=== PATIENT | male | born 1950 | race Caucasian/White ===

== ENCOUNTER → 2019-03-30 11:06 | Outpatient (BNVA) | payer MEDICARE, OTHER, SELFPAY | PROVIDERS: Family Provider Registered Nurse; PCP Registered Nurse; Visit Provider Registered Nurse | DX: E11.9 Type 2 diabetes mellitus without complications (principal); Z79.4 Long term (current) use of insulin; I10 Essential (primary) hypertension | CPT/HCPCS: 83036 ==

== ENCOUNTER → 2019-09-28 09:12 | Outpatient (BNVA) | payer MEDICARE, OTHER, SELFPAY | PROVIDERS: Family Provider Registered Nurse; PCP Registered Nurse; Visit Provider Registered Nurse | DX: E11.9 Type 2 diabetes mellitus without complications (principal); Z79.4 Long term (current) use of insulin; E78.5 Hyperlipidemia, unspecified; Z12.5 Encounter for screening for malignant neoplasm of prostate; I10 Essential (primary) hypertension; E11.69 Type 2 diabetes mellitus with other specified complication | CPT/HCPCS: 80053; 80061; 83036; 85025; G0103 ==

== ENCOUNTER 2019-11-15 13:42 | Outpatient (CLI) | payer MEDICARE, OTHER, SELFPAY ==
--- NOTE | 2019-11-15 13:30 | USCV_ITS ---
Nolan Palmer Age: 69 Gender: M : 1950 Exam Date: 11/15/2019 14:04 Ordering Phys: Jakob Dodd M.D ([email or web address]) Technologist: Arian Mckeon Exam Location: [facility] [place] Indication: DYSPNEA BP: 156 / 83 HR: 68 Rhythm: Sinus Technical Quality: Fair MEASUREMENTS (Male / Female) Normal Values 2D ECHO LV Diastolic Diameter PLAX 3.4 cm 4.2 - 5.9 / 3.9 - 5.3 cm LV Systolic Diameter PLAX 2.3 cm IVS Diastolic Thickness 0.9 cm 0.6 - 1.0 / 0.6 - 0.9 cm IVS Systolic Thickness 1.3 cm LVPW Diastolic Thickness 1.4 cm 0.6 - 1.0 / 0.6 - 0.9 cm LVPW Systolic Thickness 1.5 cm LVOT Diameter 2.1 cm LV Ejection Fraction 2D Teich 59.0 % LV Ejection Fraction MOD 2C 51.7 % LV Ejection Fraction 2C AL 50.4 % LA Diameter 4.4 cm LA Width 4.5 cm LA Height 5.9 cm RA Width 4.2 cm RA Height 5.0 cm M-MODE LV Diastolic Diameter MM 4.0 cm 4.2 - 5.9 / 3.9 - 5.3 cm LV Systolic Diameter MM 2.1 cm LV Ejection Fraction MM Teich 79.0 % IVS Diastolic Thickness MM 1.1 cm 0.6 - 1.0 / 0.6 - 0.9 cm IVS Systolic Thickness MM 1.7 cm LVPW Diastolic Thickness MM 1.5 cm 0.6 - 1.0 / 0.6 - 0.9 cm LVPW Systolic Thickness MM 1.9 cm RV Diastolic Diameter MM 2.4 cm Aortic Annulus Diameter 3.9 cm LA Ao Ratio MM 1.1 MV E Point Septal Separation 0.9 cm DOPPLER AV Peak Velocity 135.0 cm/s LVOT Peak Velocity 109.0 cm/s AV Area Cont Eq vti 3.0 cm squared AV Area Cont Eq pk 2.8 cm squared MV Area PHT 5.0 cm squared Mitral E to A Ratio 1.2 MV E' Velocity 45.0 cm/s Mitral E to MV E' Ratio 6.4 Mitral E to LV E' Lateral Ratio 7.7 Mitral E to LV E' Septal Ratio 5.5 TR Peak Velocity 163.7 cm/s TR Peak Gradient 10.7 mmHg TV Peak E Velocity 123.0 cm/s Right Atrial Pressure 3.0 mmHg Pulmonary Artery Systolic Pressu 13.7 mmHg PV Peak Velocity 94.0 cm/s FINDINGS Left Ventricle Normal left ventricular cavity size. Normal left ventricular systolic function. No regional wall motion abnormalities. Left ventricular ejection fraction is estimated at 65 %. Grade II/IV diastolic dysfunction, moderately elevated filling pressures. Right Ventricle The right ventricle is normal in size and function. Right Atrium The right atrium is normal in size. Left Atrium The left atrium is normal in size. Mitral Valve Structurally normal mitral valve without significant stenosis or prolapse. There is no mitral regurgitation. Aortic Valve Aortic valve sclerosis without stenosis. No aortic valve regurgitation. Tricuspid Valve Structurally normal tricuspid valve without significant stenosis or regurgitation. Pulmonary artery systolic pressure is normal. Pulmonic Valve Structurally normal pulmonic valve without significant stenosis. There is no pulmonic regurgitation. Pericardium Normal pericardium without effusion. Aorta Normal ascending aorta dimension. CONCLUSIONS 1-Normal left ventricular cavity size. Normal left ventricular systolic function. No regional wall motion abnormalities. Left ventricular ejection fraction is estimated at 65 %. Grade II/IV diastolic dysfunction, moderately elevated filling pressures. 2-There is no pericardial effusion. 3-No significant valve abnormalities. 4-Pulmonary artery systolic pressure is within normal limits. 5-Right atrial pressure is around 5 mm of mercury. 6-No significant change since the prior echocardiogram study of 04/26/2018. Erich Paz MD (Electronically Signed) Final Date: 15 November 2019 18:26 S
--- NOTE | 2019-11-15 14:15 | USCV_ITS ---
Nolan Palmer Age: 69 Gender: M : 1950 Exam Date: 11/15/2019 13:59 Ordering Phys: Jakob Dodd M.D ([email or web address]) Technologist: Exam Location: [facility] [place] Indication: CLAUDICATION RIGHT LEFT Brachial 153.00 mmHg Brachial 149.00 mmHg Pressure (mmHg) Waveform Pressure (mmHg) Waveform 189.00 STEEL RIGGER 186.00 188.00 DPA 190.00 1.24 Ankle/Brachial Index 1.24 113.00 Pre-Exercise Toe Pressure 129.00 0.74 Pre-Exercise Toe/Brachial Index 0.84 FINDINGS Normal resting ABIs bilaterally Normal resting TBIs bilaterally CONCLUSIONS No evidence of any significant arterial obstruction, based on the above findings. Dr Beth Zuluaga MD [facility] (Electronically Signed) Final Date: 15 November 2019 19:00 S
== END 2019-11-15 13:43 | disposition home or self-care (01) ==
LOC: RAD 13:47
PROVIDERS: PCP Registered Nurse; Visit Provider Internal Medicine
DX: I73.9 Peripheral vascular disease, unspecified (principal); R06.00 Dyspnea, unspecified; I51.81 Takotsubo syndrome
CPT/HCPCS: 93306; 93922

== ENCOUNTER 2019-12-04 09:11 | Outpatient (CLI) | payer MEDICARE, OTHER, SELFPAY ==
--- NOTE | 2019-12-04 12:59 | ONC FU_ITS ---
Dr. Reilly Patient Follow-Up Note Patient: Nolan Palmer Unit #: [id number]: 1950 Dicatated By: Van Reilly M.D.Date of Visit:Dec 04, 2019 Onc Med Follow-up/Prog Note Chief Complaint: Monoclonal gammopathy. 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 He was initially found to have an IgG kappa monoclonal gammopathy during evaluation for peripheral neuropathy in 2006. There was no evidence clinically of myeloma. He had previously been followed by Dr. Patel Hanna in [place]. I had seen him initially in March 2014. He has been followed on observation/expectant management. He has multiple medical illnesses. His main problems have been degenerative disease of the spine with chronic low back pain and neuropathy pain in the lower extremities. Both of these have limited his activity pretty significantly. He underwent extensive evaluation in [place] which included MRI, myelogram, CT scans, and ultrasound of both legs. In April 2017 he underwent placement of an implantable spinal cord stimulator. He tolerated the procedure well. His other illnesses include hypertension, hyperlipidemia, and type 2 diabetes. He has peripheral neuropathy, and he apparently has a diagnosis of multiple sclerosis. He also has degenerative arthritis and obstructive sleep apnea. He is a nonsmoker. INTERIM HISTORY: As of his follow-up visit in May 2016 his protein electrophoresis showed no significant change in the monoclonal proteinemia. There were 2 monoclonal bands present, one measuring 0.58 g/dL and the other measuring 0.17 g/dL. His 24-hour urine protein electrophoresis at that time showed a total protein excretion of 630 mg, but only 2.2% was monoclonal protein. In November 2016 there was a slight increase in the larger of the M proteins, to 0.73 g/dL. His other parameters, though, remained stable, and he continued on observation/expectant management. As of his follow-up visit in November 2018 there has been no further increase in the serum proteins and his overall clinical status appeared stable. He is seen for a followup visit. He has been feeling pretty good generally, though his energy is not great. He is able to do light housework. ECOG score is 1. His appetite is moderate. By our scale he has lost weight, but that may not be accurate. He does not have fever or night sweats. His breathing has been good. There is for having some dry cough. He does not complain of chest pain. He has no GI complaints other than constipation, which he manages adequately with stool softeners. He has frequent urination. He has chronic pain in his legs and feet, and he also has back pain. He does not complain of headache. He occasionally has lightheadedness. He also has some numbness/tingling in his legs and feet. Medications: amLODIPine Besylate 1 (10 mg) Tablet Oral daily, Aspirin 1 (81 mg) Tablet Oral daily, Crestor 1 (20 mg) Tablet Oral daily, Ferrous Sulfate 1 (325 (65 fe) mg) Tablet Oral daily, Fish Oil 1 Capsule Oral daily, Gabapentin 1 (600 mg) Tablet Oral t.i.d., Gemfibrozil 1 (600 mg) Tablet Oral t.i.d., Klor-Con M10 2 (10 meq) Tablet, controlled release Oral b.i.d., Levemir 100 Units (of 100 Units/mL) Subcutaneous daily, Magnesium 1 Tablet Oral daily, MetFORMIN HCl 1 (1000 mg) Tablet Oral b.i.d., NovoLOG 25 Units (of 100 Units/mL) Subcutaneous, Zinc 1 Capsule Oral daily Allergies: BARLEY and PEAS. Review of Systems: Constitutional - His energy is not great. Appetite is moderate. Weight is down a little by our scale. He has no fever or night sweats. ECOG score is 1, ENMT - No sinus congestion/drainage. No mouth sores. No sore throat or difficulty swallowing, Hematologic/Lymphatic - No abnormal bruising or bleeding, Respiratory - His breathing has been good. He has some nonproductive cough. No pleuritic pain or hemoptysis, Cardiovascular - No angina pain. No palpitations, Gastrointestinal - No nausea or vomiting. No heartburn or acid reflux. He has some constipation, but bowel function is adequate with stool softeners and/or prunes. No blood in the stool or black stools, Genitourinary (M) - No dysuria or hematuria. He has urinary frequency. No urgency or incontinence, Musculoskeletal - He has pain in his feet, legs, and back, Integumentary - No skin changes, Neurologic - No headache or dizziness. He has some neuropathy in his legs and feet. No other focal neurologic symptoms, Psychiatric - No anxiety. He has some depression. He has difficulty falling asleep. Vital Signs: Performed on Dec 04, 2019 08:35 Height - 66.00 in Weight - 246 lbs (HIGH) BSA - 2.18 sq.m BMI - 39.71 (HIGH) Temperature - 98.3 F (LOW) Pulse - 63 /min Respiration - 17 /min BP - 168/88 mm(hg) (HIGH) O2 Sat - 98 % Physical Examination: Constitutional - He looks pretty good generally, Eyes - Sclerae nonicteric. Conjunctivae clear, ENMT - There are no lesions noted in the oral cavity, Hematologic/Lymphatic - No cervical, clavicular, or axillary adenopathy, Respiratory - Lungs sound clear with good air movement bilaterally, Cardiovascular - Heart rhythm is regular. There is no murmur, gallop, or rub noted, Abdomen - Distended. Liver and spleen are not enlarged. There is no abdominal mass or ascites noted and there is no inguinal adenopathy, Extremities - Mild lower extremity edema, Neurologic - There are no focal neurologic deficits noted. Lab/Imaging: Test performed on Nov 27, 2019 09:07 Glucose 108 mg/dL Protein, Total 7.6 g/dL Albumin, SPE 4.2 g/dL BUN 28 mg/dL Creatinine 1.09 mg/dL Cr Clearance (Est) 99.12 mL/min Sodium 139 mmol/L Potassium 3.3 mmol/L Chloride 98 mmol/L CO2 31 mmol/L Calcium 10 mg/dL Albumin 4.5 g/dL Bilirubin, Total 0.2 mg/dL Alkaline Phosphatase 76 IU/L AST (SGOT) 28 IU/L ALT (SGPT) 12 IU/L WBC 7 10^9/L RBC 4.9 10^12/L HGB 14.5 g/dL HCT 43.6 % MCV 89 fl MCH 29.6 pg MCHC 33.3 g/dL RDW 13.1 % Platelet Count 227 10^9/L Neutrophils (Gran) 4.5 10^9/L Lymphocytes 1.6 10^9/L Monocytes 0.67 10^9/L Eosinophils 0.17 10^9/L Basophils 0.05 10^9/L Dbgig-9-tzncbptu 0.34 g/dL Ffrhm-2-eeqnqxme 0.97 g/dL Beta Globulin 0.90 g/dL Gamma Globulin 1.17 g/dL Protein electrophoresis shows no significant change in the monoclonal proteinemia with monoclonal protein 1 quantitating at 0.64 g/dL and monoclonal protein to quantitating at 0.10 g/dL. There was no monoclonal protein detected in the 24-hour urine specimen. Impression: 1. 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 His other medical illnesses include: 2. Degenerative disease of the spine with chronic low back pain. 3. Type 2 diabetes with peripheral neuropathy. 4. Multiple sclerosis. 5. Hypertension. 6. Hyperlipidemia. 7. Obstructive sleep apnea. 8. GERD. During follow-up he had ongoing problems with neuropathy pain, but he did have significant improvement with a spinal cord stimulator. His overall clinical status has otherwise been stable. Thus far there has been no significant change in his protein electrophoresis studies, and no evidence of myeloma by clinical evaluation. Plan: He remains on observation/expectant management. He will be scheduled for follow-up visit in one year. Signed By: Van Reilly M.D. <<Signature on File>>
== END 2019-12-04 09:12 | disposition home or self-care (01) ==
LOC: ONCMED 09:11
PROVIDERS: PCP Registered Nurse; Visit Provider Internal Medicine Medical Oncology
DX: D47.2 Monoclonal gammopathy (principal); M47.9 Spondylosis, unspecified; G89.29 Other chronic pain; M54.5 Low back pain; E11.42 Type 2 diabetes mellitus with diabetic polyneuropathy; G35 Multiple sclerosis; I10 Essential (primary) hypertension; E78.5 Hyperlipidemia, unspecified; G47.33 Obstructive sleep apnea (adult) (pediatric); K21.9 Gastro-esophageal reflux disease without esophagitis
CPT/HCPCS: G0463

== ENCOUNTER → 2020-03-25 12:05 | Outpatient (BNVA) | payer MEDICARE, OTHER, SELFPAY | PROVIDERS: PCP Registered Nurse; Visit Provider Registered Nurse | DX: E11.9 Type 2 diabetes mellitus without complications (principal); E78.5 Hyperlipidemia, unspecified; Z79.4 Long term (current) use of insulin | CPT/HCPCS: 80053; 80061; 83036; 85025 ==

== ENCOUNTER → 2020-09-29 09:38 | Outpatient (BNVA) | payer MEDICARE, OTHER, SELFPAY | PROVIDERS: PCP Registered Nurse; Visit Provider Registered Nurse | DX: E11.9 Type 2 diabetes mellitus without complications; Z79.4 Long term (current) use of insulin; E78.5 Hyperlipidemia, unspecified; I10 Essential (primary) hypertension; E66.01 Morbid (severe) obesity due to excess calories; Z68.41 Body mass index [BMI] 40.0-44.9, adult | CPT/HCPCS: 80053; 80061; 83036; 85025 ==

== ENCOUNTER → 2020-11-18 15:26 | Outpatient (BNVA) | payer MEDICARE, SELFPAY | PROVIDERS: PCP Registered Nurse; Visit Provider Registered Nurse | DX: E11.9 Type 2 diabetes mellitus without complications (principal); R53.83 Other fatigue; Z79.4 Long term (current) use of insulin; Z23 Encounter for immunization | CPT/HCPCS: 81000; 87077; 87086; 87184 ==

== ENCOUNTER → 2020-12-05 15:37 | Outpatient (BNVA) | payer MEDICARE, SELFPAY | PROVIDERS: PCP Registered Nurse; Visit Provider Registered Nurse | DX: R39.9 Unspecified symptoms and signs involving the genitourinary system (principal) | CPT/HCPCS: 81000 ==

== ENCOUNTER 2021-01-19 14:51 | Outpatient (CLI) | payer MEDICARE, SELFPAY ==
[2021-01-19 15:56] LABS: Basophils # 0.1 10^3/uL (0.0-0.1); Eosinophils # 0.1 10^3/uL (0.0-0.8); Eosinophils % 1.9 %; Hematocrit 41.5 % (42.0-52.0); Hemoglobin 13.6 g/dL (11.7-16.6); Lymphocytes # 1.3 10^3/uL (0.8-4.8); Lymphocytes % 25.4 %; Mean Corpuscular HGB Conc 32.8 g/dL (30.0-36.0); Mean Corpuscular Volume 91.4 fl (80-94); Monocytes # 0.4 10^3/uL (0.2-0.9); Monocytes % 8.1 %; Neutrophils # 3.26 10^3/uL (1.8-7.7); Neutrophils % 63.2 %; Nucleated Red Blood Cells % 0 %; Platelet Count 176 10^3/cmm (130-400); Red Blood Count 4.54 10^6/uL (4.1-5.3); Red Cell Distribution Width 14.1 % (12.1-15.1); White Blood Count 5.2 10^3/uL (4.0-10.0)
[2021-01-19 16:15] LABS: Alanine Aminotransferase < 5 U/L (0-41); Albumin Level 3.8 g/dL (3.5-5.2); Alkaline Phosphatase 65 IU/L (40-130); Anion Gap 18.8 (5-19); Aspartate Amino Transferase 19 U/L (0-40); Blood Urea Nitrogen 24 mg/dL (8-23); Calcium 8.2 mg/dL (8.5-10.5); Carbon Dioxide 25 mmol/L (22-29); Chloride 100 mmol/L (98-107); Globulin 2.9 g/dL (1.3-4.6); Glucose 110 mg/dL (65-115); Osmolality Calculated 295 mOsm/kg (285-295); Potassium 3.8 mmol/L (3.5-5.1); Sodium 140 mmol/L (136-145); Total Bilirubin 0.2 mg/dL (0.15-1.2); Total Protein 6.7 g/dL (6.6-8.7)
--- NOTE | 2021-01-20 07:31 | ONC FU_ITS ---
Dr. Reilly Patient Follow-Up Note Patient: Nolan Palmer Unit #: [id number]: 1950 Dicatated By: Van Reilly M.D.Date of Visit:Jan 19, 2021 Onc Med Follow-up/Prog Note Chief Complaint: Monoclonal gammopathy. 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 He was initially found to have an IgG kappa monoclonal gammopathy during evaluation for peripheral neuropathy in 2006. There was no evidence clinically of myeloma. He had previously been followed by Dr. Patel Hanna in [place]. I had seen him initially in March 2014. He continued on expectant management. As of May 2016 his protein electrophoresis showed no significant change in the monoclonal proteinemia. There were 2 monoclonal bands present, one measuring 0.58 g/dL and the other measuring 0.17 g/dL. His 24-hour urine protein electrophoresis at that time showed a total protein excretion of 630 mg, but only 2.2% was monoclonal protein. In November 2016 there was a slight increase in the larger of the M proteins, to 0.73 g/dL. His other parameters, though, remained stable, and he continued on expectant management. As of 11/27/2019 his M proteins were stable, quantitating at 0.64 and 0.10 g/dL. He has multiple medical illnesses. His main problems have been degenerative disease of the spine with chronic low back pain and neuropathy pain in the lower extremities. Both of these have limited his activity pretty significantly. He underwent extensive evaluation in [place] which included MRI, myelogram, CT scans, and ultrasound of both legs. In April 2017 he underwent placement of an implantable spinal cord stimulator. He tolerated the procedure well. His other illnesses include hypertension, hyperlipidemia, and type 2 diabetes. He has peripheral neuropathy, and he apparently has a diagnosis of multiple sclerosis. He also has degenerative arthritis and obstructive sleep apnea. He is a nonsmoker. INTERIM HISTORY: He is seen for a followup visit. He continues to have limited activity, mainly due to weakness in his legs. His says he also has been sleeping a lot more. He typically naps twice a day for 1 to 2 hours. He is still doing some light work. ECOG score is 1. He says his appetite is average. He does not have fever or night sweats. He has not had sore mouth or throat. He has occasional episodes of gurgling and coughing. He has some shortness of breath. He is on CPAP. He does not complain of chest pain. He has no GI complaints other than some chronic constipation. He has frequent urination. He currently is not having any significant joint or bone pain, but he does have neuropathy pain. Medications: amLODIPine Besylate 1 (10 mg) Tablet Oral daily, Aspirin 1 (81 mg) Tablet Oral daily, Crestor 1 (20 mg) Tablet Oral daily, Ferrous Sulfate 1 (325 (65 fe) mg) Tablet Oral daily, Fish Oil 1 Capsule Oral daily, Gabapentin 1 (600 mg) Tablet Oral t.i.d., Gemfibrozil 1 (600 mg) Tablet Oral t.i.d., Klor-Con M10 2 (10 meq) Tablet, controlled release Oral b.i.d., Levemir 100 Units (of 100 Units/mL) Subcutaneous daily, Magnesium 1 Tablet Oral daily, MetFORMIN HCl 1 (1000 mg) Tablet Oral b.i.d., NovoLOG 25 Units (of 100 Units/mL) Subcutaneous, Zinc 1 Capsule Oral daily Allergies: BARLEY and PEAS. Vital Signs: Performed on Jan 19, 2021 16:04 Height - 66.00 in Weight - 259.8 lbs (HIGH) BSA - 2.24 sq.m BMI - 41.93 (HIGH) Temperature - 96.6 F (LOW) Pulse - 58 /min (LOW) Respiration - 16 /min BP - 140/80 mm(hg) O2 Sat - 97 % Pain - 0 Fatigue - 5 Physical Examination: Constitutional - He has limited mobility. He otherwise looks pretty good generally, Eyes - Sclerae nonicteric. Conjunctivae clear, ENMT - There are no lesions noted in the oral cavity, Hematologic/Lymphatic - No cervical, clavicular, or axillary adenopathy, Respiratory - Lungs sound clear with good air movement bilaterally, Cardiovascular - Heart rhythm is regular. There is no murmur, gallop, or rub noted, Abdomen - Mildly distended and tympanic. Liver and spleen are not enlarged. There is no abdominal mass or ascites noted and there is no inguinal adenopathy, Extremities - Mild lower extremity edema, worse on the right. Dorsalis pedis pulses are palpable bilaterally, Neurologic - There are no focal neurologic deficits noted. Lab/Imaging: Test performed on Jan 19, 2021 15:38 Sodium 140 mmol/L Potassium 3.8 mmol/L Chloride 100 mmol/L CO2 25 mmol/L Anion Gap 18.8 BUN 24 mg/dL Creatinine 1.0 mg/dL Cr Clearance (Est) 112.9400 mL/min Glucose 110 mg/dL Osmolality - Calculated 295 mOsm/kg Calcium 8.2 mg/dL Protein, Total 6.7 g/dL Albumin 3.8 g/dL Globulin 2.9 g/dL Bilirubin, Total 0.2 mg/dL ALT (SGPT) < 5 U/L AST (SGOT) 19 U/L Alkaline Phosphatase 65 IU/L WBC 5.2 10 3/uL RBC 4.54 10 6/uL HGB 13.6 g/dL HCT 41.5 % MCV 91.4 fl MCH 30.0 pg MCHC 32.8 g/dL RDW 14.1 % Platelet Count 176 10 3/cmm MPV 10.0 fL Neutrophils 3.26 10 3/uL Lymphocytes 1.3 10 3/uL Monocytes 0.4 10 3/uL Eosinophils 0.1 10 3/uL Basophils 0.1 10 3/uL Neutrophil % 63.2 % Lymphocyte % 25.4 % Monocyte % 8.1 % Eosinophil % 1.9 % Basophils % 1.0 % NRBC % 0 % Problem List: 1. 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 2. Degenerative disease of the spine with chronic low back pain. 3. Type 2 diabetes with peripheral neuropathy. 4. Multiple sclerosis. 5. Hypertension. 6. Hyperlipidemia. 7. Obstructive sleep apnea. 8. GERD. 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 During follow-up he has had ongoing problems with neuropathy pain, but there has been no evidence of any clinical significance to the monoclonal gammopathy and thus far there has been no progression of the M proteins. The results of his current protein electrophoresis studies are pending. In the absence of any significant increase in his M protein, he will continue on expectant management. I will tentatively plan a follow-up visit in 1 year. Signed By: Van Reilly M.D. <<Signature on File>>
[2021-01-21 10:03] LABS: PROTEIN, TOTAL 6.6 g/dL (6.1-8.1)
[2021-01-21 15:13] LABS: KAPPA LIGHT CHAIN, FREE, SERUM 91.9 mg/L (3.3-19.4); KAPPA/LAMBDA LIGHT CHAINS FREE 6.29 (0.26-1.65); LAMBDA LIGHT CHAIN, FREE, SERU 14.6 mg/L (5.7-26.3)
[2021-01-21 15:31] LABS: ABNORMAL PROTEIN BAND 1 0.1 g/dL (NONE DETECTED); ABNORMAL PROTEIN BAND 2 0.8 g/dL (NONE DETECTED); ALBUMIN 3.5 g/dL (3.8-4.8); ALPHA 1 GLOBULIN 0.4 g/dL (0.2-0.3); ALPHA 2 GLOBULIN 0.9 g/dL (0.5-0.9); BETA 1 GLOBULIN 0.5 g/dL (0.4-0.6); BETA 2 GLOBULIN 0.3 g/dL (0.2-0.5); GAMMA GLOBULIN 1.1 g/dL (0.8-1.7)
== END 2021-01-19 14:52 | disposition home or self-care (01) ==
PROVIDERS: PCP Registered Nurse; Visit Provider Internal Medicine Medical Oncology
DX: D47.2 Monoclonal gammopathy (principal); M47.9 Spondylosis, unspecified; I10 Essential (primary) hypertension; E78.5 Hyperlipidemia, unspecified; E11.9 Type 2 diabetes mellitus without complications; G35 Multiple sclerosis; G47.33 Obstructive sleep apnea (adult) (pediatric); G62.9 Polyneuropathy, unspecified; R53.1 Weakness; M54.50 Low back pain, unspecified; G89.29 Other chronic pain; Z79.82 Long term (current) use of aspirin; Z79.899 Other long term (current) drug therapy
CPT/HCPCS: 36415; 80053; 83883; 84155; 84165; 85025; 99214

== ENCOUNTER → 2021-01-21 09:45 | Outpatient (BNVA) | payer MEDICARE, SELFPAY | PROVIDERS: PCP Registered Nurse; Visit Provider Internal Medicine Medical Oncology | DX: E11.69 Type 2 diabetes mellitus with other specified complication (principal); E78.5 Hyperlipidemia, unspecified; I10 Essential (primary) hypertension; Z79.4 Long term (current) use of insulin | CPT/HCPCS: 84156 ==

== ENCOUNTER → 2021-05-04 09:34 | Outpatient (BNVA) | payer MEDICARE, OTHER, SELFPAY | PROVIDERS: PCP Registered Nurse; Visit Provider Registered Nurse | DX: E11.9 Type 2 diabetes mellitus without complications (principal); Z79.4 Long term (current) use of insulin; E78.5 Hyperlipidemia, unspecified; I10 Essential (primary) hypertension; G62.9 Polyneuropathy, unspecified | CPT/HCPCS: 80053; 80061; 81000; 83036 ==

== ENCOUNTER → 2021-08-07 08:34 | Outpatient (BNVA) | payer MEDICARE, SELFPAY | PROVIDERS: PCP Registered Nurse; Visit Provider Internal Medicine | DX: I73.9 Peripheral vascular disease, unspecified (principal); I10 Essential (primary) hypertension; G47.33 Obstructive sleep apnea (adult) (pediatric); E78.5 Hyperlipidemia, unspecified; E11.69 Type 2 diabetes mellitus with other specified complication; Z79.4 Long term (current) use of insulin | CPT/HCPCS: 99214 ==

== ENCOUNTER → 2021-09-30 11:31 | Outpatient (BNVA) | payer MEDICARE, SELFPAY | PROVIDERS: PCP Registered Nurse; Visit Provider Registered Nurse | DX: E11.69 Type 2 diabetes mellitus with other specified complication; Z79.4 Long term (current) use of insulin; E78.5 Hyperlipidemia, unspecified | CPT/HCPCS: 80053; 80061; 83036; 85025 ==

== ENCOUNTER 2022-01-13 06:00 | Outpatient (RCR) | payer MEDICARE, SELFPAY | END 2022-01-13 23:59 | disposition home or self-care (01) | LOC: SPT 06:00 | PROVIDERS: PCP Registered Nurse; Visit Provider Registered Nurse | DX: R26.89 Other abnormalities of gait and mobility (principal) | CPT/HCPCS: 97161 ==

== ENCOUNTER 2022-01-14 06:00 | Outpatient (RCR) | payer MEDICARE, SELFPAY | END 2022-02-13 23:59 | disposition home or self-care (01) | LOC: SPT 06:00 | PROVIDERS: PCP Registered Nurse; Visit Provider Registered Nurse | DX: R26.89 Other abnormalities of gait and mobility (principal) | CPT/HCPCS: 97110; 97112 ==

== ENCOUNTER 2022-01-26 10:04 | Oncology outpatient (recurring) (ONCR) | payer MEDICARE, SELFPAY ==
[2022-01-22 10:16] LABS: Basophils # 0.1 10^3/uL (0.0-0.1); Basophils % 1.1 %; Eosinophils # 0.2 10^3/uL (0.0-0.8); Eosinophils % 3.8 %; Hematocrit 43.7 % (42.0-52.0); Hemoglobin 14.2 g/dL (11.7-16.6); Lymphocytes # 1.5 10^3/uL (0.8-4.8); Mean Corpuscular HGB Conc 32.5 g/dL (30.0-36.0); Mean Corpuscular Hemoglobin 30.4 pg (28.0-34.0); Mean Corpuscular Volume 93.6 fl (80-94); Mean Platelet Volume 10.2 fL (7.4-10.4); Monocytes # 0.5 10^3/uL (0.2-0.9); Monocytes % 8.2 %; Neutrophils # 3.26 10^3/uL (1.8-7.7); Neutrophils % 59.5 %; Nucleated Red Blood Cells % 0 %; Platelet Count 186 10^3/cmm (130-400); Red Blood Count 4.67 10^6/uL (4.1-5.3); Red Cell Distribution Width 13.7 % (12.1-15.1); White Blood Count 5.5 10^3/uL (4.0-10.0)
[2022-01-22 10:33] LABS: Alanine Aminotransferase 9 U/L (0-41); Albumin Level 3.7 g/dL (3.5-5.2); Alkaline Phosphatase 75 U/L (40-130); Anion Gap 15.6 (5-19); Aspartate Amino Transferase 26 U/L (0-40); Blood Urea Nitrogen 22 mg/dL (8-23); Calcium 9.1 mg/dL (8.5-10.5); Carbon Dioxide 27 mmol/L (22-29); Chloride 101 mmol/L (98-107); Globulin 3.2 g/dL (1.3-4.6); Glucose 118 mg/dL (65-115); Immunoglobulin IGA 106 mg/dL (70-400); Immunoglobulin IGG 1209 mg/dL (700-1600); Osmolality Calculated 294 mOsm/kg (285-295); Potassium 3.6 mmol/L (3.5-5.1); Sodium 140 mmol/L (136-145); Total Bilirubin 0.2 mg/dL (0.15-1.2); Total Protein 6.9 g/dL (6.6-8.7)
[2022-01-22 10:44] LABS: Immunoglobulin IGM 26 mg/dL (40-230)
[2022-01-23 06:29] LABS: PROTEIN, TOTAL 6.6 g/dL (6.1-8.1)
[2022-01-25 11:30] LABS: KAPPA LIGHT CHAIN, FREE, SERUM 117.4 mg/L (3.3-19.4); KAPPA/LAMBDA LIGHT CHAINS FREE 8.57 (0.26-1.65); LAMBDA LIGHT CHAIN, FREE, SERU 13.7 mg/L (5.7-26.3)
[2022-01-25 16:24] LABS: ABNORMAL PROTEIN BAND 1 0.2 g/dL (NONE DETECTED); ABNORMAL PROTEIN BAND 2 0.8 g/dL (NONE DETECTED); ALBUMIN 3.5 g/dL (3.8-4.8); ALPHA 1 GLOBULIN 0.3 g/dL (0.2-0.3); ALPHA 2 GLOBULIN 0.9 g/dL (0.5-0.9); BETA 1 GLOBULIN 0.5 g/dL (0.4-0.6); BETA 2 GLOBULIN 0.3 g/dL (0.2-0.5); GAMMA GLOBULIN 1.2 g/dL (0.8-1.7)
[2022-01-27 13:10] LABS: PROTEIN, TOTAL, 24 HR UR 1125 mg/24 h (<150); Protein/Creatinine Ratio 0.536 (<0.100); Protein/Creatinine Ratio 536 mg/g creat (<100)
[2022-01-28 08:44] LABS: ALBUMIN 69 %; ALPHA-1-GLOBULINS 6 %; ALPHA-2-GLOBULINS 7 %; BETA GLOBULINS 13 %; GAMMA GLOBULINS 5 %
== END 2022-02-13 23:59 | disposition home or self-care (01) ==
PROVIDERS: PCP Registered Nurse; Visit Provider Internal Medicine Medical Oncology
DX: D47.2 Monoclonal gammopathy (principal)
CPT/HCPCS: 36415; 80053; 82784; 83883; 84155; 84156; 84165; 84166; 85025; 86334; 97110; 97112

== ENCOUNTER 2022-01-29 12:22 | Inpatient (IN) | payer MEDICARE, SELFPAY ==
[2022-01-29] VITALS (26 sets, daily range): BP systolic 134–200; BP diastolic 45–78; PULSE 35–62; RESP 13–24; TEMP 36.4–36.9; O2SAT 94–98; BMI 40.1
--- NOTE | 2022-01-29 12:33 | ECG_ITS ---
[facility] Test Date: 2022-01-29 Pat Name: Nolan Palmer Department: Room: Gender: Male [employer]: : 1950 Requested By: Deborah Isaac Order Number: [id number] Can MD: Jakob Dodd M.D. Measurements Intervals Bessie Rate: 32 P: 0 VA: 0 QRS: 3 QRSD: 110 T: 48 QT: 466 QTc: 344 Interpretive Statements SINUS BRADYCARDIA WITH 2ND DEGREE AV BLOCK, 2:1 OR MOBITZ TYPE II CRITICAL TEST RESULT Compared to ECG 05/31/2018 15:08:29 Sinus rhythm no longer present First degree AV block no longer present Left ventricular hypertrophy no longer present Myocardial infarct finding no longer present Electronically Signed On 01-29-2022 13:46:25 [employer] by Jakob Dodd M.D. [id number]
--- NOTE | 2022-01-29 13:01 | XR_ITS ---
WS: [id number] Portable AP upright chest, 01/29/2022 Clinical Data: bradycardia Comparison: Portable chest, 05/31/2018. Findings: No nodules, masses or effusions are seen. The heart is enlarged. The pulmonary vascularity is not increased. No pneumonia or pneumothorax is seen. The aortic arch and descending thoracic aorta show tortuosity. There are epidural stimulator leads in the midthoracic spine. There are monitor bernie ds on the chest wall. XR/XR chest 1V portable [id number] Impression: Atherosclerosis and cardiomegaly.
--- NOTE | 2022-01-29 13:14 | ED_ITS ---
HPI - Arrhythmia/Palpitations General: Chief Complaint: Arrhythmia/Palpitations Stated Complaint: Kathy sent for low hr Time Seen by Provider: 01/29/22 12:58 Source: patient and family Mode of arrival: wheelchair Limitations: no limitations History of Present Illness: See nursing assessment. Patient sent over from junior network engineer office after patient had bradycardia while in physical therapy today. Patient completed his physical therapy vital signs were checked and his heart rate was in the 30s. Patient was sent to cardiology clinic and saw Dr. Dodd. Architect Marine sent patient to the ER for further evaluation. Architect Marine states he is leaving this afternoon and on-call junior network engineer has be en contacted and informed of his findings. Patient reportedly had blocked PACs and possible Mobitz 1 in the clinic. Architect Marine states he may require permanent pacemaker. He asked that I contact on-call junior network engineer and admit to hospitalist. Patient denies any chest pain. He does have dyspnea on exertion. He claims the dyspnea on exertion has been chronic though. He denies any peripheral edema. Associated symptoms: Deny anxiety, nausea or vomiting Review of Systems Const: Denies: fever(s) or chills Eyes: Denies: change in vision ENMT: Denies: throat pain Card: Denies: chest pain or palpitations Resp: Reports: other (Dyspnea on exertion); Denies: wheezing GI: Denies: abdominal pain, nausea or vomiting : Denies: flank pain Musc: Denies: neck pain or back pain Skin/Breast: Denies: rash or pruritus Neuro: Reports: other (Patient claims he has peripheral neuropathy from his diabetes. ); Denies: headache(s) Psych: Denies: anxiety Dylon/Lymph: Denies: enlarged lymph nodes PFSH ED PFSH: Medical History (Updated 01/29/22 @ 16:22 by Jackson Browne MD) Enrolled in chronic care management Essential hypertension Hyperlipidemia associated with type 2 diabetes mellitus Multiple sclerosis Myeloma Neuropathy Obesity CARMEN (obstructive sleep apnea) Surgical History (Updated 01/29/22 @ 16:22 by Jackson Browne MD) S/P hemorrhoidectomy Family History Father CAD (coronary artery disease) Mother CAD (coronary artery disease) Hypertension Social History Smoking and tobacco status: never smoked Alcohol intake: never Adopted: No Caregiver/support person: No Lives independently: No Household members: spouse Marital status: Current occupational status: disabled Sexually active: Yes Current gender identity: Male Supplemental [facility] Information: Peripheral neuropathy, diabetic retinopathy. Multiple sclerosis Physical Exam Const: COMMON NORMALS: no acute distress, patient oriented x3, no limitations and well nourished GENERAL APPEARANCE: cooperative HENMT: COMMON NORMALS: normocephalic and atraumatic HEAD & SCALP: normocephalic and atraumatic FACE & SINUS: normal facial exam Eye: COMMON NORMALS: EOMs intact bilaterally Neck/C-Spine: COMMON NORMALS: full ROM, no lymphadenopathy, supple and no meningeal signs GENERAL: Yes normal visual inspection Lymph: LYMPHATIC: no lymphadenopathy noted Chest: COMMONS NORMALS: normal inspection of the chest and normal palpation of entire chest wall CHEST: No Ecchymosis present and No rash Resp: COMMON NORMALS: normal respiratory effort, No retractions and clear to auscultation bilaterally EFFORT & INSPECTION: No respiratory distress AUSCULTATION: clear to auscultation bilaterally Cardio: COMMON NORMALS: Peripheral pulses 2+ throughout JUGULAR VENOUS DISTENTION: no JVD RATE: bradycardic RHYTHM: abnormal rhythm PERIPHERAL PULSES: Peripheral pulses 2+ throughout GI: COMMON NORMALS: Normal to inspection, nondistended, normoactive bowel sounds present and non-tender : COMMON NORMALS: Yes no CVA tenderness BLADDER/KIDNEY EXAM: Yes no CVA tenderness Back/Pelvis: COMMON NORMALS: no CVA tenderness Extremity: COMMON NORMALS: normal to inspection, full ROM and capillary refill normal Neuro: COMMON NORMALS: patient oriented x3, CN's II-XII intact bilaterally and no focal motor deficits MENINGEAL SIGNS: Yes no meningeal signs OTHER: Chronic peripheral neuropathy Psych: COMMON NORMALS: mental status grossly normal and Normal thought process present THOUGHT PROCESS: Normal thought process present Skin: COMMON NORMALS: no rashes or lesions noted and no wounds GENERAL SKIN EXAM: no rashes or lesions noted Course Vital Signs: Vital signs: Vital Signs Temperature 98.4 F 01/29/22 21:19 Pulse Rate 40 L 01/29/22 22:00 Respiratory Rate 18 01/29/22 18:05 Blood Pressure 188/76 01/29/22 18:05 Pulse Oximetry 97 01/29/22 18:05 Oxygen Delivery Me thod 01/29/22 21:19 MDM - Arrhythmia/Palpitations Medical Decision Making Patient appears to have Mobitz 2 on his EKG now. Telemetry shows bradycardia in the 30s and 40s. Blood pressure 150s over 40s. I did discuss case with Dr. Dodd. He asked that consult Dr. Ahmadi operations supervisor for cardiology. 1512: Discussed case with Dr. Roberts a hospitalist on-call. He will admit patient to ICU. Consult cardiology. Lab Data 01/29/22 13:22 01/29/22 13:22 Radiology Impressions Chest X-Ray 01/29/22 13:01 Impression: Atherosclerosis and cardiomegaly. Laboratory Results WBC 6.0 10^3/uL (4.0-10.0) 01/29/22 13:22 RBC 4.99 10^6/uL (4.1-5.3) 01/29/22 13:22 Hgb 15.1 g/dL (11.7-16.6) 01/29/22 13:22 Hct 47.2 % (42.0-52.0) 01/29/22 13:22 MCV 94.6 fl (80-94) H 01/29/22 13:22 MCH 30.3 pg (28.0-34.0) 01/29/22 13:22 MCHC 32.0 g/dL (30.0-36.0) 01/29/22 13:22 RDW 14.1 % (12.1-15.1) 01/29/22 13:22 Plt Count 183 10^3/cmm (130-400) 01/29/22 13:22 MPV 10.2 fL (7.4-10.4) 01/29/22 13:22 Neut % (Auto) 66.1 % 01/29/22 13:22 Lymph % (Auto) 21.4 % 01/29/22 13:22 Karnes % (Auto) 8.8 % 01/29/22 13:22 Eos % (Auto) 2.7 % 01/29/22 13:22 Baso % (Auto) 0.8 % 01/29/22 13:22 Neut # (Auto) 3.96 10^3/uL (1.8-7.7) 01/29/22 13:22 Lymph # (Auto) 1.3 10^3/uL (0.8-4.8) 01/29/22 13:22 Karnes # (Auto) 0.5 10^3/uL (0.2-0.9) 01/29/22 13:22 Eos # (Auto) 0.2 10^3/uL (0.0-0.8) 01/29/22 13:22 Baso # (Auto) 0.1 10^3/uL (0.0-0.1) 01/29/22 13:22 Nucleated RBC % (auto) 0 % 01/29/22 13:22 Nucleated RBCs # 0.0 /100WBC 01/29/22 13:22 PT 12.50 SECONDS (12.1-14.9) 01/29/22 13:22 INR 0.91 (0.8-1.2) 01/29/22 13:22 APTT 28.4 SECONDS (23.9-36.7) 01/29/22 13:22 Sodium 139 mmol/L (136-145) 01/29/22 13:22 Potassium 3.7 mmol/L (3.5-5.1) 01/29/22 13:22 Chloride 97 mmol/L (98-107) L 01/29/22 13:22 Carbon Dioxide 30 mmol/L (22-29) H 01/29/22 13:22 Anion Gap 15.7 (5-19) 01/29/22 13:22 BUN 26 mg/dL (8-23) H 01/29/22 13:22 Creatinine 1.2 mg/dL (0.7-1.2) 01/29/22 13:22 GFR Calculation Not Reportable 01/29/22 13:22 Glucose 136 mg/dL (65-115) H 01/29/22 13:22 POC Glucose 133 mg/dL (70-110) H 01/29/22 14:12 Calculated Osmolality 295 mOsm/kg (285-295) 01/29/22 13:22 Calcium 9.9 mg/dL (8.5-10.5) 01/29/22 13:22 Magnesium 1.4 mg/dL (1.7-2.3) L 01/29/22 13:22 Troponin T Baseline 26 ng/L (0-15) H 01/29/22 13:22 Troponin T 120 Minute 21.19 ng/L (0-15) H 01/29/22 16:00 Delta Troponin T -4.81 ABS# (0-10) L 01/29/22 16:00 NT-Pro-B Natriuret Pep 223 pg/mL (0-125) H 01/29/22 13:22 NT-Pro-B Natriuret Pep 224 pg/mL (0-125) H 01/29/22 13:22 Vitamin B12 388 pg/mL (232-1245) 01/29/22 13:22 Folate > 20.0 ng/mL (4.5-32.2) 01/29/22 13:22 Procalcitonin 0.06 ng/mL (0-0.5) 01/29/22 13:22 TSH 3.07 uIU/mL (0.27-4.20) 01/29/22 13:22 TSH 3.13 uIU/mL (0.27-4.20) 01/29/22 13:22 Imaging Data CXR: Radiologist's impression: Ordering Provider/Ordering MD: Addy Naylor MD Date of Service: 01/29/22 Procedure(s): XR chest 1V portable [id number] Accession Number(s): [id number] Report Number: [id number] WS: [id number] Portable AP upright chest, 01/29/2022 Clinical Data: bradycardia Comparison: Portable chest, 05/31/2018. Findings: No nodules, masses or effusions are seen. The heart is enlarged. The pulmonary vascularity is not increased. No pneumonia or pneumothorax is seen. The aortic arch and descending thoracic aorta show tortuosity. There are epidural stimulator leads in the midthoracic spine. There are monitor leads on the chest wall. XR/XR chest 1V portable [id number] Impression: Atherosclerosis and cardiomegaly. ? Dictated By: Rajwinder Mcguire MD Signed By: Rajwinder Mcguire MD Signed Date/Time: 01/29/22 1313 EKG Data EKG 1: I personally reviewed and interpreted this EKG as follows: EKG interpretation date: 01/29/22 EKG interpretation time: 13:04 Prior EKG tracings: not available for review Interpretation: Sinus bradycardia with Mobitz 2 AV block. Left axis. Normal ST segment. Prolonged IA interval. Normal QT interval. Normal QRS. Heart rate 32 Other EKG comments: Chest X-Ray 01/29/22 13:01 Impression: Atherosclerosis and cardiomegaly. EKG 2: I personally reviewed and interpreted this EKG as follows: EKG interpretation date: 01/29/22 EKG interpretation time: 15:36 Prior EKG tracings: available for review Interpretation: Impression sinus bradycardia with Mobitz type I second-degree AV block. Appears changed from previous EKG which patient appeared to have a Mobitz type II block. Normal axis. Extended IA interval. Normal ST segment. Normal QRS. Normal T waves. Other EKG comments: Chest X-Ray 01/29/22 13:01 Impression: Atherosclerosis and cardiomegaly. Critical Care Time Critical Care Time: Critical Care Time: Yes Total Critical Care Time: 65 Attestation: Patient with profound bradycardia and Mobitz block. Patient was placed on pacer pads. External pacemaker was not activated but was operations supervisor. Consulted cardiology and hospitalist. See orders. 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
[2022-01-29 13:41] LABS: Basophils # 0.1 10^3/uL (0.0-0.1); Basophils % 0.8 %; Eosinophils # 0.2 10^3/uL (0.0-0.8); Eosinophils % 2.7 %; Hematocrit 47.2 % (42.0-52.0); Hemoglobin 15.1 g/dL (11.7-16.6); Lymphocytes # 1.3 10^3/uL (0.8-4.8); Lymphocytes % 21.4 %; Mean Corpuscular Hemoglobin 30.3 pg (28.0-34.0); Mean Corpuscular Volume 94.6 fl (80-94); Mean Platelet Volume 10.2 fL (7.4-10.4); Monocytes # 0.5 10^3/uL (0.2-0.9); Monocytes % 8.8 %; Neutrophils # 3.96 10^3/uL (1.8-7.7); Neutrophils % 66.1 %; Nucleated Red Blood Cells % 0 %; Platelet Count 183 10^3/cmm (130-400); Red Blood Count 4.99 10^6/uL (4.1-5.3); Red Cell Distribution Width 14.1 % (12.1-15.1)
[2022-01-29 14:14] LABS: Troponin(5th) Baseline 26 ng/L (0-15)
[2022-01-29 14:17] LABS: Glucose Point of Care 133 mg/dL (70-110)
[2022-01-29 14:33] LABS: Partial Thromboplastin Time 28.4 SECONDS (23.9-36.7)
--- NOTE | 2022-01-29 15:02 | ECG_ITS ---
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 Measurements Intervals [place] Rate: 45 P: 0 DE: 0 QRS: 6 QRSD: 104 T: 56 QT: 448 QTc: 389 Interpretive Statements SINUS BRADYCARDIA WITH 2ND DEGREE AV BLOCK, MOBITZ TYPE I (WENCKEBACH) CRITICAL TEST RESULT Compared to ECG 01/29/2022 13:03:44 No significant changes Electronically Signed On 01-29-2022 23:53:05 PORTABLE POWER TOOL REPAIRER by Jakob Dodd M.D. [id number]
[2022-01-29 15:08] LABS: Anion Gap 15.7 (5-19); Blood Urea Nitrogen 26 mg/dL (8-23); Calcium 9.9 mg/dL (8.5-10.5); Carbon Dioxide 30 mmol/L (22-29); Chloride 97 mmol/L (98-107); Glucose 136 mg/dL (65-115); Magnesium 1.4 mg/dL (1.7-2.3); NT Pro B Type Natriuretic Pept 224 pg/mL (0-125); Osmolality Calculated 295 mOsm/kg (285-295); Potassium 3.7 mmol/L (3.5-5.1); Sodium 139 mmol/L (136-145); Thyroid Stimulating Hormone 3.13 uIU/mL (0.27-4.20)
--- NOTE | 2022-01-29 16:00 | P.CONIM_ITS ---
Providers/Reason For Consult Consulting Physician/Specialty*: Ravipudi/Cardiology Reason for Consult*: BRADYCARDIA WITH SECOND DEGREE AV BLOCK TYPE 2 Primary Care Provider: SOLITARIO Byrd History of Present Illness History of Present Illness Nolan Palmer is a 71 year old male who was in his usual state of health. This afternoon he was noted to be bradycardic heart rates in the 30s. EKG showed PACs as well second-degree AV block. He was referred to the emergency room. He denies any symptoms of syncope or presyncope or angina or heart failure. EKG in the emergency room confirmed second-degree AV block type II. Telemetry shows intermittent heart rates in the 30s. He is resting comfortably in bed and is asymptomatic. Review of Systems Const: Denies: fever(s) or chills Eyes: Denies: change in vision ENMT: Denies: throat pain Card: Denies: chest pain or palpitations Resp: Reports: other (Dyspnea on exertion); Denies: wheezing GI: Denies: abdominal pain, nausea or vomiting : Denies: flank pain Musc: Denies: neck pain or back pain Skin/Breast: Denies: rash or pruritus Neuro: Reports: other (Patient claims he has peripheral neuropathy from his diabetes. ); Denies: headache(s) Psych: Denies: anxiety Dylon/Lymph: Denies: enlarged lymph nodes Medications/Allergies Home Medications Medication Instructions Recorded Confirmed Last Taken Type aspirin 325 mg tablet 325 mg PO DAILY 03/27/19 01/29/22 01/29/22 History zinc gluconate 30 mg tablet 30 mg PO DAILY 08/07/21 01/29/22 01/29/22 History gabapentin 800 mg tablet 800 mg PO BID 90 days #180 tabs 09/30/21 01/29/22 01/29/22 Rx insulin aspart U-100 100 unit/mL See Rx Instructions .Route 09/30/21 01/29/22 01/29/22 Rx subcutaneous solution .COMPLEX #60 mL insulin detemir U-100 100 unit/mL See Rx Instructions .Route 09/30/21 01/29/22 01/29/22 Rx subcutaneous solution (Levemir .COMPLEX #100 mL U-100 Insulin) metformin 1,000 mg tablet 1,000 mg PO BID 90 days #180 tabs 09/30/21 01/29/22 01/29/22 Rx blood sugar diagnostic (ImmunoCellular TherapeuticsTouch #400 strips 11/10/21 01/29/22 Unknown Rx Ultra Test strips) amlodipine 10 mg tablet 10 mg PO DAILY 01/29/22 01/29/22 01/29/22 History chlorthalidone 50 mg tablet 50 mg PO DAILY 01/29/22 01/29/22 01/29/22 History gemfibrozil 600 mg tablet 600 mg PO BID 01/29/22 01/29/22 01/29/22 History lisinopril 40 mg tablet 40 mg PO BID 01/29/22 01/29/22 01/29/22 History potassium chloride 10 mEq 10 meq PO DAILY 01/29/22 01/29/22 01/29/22 History tablet,extended release rosuvastatin 20 mg tablet 20 mg PO DAILY 01/29/22 01/29/22 01/29/22 History tizanidine 4 mg tablet 8 mg PO BID PRN Pain 01/29/22 01/29/22 Unknown History Allergies Allergy/AdvReac Type Severity Reaction Status Date / Time No Known Allergies Allergy Verified 01/29/22 13:23 PFSH Acute PFSH: Medical History Essential hypertension Hyperlipidemia associated with type 2 diabetes mellitus Multiple sclerosis Myeloma Neuropathy Obesity CARMEN (obstructive sleep apnea) Family History Father CAD (coronary artery disease) Mother CAD (coronary artery disease) Hypertension Social History Smoking and tobacco status: never smoked Alcohol intake: never Adopted: No Caregiver/support person: No Lives independently: No Household members: spouse Marital status: Current occupational status: disabled Sexually active: Yes Current gender identity: Male Vitals/I&O/Wt Last Vital Signs Temp 97.6 F 01/29/22 12:43 Pulse 45 L 01/29/22 14:45 Resp 16 01/29/22 14:45 BP 188/64 01/29/22 14:45 Pulse Ox 97 01/29/22 14:45 O2 Del Method 01/29/22 13:09 Weight last 48 hrs Weight 249 lb Physical Exam Narrative: In general fully alert oriented no acute distress appears stated age well-nourished HENMT: COMMON NORMALS: normocephalic HEAD & SCALP: normocephalic Eye: COMMON NORMALS: Equal, round and reactive pupils present PUPIL: Yes Equal, round and reactive pupils present Chest: COMMONS NORMALS: normal inspection of the chest Resp: COMMON NORMALS: normal respiratory effort Cardio: RHYTHM: abnormal rhythm OTHER: Bradycardic GI: COMMON NORMALS: Normal to inspection, nondistended, normoactive bowel sounds present Back/Pelvis: OTHER: History of spinal stimulator Extremity: COMMON NORMALS: normal to inspection Data 01/29/22 13:22 01/29/22 13:22 A&P Assessment and plan (1) AV block, Mobitz 2: (2) Bradycardia, unspecified: Plan Had a discussion with the patient. His heart block does not appear to be asymptomatic at this point in time and he is resting comfortably in bed. Do not think a temporary pacer is indicated at this time. If his condition changes will address. His heart block does not appear to be due to any reversible causes. He is agreeable with recommendations to proceed with implantation of a dual-chamber pacemaker left pectoral region. We will confirm that there should not be any interference created by his spinal stimulator. We will keep him n.p.o. after midnight and based on staffing and availability of the vendors will determine whether pacemaker implant will happen on Tuesday or Tuesday. Patient accepts the periprocedural 1 to 2% risk of bleeding and infection and the 1 to 6% long-term risk of infection device malfunction with potential need for revision. Patient is aware that backup cardiothoracic surgery nephrology and vascular surgery are in [place] or [place] or [place]. Coding Level of Care Code Acute Blindmaker for [facility] Fwd Exam Detailed Diagnoses AV block, Mobitz 2 I44.1 Bradycardia, unspecified R00.1
--- NOTE | 2022-01-29 16:14 | PM.HP ---
Providers/Chief Complaint Primary Care Provider: SOLITARIO Byrd Chief Complaint: Ibraham sent for low hr History of Present Illness Nolan Palmer is a 71 year old male with past medical history of multiple sclerosis, type 2 diabetes mellitus, obesity, hypertension, sleep apnea, dyslipidemia was sent into the ER from cardiology office because of bradycardia. Apparently patient was working with physical therapy today and on completion while checking his vitals he was found to have a heart rate running in mid 30s. Patient was complaining of dizziness, lightheadedness with mild exertional shortness of breath. Denies any chest pain, dizziness, loss of consciousness. Patient states he has been having dizziness and lightheadedness along with instability in gait for over a month. In the ER he was found to have his heart rate running in mid 30s to low 40s. Blood pressure was stable. Systolic mostly over 150 mmHg. On examination patient was lying comfortably in bed without chest pain or dizziness or shortness of breath Review of Systems General: Reports: 10 or more systems reviewed and unremarkable except in HPI and below Const: Denies: fever(s), chills, body aches, change in appetite, change in weight, malaise, night sweats, diaphoresis, change in sleep pattern, daytime sleepiness or snoring Eyes: Denies: change in vision, blurry vision, photophobia, eye discomfort or eye discharge ENMT: Denies: throat pain, enlarged tonsils, hoarseness, mouth pain, oral sores, dry mouth, tinnitus, nasal congestion or post nasal drip Card: Denies: chest pain, palpitations, irregular heart rhythm, edema, swelling of feet/ankles, lightheadedness, syncope, pre-syncope, dyspnea on exertion, orthopnea, leg pain with exertion or acrocyanosis Resp: Denies: dyspnea, productive cough, non-productive cough, wheezing, stridor, pain on inspiration, change in phlegm color, hemoptysis or chest congestion GI: Denies: abdominal pain, nausea, vomiting, hematemesis, coffee ground emesis, dysphagia, heartburn, diarrhea, constipation, bloating, GI cramping, change in bowel habits, pain on defecation, hematochezia or melena : Denies: flank pain, difficulty urinating, dysuria, urinary frequency, urinary urgency, urinary hesitancy, urinary dribbling, difficulty starting urination, change in urine stream, nocturia or hematuria Musc: Denies: neck pain, back pain, extremity pain, joint pain, joint swelling, joint redness, joint stiffness or limited range of motion Neuro: Denies: headache(s), numbness in extremities, weakness in extremities, sensory changes, lack of coordination, difficulty walking, frequent falls, dizziness, vertigo, confusion, Slurred speech present, difficulty communicating thoughts or seizure-like activity Psych: Denies: anxiety, depression, mood swings, panic attacks, hopelessness or irritability Endo: Denies: polyuria, polydipsia, tired all the time, cold intolerance, excessive sweating, flushing or heat intolerance Dylon/Lymph: Denies: easy bruising or easy bleeding All/Imm: Denies: tongue swelling, facial swelling or acute wheezing Medications/Allergies Home Medications Medication Instructions Recorded Confirmed Last Taken Type aspirin 325 mg tablet 325 mg PO DAILY 03/27/19 01/29/22 01/29/22 History zinc gluconate 30 mg tablet 30 mg PO DAILY 08/07/21 01/29/22 01/29/22 History gabapentin 800 mg tablet 800 mg PO BID 90 days #180 tabs 09/30/21 01/29/22 01/29/22 Rx insulin aspart U-100 100 unit/mL See Rx Instructions .Route 09/30/21 01/29/22 01/29/22 Rx subcutaneous solution .COMPLEX #60 mL insulin detemir U-100 100 unit/mL See Rx Instructions .Route 09/30/21 01/29/22 01/29/22 Rx subcutaneous solution (Levemir .COMPLEX #100 mL U-100 Insulin) metformin 1,000 mg tablet 1,000 mg PO BID 90 days #180 tabs 09/30/21 01/29/22 01/29/22 Rx blood sugar diagnostic (OneTouch #400 strips 11/10/21 01/29/22 Unknown Rx Ultra Test strips) amlodipine 10 mg tablet 10 mg PO DAILY 01/29/22 01/29/22 01/29/22 History chlorthalidone 50 mg tablet 50 mg PO DAILY 01/29/22 01/29/22 01/29/22 History gemfibrozil 600 mg tablet 600 mg PO BID 01/29/22 01/29/22 01/29/22 History lisinopril 40 mg tablet 40 mg PO BID 01/29/22 01/29/22 01/29/22 History potassium chloride 10 mEq 10 meq PO DAILY 01/29/22 01/29/22 01/29/22 History tablet,extended release rosuvastatin 20 mg tablet 20 mg PO DAILY 01/29/22 01/29/22 01/29/22 History tizanidine 4 mg tablet 8 mg PO BID PRN Pain 01/29/22 01/29/22 Unknown History Allergies Allergy/AdvReac Type Severity Reaction Status Date / Time No Known Allergies Allergy Verified 01/29/22 13:23 PFSH Acute PFSH: Medical History (Updated 01/29/22 @ 16:22 by Jackson Browne MD) Enrolled in chronic care management Essential hypertension Hyperlipidemia associated with type 2 diabetes mellitus Multiple sclerosis Myeloma Neuropathy Obesity CARMEN (obstructive sleep apnea) Surgical History (Updated 01/29/22 @ 16:22 by Jackson Browne MD) S/P hemorrhoidectomy Family History Father CAD (coronary artery disease) Mother CAD (coronary artery disease) Hypertension Social History Smoking and tobacco status: never smoked Alcohol intake: never Adopted: No Caregiver/support person: No Lives independently: No Household members: spouse Marital status: Current occupational status: disabled Sexually active: Yes Current gender identity: Male Vitals/I&O/Wt Last Vital Signs Temp 97.6 F 01/29/22 12:43 Pulse 45 L 01/29/22 14:45 Resp 16 01/29/22 14:45 BP 188/64 01/29/22 14:45 Pulse Ox 97 01/29/22 14:45 O2 Del Method 01/29/22 13:09 Weight last 48 hrs Weight 112.945 kg Physical Exam Narrative: General: No acute distress, AO x3, on room air HEENT: PERRLA, pupils bilaterally equal and reactive Chest: Bilateral clear normal vesicular breath sounds, equal good air entry bilaterally CVS: S1-S2 regular, no murmurs, bradycardia, no gallops, no rubs Abdomen: Soft, nontender, no organomegaly, bowel sounds present, morbidly obese Neuro: No focal deficits, no facial deformity, AO x3, power 5/5 in all limbs Data 01/29/22 13:22 01/29/22 13:22 A&P Assessment and plan (1) AV block, Mobitz 2: Symptomatic. Cardiology consulted from the ER. Will appreciate recommendations. Most likely patient will need pacemaker implantation. No current need of dopamine drip or temporary pacemaker. Atropine at bedside. Continue to monitor vitals. Every shift neurochecks. Patient hemodynamically stable for now. Monitor blood pressures. Check urinalysis, urine drug screen, TSH, MRSA swab, ECHO (2) Bradycardia: (3) Type 2 diabetes mellitus without complication: Continue with home dose of 3 months lispro 30 units with meals, start on sliding scale low-dose protocol. Hold off on Lantus for now. 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: with regional intermodal truck driver use Qualified Code(s): E11.9 - Type 2 diabetes mellitus without complications; Z79.4 - snf (current) use of insulin (4) Hyperlipidemia associated with type 2 diabetes mellitus: (5) Multiple sclerosis: (6) Obesity: Qualifiers: Obesity type: due to excess calories Obesity classification: adult class 3 (BMI >= 40) Serious obesity comorbidity presence: with serious comorbidity Body mass index: BMI 40.0-44.9 Qualified Code(s): E66.01 - Morbid (severe) obesity due to excess calories; Z68.41 - Body mass index [BMI]40.0-44.9, adult (7) CARMEN (obstructive sleep apnea): Home use of CPAP. Plan Hypertension: Goal blood pressure less than 140/90 on Hg. Continue with home dose of amlodipine, chlorthalidone, lisinopril. Monitor BMP. Monitor blood pressures with goal of less than 140/90. Continue other chronic medications including gabapentin, tizanidine. CODE STATUS: Discussed in detail with the patient. Full code. is his DPOA. Famotidine for PUD prophylaxis SCDs for DVT prophylaxis Cardiac carb consistent diet, n.p.o. after midnight Attestations Medical Necessity Statement*: Admission for more than 2 midnights for management of significant symptomatic bradycardia with Mobitz 2 Critical Care Time: The high probability of a clinically significant, sudden or life threatening deterioration of the patient's [cardiac] system(s) required my full and direct attention, intervention and personal management. The critical care time is as shown. 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
--- NOTE | 2022-01-29 16:16 | USCV_ITS ---
Nolan Palmer Age: 71 Gender: M : 1950 Exam Date: 01/29/2022 16:45 Ordering Phys: Jackson Browne MD Technologist: BELLA Exam Location: [facility] [place] Indication: symptomatic bradycardia BP: 182 / 78 HR: 40 Rhythm: Sinus Technical Quality: Adequate MEASUREMENTS (Male / Female) Normal Values 2D ECHO LV Diastolic Diameter PLAX 4.8 cm 4.2 - 5.9 / 3.9 - 5.3 cm LV Systolic Diameter PLAX 3.3 cm IVS Diastolic Thickness 0.8 cm 0.6 - 1.0 / 0.6 - 0.9 cm IVS Systolic Thickness 1.2 cm LVPW Diastolic Thickness 0.8 cm 0.6 - 1.0 / 0.6 - 0.9 cm LVPW Systolic Thickness 1.2 cm LVOT Diameter 2.0 cm LV Ejection Fraction 2D Teich 59.5 % LV Ejection Fraction MOD 2C 58.6 % LV Ejection Fraction 2C AL 58.1 % LA Diameter 3.5 cm IVC Diameter 2.4 cm M-MODE Aortic Annulus Diameter 2.9 cm LA Ao Ratio MM 1.2 MV E Point Septal Separation 0.3 cm DOPPLER AV Peak Velocity 149.0 cm/s LVOT Peak Velocity 111.0 cm/s AV Area Cont Eq vti 2.3 cm squared AV Area Cont Eq pk 2.4 cm squared MV Area PHT 3.9 cm squared Mitral E to A Ratio 1.3 MV E' Velocity 56.5 cm/s Mitral E to MV E' Ratio 12.4 Mitral E to LV E' Lateral Ratio 10.6 Mitral E to LV E' Septal Ratio 14.9 TR Peak Velocity 275.0 cm/s TR Peak Gradient 30.3 mmHg TV Peak E Velocity 95.0 cm/s Right Atrial Pressure 6.0 mmHg Pulmonary Artery Systolic Pressu 36.3 mmHg PV Peak Velocity 84.0 cm/s FINDINGS Left Ventricle Normal left ventricular size, systolic function and wall thickness, with no regional wall motion abnormalities. Normal left ventricular wall thickness. Grade I/IV diastolic dysfunction (abnormal relaxation filling pattern), normal to mildly elevated filling pressures. Right Ventricle The right ventricle is normal in size and function. Mild pulmonary hypertension. RVSP 43 mm Hg. Right Atrium The right atrium is normal in size. Left Atrium The left atrium is normal in size. Mitral Valve Structurally normal mitral valve without significant stenosis or prolapse. Trace mitral valve regurgitation. Aortic Valve Structurally normal aortic valve without significant sclerosis or stenosis. There is no aortic regurgitation. Tricuspid Valve Structurally normal tricuspid valve without significant stenosis or regurgitation. Pulmonary artery systolic pressure is normal. Pulmonic Valve Structurally normal pulmonic valve without significant stenosis. There is no pulmonic regurgitation. Pericardium Normal pericardium without effusion. Aorta Mildly dilated ascending aorta. IVC Moderately dilated IVC. CONCLUSIONS Normal left ventricular size, systolic function and wall thickness, with no regional wall motion abnormalities. Normal left ventricular wall thickness. Grade I/IV diastolic dysfunction (abnormal relaxation filling pattern), normal to mildly elevated filling pressures. The right ventricle is normal in size and function. Mild pulmonary hypertension. RVSP 43 mm Hg. Structurally normal mitral valve without significant stenosis or prolapse. Trace mitral valve regurgitation. Mildly dilated ascending aorta. Moderately dilated IVC. Simón Robles MD (Electronically Signed) Final Date: 31 January 2022 11:59 S
[2022-01-29 16:49] LABS: Troponin 5 2HR 21.19 ng/L (0-15); Troponin 5 2HR Delta -4.81 ABS# (0-10)
--- NOTE | 2022-01-29 17:05 | PC.NURSE ---
Pt report called to Kiko DANIEL for room 10
[2022-01-29 17:11] LABS: INR 0.91 (0.8-1.2)
--- NOTE | 2022-01-29 18:17 | PC.NURSE ---
ICU at 1805, AA0x4, HR 40, asymptomatic, 97% RA, 19RR, BP elevated and not taking automatically at this time. Will repeat.
[2022-01-29 18:46] LABS: Thyroid Stimulating Hormone 3.07 uIU/mL (0.27-4.20)
[2022-01-29 18:49] LABS: Folate Level > 20.0 ng/mL (4.5-32.2)
[2022-01-29 18:56] LABS: NT Pro B Type Natriuretic Pept 223 pg/mL (0-125); Procalcitonin 0.06 ng/mL (0-0.5); Vitamin B12 388 pg/mL (232-1245)
[2022-01-29 19:07] LABS: Glucose Point of Care 120 mg/dL (70-110)
[2022-01-29] MEDS: lisinopril 20 mg Tablet 40 MG PO (19:25)
[2022-01-29] MEDS: famotidine 20 mg/2 mL INJ IVP (19:25)
[2022-01-29] MEDS: docusate sodium 100 mg Capsule PO (19:25)
[2022-01-29] MEDS: gemfibrozil 600 mg Tablet PO (19:42)
[2022-01-29 20:19] LABS: Amphetamines Screen Urine Negative (Negative); Barbiturates Screen Urine Negative (Negative); Benzodiazepines Screen Urine Negative (Negative); Cocaine Screen Urine Negative (Negative); Opiate Screen Urine Negative (Negative); PCP Screen Urine Negative (Negative); THC Screen Urine Negative (Negative)
[2022-01-29 20:22] LABS: Iron 56 ug/dL (59-158); Percent Saturation 13.8 % (20-50); Total Iron Binding Capacity 404 mcg/dl; Unsaturated Iron Binding 348 ug/dL (112-347)
[2022-01-29 20:24] LABS: Troponin 5 6HR 21.88 ng/L (0-15)
[2022-01-29 20:25] LABS: Troponin 5 6HR Delta -4.12 ng/L (0-12)
[2022-01-29 21:27] LABS: Glucose Point of Care 155 mg/dL (70-110)
[2022-01-29] MEDS: insulin lispro 100 unit/1 mL SUBCUT (21:28)
[2022-01-29 21:37] LABS: Add Urine Microscopic? YES; Bilirubin Urine Neg (Negative); Blood Urine Neg (Negative); Glucose Urine UA Norm (Normal); Ketones Urine Negative (Negative); Leukocyte Esterase Urine Negative (Negative); Nitrate Urine Negative (Negative); Protein Urine 1+ (Negative); Urine Appearance Clear (CLEAR); Urine Color Yellow (Yellow); Urobilinogen Urine Neg (Negative); pH Urine 7 (5-7)
[2022-01-29 21:38] LABS: Add Urine Culture? No; RBC Urine 0-4 /hpf (0-2)
--- NOTE | 2022-01-29 23:12 | ECG_ITS ---
[facility] Test Date: 2022-01-29 Pat Name: Nolan Palmer Department: Room: ICU10 Gender: Male Acquisition Manager: : 1950 Requested By: Addy Castrejon Order Number: [id number] Juan José MD: Jakob Dodd M.D. Measurements Intervals [place] Rate: 33 P: 0 NE: 0 QRS: -22 QRSD: 95 T: 44 QT: 439 QTc: 328 Interpretive Statements SINUS BRADYCARDIA WITH 2ND DEGREE AV BLOCK, 2:1 OR MOBITZ TYPE II BORDERLINE LEFT AXIS DEVIATION [QRS AXIS < -20] MODERATE VOLTAGE CRITERIA FOR LVH, CONSIDER NORMAL VARIANT [MEETS CRITERIA IN ONE OF: R(aVL), S(V1), R(V5), R(V5/V6)+S(V1)] CRITICAL TEST RESULT Compared to ECG 01/29/2022 15:22:51 No significant changes Electronically Signed On 01-29-2022 23:52:06 COUNTRY MANAGER by Jakob Dodd M.D. [id number]
[2022-01-30] VITALS (15 sets, daily range): BP systolic 97–181; BP diastolic 57–96; PULSE 47–67; RESP 16–24; TEMP 36.6–36.9; O2SAT 91–95
[2022-01-30] MEDS: hyDRALAzine 20 mg/mL INJ 1 mL 10 MG IVP (00:56)
[2022-01-30 01:57] LABS: Glucose Point of Care 123 mg/dL (70-110)
[2022-01-30] MEDS: famotidine 20 mg/2 mL INJ IVP ×2 (04:20→16:35)
[2022-01-30 05:19] LABS: Basophils # 0.1 10^3/uL (0.0-0.1); Eosinophils # 0.2 10^3/uL (0.0-0.8); Hematocrit 50.1 % (42.0-52.0); Hemoglobin 16.4 g/dL (11.7-16.6); Lymphocytes # 1.9 10^3/uL (0.8-4.8); Mean Corpuscular HGB Conc 32.7 g/dL (30.0-36.0); Mean Corpuscular Volume 91.8 fl (80-94); Mean Platelet Volume 10.7 fL (7.4-10.4); Monocytes # 0.6 10^3/uL (0.2-0.9); Monocytes % 7.2 %; Neutrophils # 5.37 10^3/uL (1.8-7.7); Neutrophils % 66.6 %; Nucleated Red Blood Cells % 0 %; Platelet Count 201 10^3/cmm (130-400); Red Blood Count 5.46 10^6/uL (4.1-5.3); Red Cell Distribution Width 14.1 % (12.1-15.1); White Blood Count 8.1 10^3/uL (4.0-10.0)
[2022-01-30 05:48] LABS: Alanine Aminotransferase 10 U/L (0-41); Albumin Level 4.3 g/dL (3.5-5.2); Alkaline Phosphatase 84 U/L (40-130); Blood Urea Nitrogen 20 mg/dL (8-23); Calcium 10.5 mg/dL (8.5-10.5); Carbon Dioxide 28 mmol/L (22-29); Chloride 98 mmol/L (98-107); Chol HDL Ratio 4.72 mg/dL (1.0-5.00); Cholesterol 217 mg/dL (0-200); Globulin 3.7 g/dL (1.3-4.6); Glucose 141 mg/dL (65-115); HDL Cholesterol 46 mg/dL (60-100); LDL Cholesterol Calculated 143 mg/dL (50-129); Magnesium 1.3 mg/dL (1.7-2.3); Osmolality Calculated 295 mOsm/kg (285-295); Phosphorus 3.3 mg/dL (2.5-4.5); Sodium 140 mmol/L (136-145); Total Bilirubin 0.5 mg/dL (0.15-1.2); Triglycerides 142 mg/dL (0-150); VLDL Cholestrol Calculation 28 mg/dL (0-30)
[2022-01-30 05:51] LABS: Anion Gap 17.8 (5-19); Aspartate Amino Transferase 42 U/L (0-40); Potassium 3.8 mmol/L (3.5-5.1)
[2022-01-30 05:52] LABS: Estmated Average Glucose 126
--- NOTE | 2022-01-30 07:00 | PC.NURSE ---
bedside report received from Kaitlin DANIEL.
[2022-01-30 08:06] LABS: Glucose Point of Care 139 mg/dL (70-110)
[2022-01-30] MEDS: gabapentin 400 mg Capsule 800 MG PO ×2 (09:44→18:33)
[2022-01-30] MEDS: lisinopril 20 mg Tablet 40 MG PO ×2 (09:45→18:34)
[2022-01-30] MEDS: docusate sodium 100 mg Capsule PO ×2 (09:45→18:33)
[2022-01-30] MEDS: amlodipine 10 mg Tablet PO (09:45)
[2022-01-30] MEDS: gemfibrozil 600 mg Tablet PO ×2 (09:46→18:33)
[2022-01-30] MEDS: chlorthalidone 25 mg Tablet 50 MG PO (09:46)
--- NOTE | 2022-01-30 10:30 | PC.NURSE ---
Chlorhexidine bath given
[2022-01-30 11:10] LABS: Glucose Point of Care 126 mg/dL (70-110)
--- NOTE | 2022-01-30 12:54 | PC.NURSE ---
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
--- NOTE | 2022-01-30 14:00 | PM.OP ---
Operative Report Date of procedure: January 30, 2022 Post-op diagnosis: Secondary heart block type II heart rates in the 30s Post-op findings: Successful permanent pacemaker implant, dual-chamber MRI conditional Medtronic device Procedure done: Dual-chamber pacer implant Implants: INDICATIONS: 1. Second degree AVB type 2. (ICD 10: I44.1) PROCEDURES PERFORMED: 1. Physician directed delivery of moderate conscious sedation with administration of IV Versed and IV Fentanyl with physician directed dedicated/trained/credentialed one on one nursing monitoring of conscious, respiratory, hemodynamic state from 14:00 to 15:00 pm (60 min). (CPT 69462 x 1, 70166 x 3) 2. Insertion of dual-chamber pacemaker in left subpectoral region with the assistance of fluoroscopic guidance and left upper extremity venogram. (CPT 04978 + 94499) FINDINGS: ? MRI Conditional dual-chamber pacemaker pulse generator information. o Medtronic Shilpa XT DR MRI Model W1DR01 Serial [id number]. o Implant date, January 30, 2022 o Location, left pectoral region, sub fascial. o Pacing mode, DDDR. o Lower rate 60. o Upper rate 130. o Programmed sensitivity, right atrium 0.45 mV, right ventricle 0.9 mV. o Programmed output, right atrium and right ventricle 2.5 V at 0.4 milliseconds. ? MRI Conditional right atrial pace sense lead information. o Medtronic Model 5076-52 Serial [id number]. o Implant date, January 30, 2022. o Location, right atrial appendage. o Lead type, active fixation extendable retractable helix, bipolar. o P-waves, 4.25 mV. o Threshold, 0.625 V at 0.4 milliseconds. o Impedance, 779 ohms. o No diaphragmatic stimulation at 10 V output. ? MRI Conditional right ventricular pace sense lead information. o Medtronic Model 5076-58 Serial [id number]. o Implant date, January 30, 2022 o Location, RV apex. o Lead type, active fixation extendable retractable helix, bipolar. o R-waves, 10.25 mV. o Threshold, 0.625 V at 0.4 milliseconds. o Impedance, 665 ohms. o No diaphragmatic stimulation at 10 V output. IMPRESSION: 1. Successful insertion of MRI Conditional dual-chamber pacemaker, left pectoral region, subfascial with the assistance of fluoroscopic guidance and left upper extremity venogram. RECOMMENDATIONS: 1. Monitor postprocedurally. Plan is for possible discharge in AM. 2. EKG now. Chest x-ray in AM. 3. Wound care instructions and activity limitations will be provided to the patient and family. 4. Incision check next week. 5. Full clinic visit and device interrogation in 4 months. 6. Consider non invasive ischemia work up. 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 Surgeon: Travis Estimated blood loss: <50 cc Complications: None Procedure: See above
--- NOTE | 2022-01-30 14:34 | PM.PN ---
Subjective Subjective: No acute events overnight. Patient has remained hemodynamically stable and afebrile. Heart rates have been running in low 40s to 50s. Denies of any dizziness, nausea vomiting, headache. Plan for pacemaker implantation today. Vitals/I&O/Wt Last Vital Signs Temp 98.4 F 01/30/22 10:29 Pulse 52 L 01/30/22 12:00 Resp 17 01/30/22 12:00 BP 97/78 01/30/22 12:00 Pulse Ox 92 01/30/22 12:00 O2 Del Method 01/30/22 12:00 01/29/22 01/30/22 01/30/22 22:59 06:59 14:59 Intake Total 250 / 250 350 / 600 Output Total 300 / 300 1500 / 1800 540 / 540 Balance -50 / -50 -1150 / -1200 -540 / -540 Weight last 48 hrs Weight 112.309 kg Weight 112.945 kg Physical Exam Narrative: General: No acute distress, AO x3, on room air HEENT: PERRLA, pupils bilaterally equal and reactive Chest: Bilateral clear normal vesicular breath sounds, equal good air entry bilaterally CVS: S1-S2 regular, no murmurs, bradycardia, no gallops, no rubs Abdomen: Soft, nontender, no organomegaly, bowel sounds present, morbidly obese Neuro: No focal deficits, no facial deformity, AO x3, power 5/5 in all limbs Data 01/30/22 04:57 01/30/22 04:57 Micro: Microbiology 01/29/22 19:45 MRSA Culture - Final Nose A&P Assessment and plan (1) AV block, Mobitz 2: Symptomatic. Plan for pacemaker implantation today. Appreciate cardiology recommendations. TSH within normal limits. Echocardiogram done but not reported. (2) Bradycardia: (3) Type 2 diabetes mellitus without complication: Blood sugar is low now. Patient is NPO. Continue with insulin sliding scale. Hold off on home dose of lispro 30 units 3 times daily while patient is NPO. Hold off on Lantus for now. 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 insulin use: with halfway use Qualified Code(s): E11.9 - Type 2 diabetes mellitus without complications; Z79.4 - [facility] (current) use of insulin (4) Hyperlipidemia associated with type 2 diabetes mellitus: (5) Multiple sclerosis: (6) Obesity: Qualifiers: Obesity type: due to excess calories Obesity classification: adult class 3 (BMI >= 40) Serious obesity comorbidity presence: with serious comorbidity Body mass index: BMI 40.0-44.9 Qualified Code(s): E66.01 - Morbid (severe) obesity due to excess calories; Z68.41 - Body mass index [BMI]40.0-44.9, adult (7) CARMEN (obstructive sleep apnea): Home use of CPAP. Plan Hypertension: Goal blood pressure less than 140/90 mmHg. Continue with home dose of amlodipine, chlorthalidone, lisinopril. Monitor BMP. For now till the patient has bradycardia we will continue with permissible hypertension. Continue other chronic medications including gabapentin, tizanidine. CODE STATUS: Discussed in detail with the patient. Full code. is his DPOA. Famotidine for PUD prophylaxis SCDs for DVT prophylaxis N.p.o. for now. Carb consistent cardiac diet post pacemaker implantation. Attestations Medical Necessity Statement*: Requires further hospitalization for management of symptomatic bradycardia, Mobitz type II AV block requiring pacemaker implantation Critical Care Time: The high probability of a clinically significant, sudden or life threatening deterioration of the patient's [cardiac] system(s) required my full and direct attention, intervention and personal management. The critical care time is as shown. This time is in addition to time spent performing any reported procedures but includes the following: [x] Data and vital sign review and interpretation [x] Patient assessment, examination and intervention [x] Documentation [x] Medication orders and management Critical Care Time (min): 40 Coding Level of Care Code Acute Ammunition Specialist for [facility] Fwd Diagnoses AV block, Mobitz 2 I44.1 Bradycardia R00.1 Type 2 diabetes mellitus without complication E11.9; Z79.4 Diabetes mellitus termite helper insulin use: with halfway use Hyperlipidemia associated with type 2 diabetes mellitus E11.69; E78.5 Multiple sclerosis G35 Obesity E66.01; Z68.41 Obesity type: due to excess calories Obesity classification: adult class 3 (BMI >= 40) Serious obesity comorbidity presence: with serious comorbidity Body mass index: BMI 40.0-44.9 CARMEN (obstructive sleep apnea) G47.33
--- NOTE | 2022-01-30 15:47 | PC.NURSE ---
Report given to Mandi DANIEL.
[2022-01-30 16:43] LABS: Glucose Point of Care 122 mg/dL (70-110)
[2022-01-30 21:12] LABS: Glucose Point of Care 180 mg/dL (70-110)
[2022-01-30] MEDS: insulin lispro 100 unit/1 mL SUBCUT (21:19)
[2022-01-31] VITALS (17 sets, daily range): BP systolic 139–216; BP diastolic 64–107; PULSE 62–86; RESP 15–22; TEMP 37–37.2; O2SAT 93–95
[2022-01-31] MEDS: hyDRALAzine 20 mg/mL INJ 1 mL 10 MG IVP (03:04)
[2022-01-31] MEDS: famotidine 20 mg/2 mL INJ IVP (04:26)
[2022-01-31 05:32] LABS: Anion Gap 16.1 (5-19); Blood Urea Nitrogen 16 mg/dL (8-23); Calcium 9.7 mg/dL (8.5-10.5); Carbon Dioxide 29 mmol/L (22-29); Chloride 95 mmol/L (98-107); Glucose 142 mg/dL (65-115); Magnesium 1.2 mg/dL (1.7-2.3); Osmolality Calculated 288 mOsm/kg (285-295); Potassium 3.1 mmol/L (3.5-5.1); Sodium 137 mmol/L (136-145)
--- NOTE | 2022-01-31 06:00 | XRR_ITS ---
PROCEDURE INFORMATION: Exam: XR Chest Exam date and time: 01/31/2022 5:45 AM Age: 71 years old Clinical indication: Device placement; Cardiac pacemaker placement or adjustment; Additional info: Post permanent pacemaker placement; Visualize lead tip TECHNIQUE: Imaging protocol: Radiologic exam of the chest. Views: 1 view. Total images: 2 COMPARISON: CR XR chest 1V portable [id number] 01/29/2022 1:06 PM FINDINGS: Tubes, catheters and devices: A pacemaker device is present, its leads in appropriate position. Intraspinal nerve stimulator electrodes noted. This finding is stable when compared to the prior exam. Lungs: Unremarkable. No consolidation. Pleural spaces: No pneumothorax. Heart/Mediastinum: Unremarkable. No cardiomegaly. Bones/joints: Unremarkable. XR/XR chest 1V [id number] IMPRESSION: 1. A pacemaker device is present, its leads in appropriate position. 2. No pneumothorax. 3. No acute cardiopulmonary process.
--- NOTE | 2022-01-31 06:20 | ECG_ITS ---
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
[2022-01-31 06:43] LABS: Glucose Point of Care 138 mg/dL (70-110)
[2022-01-31] MEDS: gabapentin 400 mg Capsule 800 MG PO (09:45)
[2022-01-31] MEDS: chlorthalidone 25 mg Tablet 50 MG PO (09:45)
[2022-01-31] MEDS: docusate sodium 100 mg Capsule PO (09:45)
[2022-01-31] MEDS: lisinopril 20 mg Tablet 40 MG PO (09:45)
[2022-01-31] MEDS: gemfibrozil 600 mg Tablet PO (09:46)
[2022-01-31] MEDS: aspirin 81 mg EC Tablet PO (09:46)
[2022-01-31] MEDS: carvedilol 6.25 mg Tablet PO (09:46)
[2022-01-31] MEDS: amlodipine 10 mg Tablet PO (09:46)
[2022-01-31] MEDS: magnesium sulfate premix 2 GM/50 ML PIGGYBACK IV (09:49)
[2022-01-31] MEDS: potassium chloride ER 20 mEq Tablet 80 MEQ PO (09:49)
--- NOTE | 2022-01-31 10:35 | PM.DCS ---
Discharge Providers Date of Admission: 01/29/22 17:30 Date of Discharge: January 31, 2022 Attending Provider at Admission: Jackson Browne MD Attending Provider at Discharge: Jackson Browne MD Consults: Cardiology: Dr. 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 Qualified Code(s): E11.9 - Type 2 diabetes mellitus without complications; Z79.4 - assisted (current) use of insulin (4) Hyperlipidemia associated with type 2 diabetes mellitus: Status: Acute (5) Multiple sclerosis: Status: Acute (6) Obesity: Status: Acute Qualifiers: Body mass index: BMI 40.0-44.9 Obesity classification: adult class 3 (BMI >= 40) Obesity type: due to excess calories Serious obesity comorbidity presence: with serious comorbidity Qualified Code(s): E66.01 - Morbid (severe) obesity due to excess calories; Z68.41 - Body mass index [BMI]40.0-44.9, adult (7) CARMEN (obstructive sleep apnea): Status: Acute Reason for Visit Reason for Visit: Ibraham sent for low hr Physical Exam Narrative: General: No acute distress, AO x3, on room air HEENT: PERRLA, pupils bilaterally equal and reactive Chest: Bilateral clear normal vesicular breath sounds, equal good air entry bilaterally CVS: S1-S2 regular, no murmurs, bradycardia, no gallops, no rubs Abdomen: Soft, nontender, no organomegaly, bowel sounds present, morbidly obese Neuro: No focal deficits, no facial deformity, AO x3, power 5/5 in all limbs Discharge Data Studies Completed and Pending Completed Studies During Hospitalization Category Date Time Status PARACHUTE INSPECTOR request for service Routine Exams 01/30/22 12:29 Completed XR chest 1V [id number] Routine Exams 01/31/22 06:00 Completed XR chest 1V portable [id number] Stat Exams 01/29/22 13:01 Completed Pending at discharge Category Date Time Status CV. echo complete* [id number] Routine Ultrasound 01/29/22 16:16 Taken Radiology Impressions Chest X-Ray 01/31/22 06:00 IMPRESSION: 1. A pacemaker device is present, its leads in appropriate position. 2. No pneumothorax. 3. No acute cardiopulmonary process. Laboratory Results WBC 8.1 10^3/uL (4.0-10.0) 01/30/22 04:57 RBC 5.46 10^6/uL (4.1-5.3) H 01/30/22 04:57 Hgb 16.4 g/dL (11.7-16.6) 01/30/22 04:57 Hct 50.1 % (42.0-52.0) 01/30/22 04:57 MCV 91.8 fl (80-94) 01/30/22 04:57 MCH 30.0 pg (28.0-34.0) 01/30/22 04:57 MCHC 32.7 g/dL (30.0-36.0) 01/30/22 04:57 RDW 14.1 % (12.1-15.1) 01/30/22 04:57 Plt Count 201 10^3/cmm (130-400) 01/30/22 04:57 MPV 10.7 fL (7.4-10.4) H 01/30/22 04:57 Neut % (Auto) 66.6 % 01/30/22 04:57 Lymph % (Auto) 23.0 % 01/30/22 04:57 [place] % (Auto) 7.2 % 01/30/22 04:57 Eos % (Auto) 2.0 % 01/30/22 04:57 Baso % (Auto) 1.0 % 01/30/22 04:57 Neut # (Auto) 5.37 10^3/uL (1.8-7.7) 01/30/22 04:57 Lymph # (Auto) 1.9 10^3/uL (0.8-4.8) 01/30/22 04:57 [place] # (Auto) 0.6 10^3/uL (0.2-0.9) 01/30/22 04:57 Eos # (Auto) 0.2 10^3/uL (0.0-0.8) 01/30/22 04:57 Baso # (Auto) 0.1 10^3/uL (0.0-0.1) 01/30/22 04:57 Nucleated RBC % (auto) 0 % 01/30/22 04:57 Nucleated RBCs # 0.0 /100WBC 01/30/22 04:57 PT 12.50 SECONDS (12.1-14.9) 01/29/22 13:22 INR 0.91 (0.8-1.2) 01/29/22 13:22 APTT 28.4 SECONDS (23.9-36.7) 01/29/22 13:22 Sodium 137 mmol/L (136-145) 01/31/22 04:44 Potassium 3.1 mmol/L (3.5-5.1) L 01/31/22 04:44 Chloride 95 mmol/L (98-107) L 01/31/22 04:44 Carbon Dioxide 29 mmol/L (22-29) 01/31/22 04:44 Anion Gap 16.1 (5-19) 01/31/22 04:44 BUN 16 mg/dL (8-23) 01/31/22 04:44 Creatinine 1.1 mg/dL (0.7-1.2) 01/31/22 04:44 GFR Calculation Not Reportable 01/31/22 04:44 Glucose 142 mg/dL (65-115) H 01/31/22 04:44 POC Glucose 138 mg/dL (70-110) H 01/31/22 06:31 Estimat Average Glucose 126 01/30/22 04:57 Hemoglobin A1c 6.0 % (4.0-6.0) 01/30/22 04:57 Calculated Osmolality 288 mOsm/kg (285-295) 01/31/22 04:44 Calcium 9.7 mg/dL (8.5-10.5) 01/31/22 04:44 Phosphorus 3.3 mg/dL (2.5-4.5) 01/30/22 04:57 Magnesium 1.2 mg/dL (1.7-2.3) L 01/31/22 04:44 Iron 56 ug/dL (59-158) L 01/29/22 19:45 TIBC 404 mcg/dl 01/29/22 19:45 % Saturation 13.8 % (20-50) L 01/29/22 19:45 Unsat Iron Binding 348 ug/dL (112-347) H 01/29/22 19:45 Total Bilirubin 0.5 mg/dL (0.15-1.2) 01/30/22 04:57 AST 42 U/L (0-40) H 01/30/22 04:57 ALT 10 U/L (0-41) 01/30/22 04:57 Alkaline Phosphatase 84 U/L (40-130) 01/30/22 04:57 Troponin T Baseline 26 ng/L (0-15) H 01/29/22 13:22 Troponin T 120 Minute 21.19 ng/L (0-15) H 01/29/22 16:00 Delta Troponin T -4.81 ABS# (0-10) L 01/29/22 16:00 Troponin T Hi Sens 6Hr 21.88 ng/L (0-15) H 01/29/22 19:45 Troponin T Hi Sens 6Hr Delta -4.12 ng/L (0-12) L 01/29/22 19:45 NT-Pro-B Natriuret Pep 223 pg/mL (0-125) H 01/29/22 13:22 NT-Pro-B Natriuret Pep 224 pg/mL (0-125) H 01/29/22 13:22 Total Protein 8.0 g/dL (6.6-8.7) 01/30/22 04:57 Albumin 4.3 g/dL (3.5-5.2) 01/30/22 04:57 Globulin 3.7 g/dL (1.3-4.6) 01/30/22 04:57 Triglycerides 142 mg/dL (0-150) 01/30/22 04:57 Cholesterol 217 mg/dL (0-200) H 01/30/22 04:57 LDL Cholesterol, Calc 143 mg/dL (50-129) H 01/30/22 04:57 Total VLDL Cholesterol 28 mg/dL (0-30) 01/30/22 04:57 HDL Cholesterol 46 mg/dL (60-100) L 01/30/22 04:57 Cholesterol/HDL Ratio 4.72 mg/dL (1.0-5.00) 01/30/22 04:57 Vitamin B12 388 pg/mL (232-1245) 01/29/22 13:22 Folate > 20.0 ng/mL (4.5-32.2) 01/29/22 13:22 Procalcitonin 0.06 ng/mL (0-0.5) 01/29/22 13:22 TSH 3.07 uIU/mL (0.27-4.20) 01/29/22 13:22 TSH 3.13 uIU/mL (0.27-4.20) 01/29/22 13:22 Urine Color Yellow (Yellow) 01/29/22 19:45 Urine Appearance Clear (CLEAR) 01/29/22 19:45 Urine pH 7 (5-7) 01/29/22 19:45 Ur Specific [place] 1.010 (1.005-1.030) 01/29/22 19:45 Urine Protein 1+ (Negative) H 01/29/22 19:45 Urine Glucose (UA) Norm (Normal) 01/29/22 19:45 Urine Ketones Negative (Negative) 01/29/22 19:45 Urine Blood Neg (Negative) 01/29/22 19:45 Urine Nitrate Negative (Negative) 01/29/22 19:45 Urine Bilirubin Neg (Negative) 01/29/22 19:45 Urine Urobilinogen Neg mg/dL (Negative) 01/29/22 19:45 Ur Leukocyte Esterase Negative (Negative) 01/29/22 19:45 Urine RBC 0-4 /hpf (0-2) H 01/29/22 19:45 Urine WBC None /hpf (0-5) 01/29/22 19:45 Ur Squamous Epith Cells None /hpf (0-5) 01/29/22 19:45 Amorphous Sediment Not Reportable 01/29/22 19:45 Urine Bacteria None /hpf (NONE) 01/29/22 19:45 Urine Opiates Screen Negative ng/mL (Negative) 01/29/22 19:45 Ur Barbiturates Screen Negative ng/mL (Negative) 01/29/22 19:45 Ur Phencyclidine Scrn Negative ng/mL (Negative) 01/29/22 19:45 Ur Amphetamines Screen Negative ng/mL (Negative) 01/29/22 19:45 U Benzodiazepines Scrn Negative ng/mL (Negative) 01/29/22 19:45 Urine Cocaine Screen Negative ng/mL (Negative) 01/29/22 19:45 U Marijuana (THC) Screen Negative ng/mL (Negative) 01/29/22 19:45 Vitals Last Vital Signs Temp 98.8 F 12/18/22 07:04 Pulse 74 01/31/22 07:42 Resp 22 H 01/31/22 07:42 BP 162/80 01/31/22 07:42 Pulse Ox 93 01/31/22 07:42 O2 Del Method 01/30/22 20:00 Discharge Plan Discharge Patient Disposition: Home Condition: Stable Prescriptions: New carvedilol 6.25 mg Tablet 6.25 mg PO BID 30 Days Qty: 60 0RF cephalexin 500 mg capsule 500 mg PO Q6H 7 Days Qty: 28 0RF Continued zinc gluconate 30 mg tablet 30 mg PO DAILY aspirin 325 mg tablet 325 mg PO DAILY gabapentin 800 mg tablet 800 mg PO BID 90 Days Qty: 180 1RF metformin 1,000 mg tablet 1,000 mg PO BID 90 Days Qty: 180 3RF Levemir U-100 Insulin 100 unit/mL solution See Rx Instructions .ROUTE .COMPLEX Qty: 100 3RF Dose Instruction: INJECT 1 MILLILITER SUBCUTANEOUSLY DAILY Rx Instructions: INJECT 1 MILLILITER SUBCUTANEOUSLY QPM give pt 6 vials this last him 3 months. lisinopril 40 mg tablet 40 mg PO BID (DME) OneTouch Ultra Test Strip See Rx Instructions .ROUTE .COMPLEX Qty: 400 0RF Dose Instruction: USE TO TEST BLOOD SUGAR FIVE TIMES DAILY Rx Instructions: USE TO TEST BLOOD SUGAR FIVE TIMES DAILY tizanidine 4 mg tablet 8 mg PO BID PRN (Reason: Pain) potassium chloride 10 mEq tablet extended release 10 meq PO DAILY chlorthalidone 50 mg tablet 50 mg PO DAILY amlodipine 10 mg tablet 10 mg PO DAILY gemfibrozil 600 mg tablet 600 mg PO BID rosuvastatin 20 mg tablet 20 mg PO DAILY Changed insulin aspart U-100 100 unit/mL solution See Rx Instructions .ROUTE .COMPLEX Qty: 60 1RF Dose Instruction: INJECT 30 UNITS UNDER THE SKIN UP TO THREE TIMES DAILY WITH MEALS Rx Instructions: INJECT 3 UNITS UNDER THE SKIN UP TO THREE TIMES DAILY WITH MEALS Discharge Orders: Discharge Order (Routine); Ordered 01/31/22 Ordered By: Jackson Browne Referrals: Maged Bustamante FNP [Primary Care Provider] - 7-10 days La Albarran FNP [Nurse Practitioner] - 4-7 days Discharge Diet: Cardiac and Diabetic Discharge Activity: Resume usual activity and Increase activity as tolerated Patient Instructions: Opioid Safety, Pacemaker (DC), Pacemaker (GEN), Post Pacemaker - Zan Activity Restrictions/Additional Instructions: Please follow-up with La Albarran/cardiology nurse practitioner within next 1 week for post pacemaker check.. You will be on cephalexin 4 times a day for next 7 days. Coreg has been added to your medication list. Take Coreg 6.25 mg twice daily. Monitor your blood pressure daily and maintain a BP chart and follow-up with a primary care provider within next 1 week for further adjustment of antihypertensives. Continue taking your antidiabetic medications as before. Discharge Attestations Time Spent in Discharge Care*: greater than 30 min Specific Discharge Activities: educating patient, discussing with pcp/other providers, discussing with case repairer/social workers/dc planners, documenting/other paperwork and evaluating patient/reviewing data Status at Discharge: Cognitive status at discharge: cognitively intact, Behavioral status at discharge: cooperative, Functional status at discharge: independent ambulation, Overall status at discharge: patient is progressing back to baseline Quality Metrics Clinical Quality Measures [ No reported AMI, CVA or VTE this stay] Coding Level of Care Code Acute Chg FW DC note Diagnoses AV block, Mobitz 2 I44.1 Bradycardia R00.1 Type 2 diabetes mellitus without complication E11.9; Z79.4 Diabetes mellitus custodial insulin use: with truck 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
[2022-01-31 11:32] LABS: Glucose Point of Care 220 mg/dL (70-110)
[2022-01-31] MEDS: insulin lispro 100 unit/1 mL SUBCUT (12:47)
== END 2022-01-31 13:30 | disposition home or self-care (01) | DRG 243 ==
LOC: ER 16:10 → ICU 17:31 → CSU 01-30 14:27
PROVIDERS: Internal Medicine; Internal Medicine Cardiovascular Disease; Admitting Provider Student in an Organized Health Care Education/Training Program; Emergency Provider Family Medicine; PCP Registered Nurse; Visit Provider Student in an Organized Health Care Education/Training Program
PROC: 0JH606Z Insertion of Pacemaker, Dual Chamber into Chest Subcutaneous Tissue and Fascia, Open Approach (ICD-10-PCS; principal; 2022-01-30 13:00)
DX: I44.1 Atrioventricular block, second degree (principal); Z68.41 Body mass index [BMI] 40.0-44.9, adult; R00.1 Bradycardia, unspecified; E78.5 Hyperlipidemia, unspecified; G35 Multiple sclerosis; E66.01 Morbid (severe) obesity due to excess calories; G47.33 Obstructive sleep apnea (adult) (pediatric); E11.42 Type 2 diabetes mellitus with diabetic polyneuropathy; E11.319 Type 2 diabetes mellitus with unspecified diabetic retinopathy without macular edema; Z79.4 Long term (current) use of insulin; Z79.84 Long term (current) use of oral hypoglycemic drugs; Z79.82 Long term (current) use of aspirin; Z82.49 Family history of ischemic heart disease and other diseases of the circulatory system
CPT/HCPCS: 33208; 36415; 36416; 71045; 80048; 80053; 80061; 80306; 81001; 82607; 82746; 82962; 83036; 83540; 83550; 83735; 83880; 84100; 84145; 84156; 84166; 84443; 84484; 85025; 85610; 85730; 87641; 93005; 93306; 96367; 96372; 97110; 97165; 99152; 99153; 99215; 99285; C1769; C1779; C1786; C1898; J0360; J0690; J1815; J2250; J3010; J3370; J3475; J3490; J7030; J7050; Q9967

== ENCOUNTER 2022-02-14 06:00 | Outpatient (RCR) | payer MEDICARE, SELFPAY | END 2022-03-16 23:59 | disposition home or self-care (01) | LOC: SPT 06:00 | PROVIDERS: PCP Registered Nurse; Visit Provider Registered Nurse | DX: R26.89 Other abnormalities of gait and mobility (principal) | CPT/HCPCS: 97110 ==

== ENCOUNTER 2022-02-18 16:14 | Oncology outpatient (recurring) (ONCR) | payer MEDICARE, SELFPAY | END 2022-03-16 23:59 | disposition home or self-care (01) | PROVIDERS: PCP Registered Nurse; Visit Provider Internal Medicine Medical Oncology | DX: D47.2 Monoclonal gammopathy; G62.9 Polyneuropathy, unspecified; Z95.0 Presence of cardiac pacemaker | CPT/HCPCS: 99213 ==

== ENCOUNTER → 2022-02-19 09:20 | Outpatient (BNVA) | payer MEDICARE, SELFPAY | PROVIDERS: PCP Registered Nurse; Visit Provider Nurse Practitioner Family | DX: Z95.0 Presence of cardiac pacemaker (principal) | CPT/HCPCS: 93280; 99213 ==

== ENCOUNTER 2022-03-28 18:44 | Emergency (ER) | payer MEDICARE, SELFPAY ==
[2022-03-28 19:13] VITALS: BP 118/69; PULSE 67; RESP 18; TEMP 36.4; O2SAT 97
--- NOTE | 2022-03-28 19:23 | ECG_ITS ---
[facility] Test Date: 2022-03-28 Pat Name: Nolan Palmer Department: Room: Gender: Male House Registry Rn: : 1950 Requested By: Francisco Silverman Order Number: [id number] Juan José MD: Jakob Dodd M.D. Measurements Intervals [place] Rate: 66 P: 210 [place]: 171 QRS: -69 QRSD: 185 T: 84 QT: 453 QTc: 477 Interpretive Statements ELECTRONIC ATRIAL PACEMAKER ELECTRONIC VENTRICULAR PACEMAKER Compared to ECG 01/31/2022 06:20:59 No significant changes Electronically Signed On 03-29-2022 8:52:28 PLASTIC CARD GRADER CARDROOM by Jakob Dodd M.D. [email or web address].Melior Discoverybatson children's hospitalHobbyTalkmount st. mary hospitalHangzhou [employer]/store/NU/[id number] f
--- NOTE | 2022-03-28 19:26 | W.ED.WEAKNES ---
HPI - Weakness General: Chief complaint: Weakness Stated complaint: Blood Pressure Keeps Dropping\Has Pace Maker Time Seen by Provider: 03/28/22 19:22 Source: patient and family History of Present Illness: 71-year-old male who had a pacemaker placement back in January. He notes that he felt well yesterday, but today began to feel generally weak. He was short of breath. No chest discomfort. Blood pressure at home was low, 82 systolic. His heart rate evidently was in the 40s on his monitor. His pacer is set at 60. Feeling of weakness and palpitations are now resolved. No history of fever. He has had a cough. MD Complaint: generalized weakness Onset (ago): hour(s) Duration: improved Location: generalized Migration: none Severity: moderate Relieving factors: none Exacerbating factors: none Associated symptoms: Denies chest pain, fever(s), nausea or vomiting Review of Systems Const: Denies: fever(s) ENMT: Denies: throat pain Card: Denies: chest pain Resp: Reports: dyspnea and non-productive cough; Denies: productive cough GI: Denies: abdominal pain, nausea or vomiting PFSH ED PFSH: Medical History Degenerative joint disease of spine Enrolled in chronic care management Essential hypertension GERD (gastroesophageal reflux disease) Hyperlipidemia associated with type 2 diabetes mellitus Monoclonal gammopathy Multiple sclerosis Neuropathy Obesity CARMEN (obstructive sleep apnea) Pacemaker Surgical History Hx of unilateral orchiectomy Left orchiectomy for testicular torsion S/P hemorrhoidectomy S/P insertion of spinal cord stimulator S/P placement of cardiac pacemaker Family History Father CAD (coronary artery disease) Mother CAD (coronary artery disease) Hypertension Social History Smoking and tobacco status: never smoked Alcohol intake: never Adopted: No Caregiver/support person: No Lives independently: No Household members: spouse Marital status: Current occupational status: disabled Sexually active: Yes Current gender identity: Male Physical Exam Const: GENERAL APPEARANCE: cooperative and frail appearing HENMT: COMMON NORMALS: normocephalic and atraumatic HEAD & SCALP: normocephalic and atraumatic FACE & SINUS: normal facial exam NOSE: Normal nares present Eye: COMMON NORMALS: Equal, round and reactive pupils present and EOMs intact bilaterally PUPIL: Yes Equal, round and reactive pupils present Neck/C-Spine: GENERAL: Yes trachea midline Chest: CHEST: Yes Symmetrical chest wall rise Resp: COMMON NORMALS: normal respiratory effort, No use of accessory muscles and clear to auscultation bilaterally AUSCULTATION: clear to auscultation bilaterally Cardio: COMMON NORMALS: regular rate and regular rhythm RATE: regular rate RHYTHM: regular rhythm GI: COMMON NORMALS: Normal to inspection, nondistended, normoactive bowel sounds present, Soft to palpation and non-tender PALPATION: Yes Soft to palpation Extremity: GENERAL: Yes edema (1+) Neuro: [place] COMA SCALE: document GCS findings [place] coma scale eye opening: Spontaneous [place] coma scale verbal response: Orientated [place] coma scale motor response: Obey commands [place] coma scale total score: 15 Psych: COMMON NORMALS: mental status grossly normal and cooperative Course Vital Signs: Vital signs: Vital Signs Temperature 97.5 F L 03/28/22 19:13 Pulse Rate 60 03/28/22 22:43 Respiratory Rate 18 03/28/22 22:43 Blood Pressure 139/65 03/28/22 22:43 Pulse Oximetry 99 03/28/22 22:43 Oxygen Delivery Me thod 03/28/22 19:59 MDM - Weakness Medical Decision Making The patient has been normotensive to slightly hypertensive here. He is exhibited no more feelings of palpitations and weakness. CBC is normal. BMP is not remarkable. Liver enzymes are normal. Magnesium is mildly low. Delta troponin is -3. EKG shows a proper paced rhythm at 60. No arrhythmias on the monitor. Pacer appears to be functioning properly on the monitor. We called for pacer interrogation and interpretation, and have heard back. There were no arrhythmias the patient was paced out of. No malfunction of the pacer. Since he has had no recurrences, he will be allowed discharge Lab Data 03/28/22 20:10 03/28/22 20:10 Radiology Impressions Chest X-Ray 03/28/22 19:45 IMPRESSION: No acute findings. Laboratory Results WBC 6.6 10^3/uL (4.0-10.0) 03/28/22 20:10 RBC 5.12 10^6/uL (4.1-5.3) 03/28/22 20:10 Hgb 15.2 g/dL (11.7-16.6) 03/28/22 20:10 Hct 47.1 % (42.0-52.0) 03/28/22 20:10 MCV 92.0 fl (80-94) 03/28/22 20:10 MCH 29.7 pg (28.0-34.0) 03/28/22 20:10 MCHC 32.3 g/dL (30.0-36.0) 03/28/22 20:10 RDW 13.1 % (12.1-15.1) 03/28/22 20:10 Plt Count 178 10^3/cmm (130-400) 03/28/22 20:10 MPV 9.4 fL (7.4-10.4) 03/28/22 20:10 Neut % (Auto) 65.5 % 03/28/22 20:10 Lymph % (Auto) 22.6 % 03/28/22 20:10 [place] % (Auto) 8.1 % 03/28/22 20:10 Eos % (Auto) 2.9 % 03/28/22 20:10 Baso % (Auto) 0.6 % 03/28/22 20:10 Neut # (Auto) 4.34 10^3/uL (1.8-7.7) 03/28/22 20:10 Lymph # (Auto) 1.5 10^3/uL (0.8-4.8) 03/28/22 20:10 [place] # (Auto) 0.5 10^3/uL (0.2-0.9) 03/28/22 20:10 Eos # (Auto) 0.2 10^3/uL (0.0-0.8) 03/28/22 20:10 Baso # (Auto) 0.0 10^3/uL (0.0-0.1) 03/28/22 20:10 Nucleated RBC % (auto) 0 % 03/28/22 20:10 Nucleated RBCs # 0.0 /100WBC 03/28/22 20:10 Sodium 137 mmol/L (136-145) 03/28/22 20:10 Potassium 3.7 mmol/L (3.5-5.1) 03/28/22 20:10 Chloride 96 mmol/L (98-107) L 03/28/22 20:10 Carbon Dioxide 28 mmol/L (22-29) 03/28/22 20:10 Anion Gap 16.7 (5-19) 03/28/22 20:10 BUN 20 mg/dL (8-23) 03/28/22 20:10 Creatinine 1.2 mg/dL (0.7-1.2) 03/28/22 20:10 GFR Calculation Not Reportable 03/28/22 20:10 Glucose 89 mg/dL (65-115) 03/28/22 20:10 Calculated Osmolality 286 mOsm/kg (285-295) 03/28/22 20:10 Lactate 1.2 mmol/L (0.5-2.2) 03/28/22 20:50 Calcium 9.4 mg/dL (8.5-10.5) 03/28/22 20:10 Magnesium 1.4 mg/dL (1.7-2.3) L 03/28/22 20:10 Total Bilirubin 0.3 mg/dL (0.15-1.2) 03/28/22 20:10 AST 29 U/L (0-40) 03/28/22 20:10 ALT 10 U/L (0-41) 03/28/22 20:10 Alkaline Phosphatase 76 U/L (40-130) 03/28/22 20:10 Troponin T Baseline 22 ng/L (0-15) H 03/28/22 20:10 Troponin T 120 Minute 18.27 ng/L (0-15) H 03/28/22 22:30 Delta Troponin T -3.73 ABS# (0-10) L 03/28/22 22:30 NT-Pro-B Natriuret Pep 57 pg/mL (0-125) 03/28/22 20:10 Total Protein 7.4 g/dL (6.6-8.7) 03/28/22 20:10 Albumin 4.1 g/dL (3.5-5.2) 03/28/22 20:10 Globulin 3.3 g/dL (1.3-4.6) 03/28/22 20:10 Urine Color Yellow (Yellow) 03/28/22 20:15 Urine Appearance Clear (CLEAR) 03/28/22 20:15 Urine pH 6 (5-7) 03/28/22 20:15 Ur Specific [place] 1.015 (1.005-1.030) 03/28/22 20:15 Urine Protein Neg (Negative) 03/28/22 20:15 Urine Glucose (UA) Norm (Normal) 03/28/22 20:15 Urine Ketones Negative (Negative) 03/28/22 20:15 Urine Blood Neg (Negative) 03/28/22 20:15 Urine Nitrate Negative (Negative) 03/28/22 20:15 Urine Bilirubin Neg (Negative) 03/28/22 20:15 Urine Urobilinogen Neg mg/dL (Negative) 03/28/22 20:15 Ur Leukocyte Esterase Negative (Negative) 03/28/22 20:15 Influenza Type A Ag negative (Negative) 03/28/22 20:00 Influenza Type B Ag negative (Negative) 03/28/22 20:00 SARS-CoV-2 Ag (Rapid) negative (Negative) 03/28/22 20:00 Discharge Plan Discharge Patient Disposition: Home Clinical Impression: Episode of generalized weakness Condition: Stable Prescriptions: No Action zinc gluconate 30 mg tablet 30 mg PO DAILY aspirin 325 mg tablet 325 mg PO DAILY carvedilol 6.25 mg tablet 6.25 mg PO BID Qty: 180 2RF gabapentin 800 mg tablet 800 mg PO BID 90 Days Qty: 180 1RF metformin 1,000 mg tablet 1,000 mg PO BID 90 Days Qty: 180 3RF Levemir U-100 Insulin 100 unit/mL solution See Rx Instructions .ROUTE .COMPLEX Qty: 100 3RF Dose Instruction: INJECT 1 MILLILITER SUBCUTANEOUSLY DAILY Rx Instructions: INJECT 1 MILLILITER SUBCUTANEOUSLY QPM give pt 6 vials this last him 3 months. (DME) OneTouch Ultra Test Strip See Rx Instructions .ROUTE .COMPLEX Qty: 400 0RF Dose Instruction: USE TO TEST BLOOD SUGAR FIVE TIMES DAILY Rx Instructions: USE TO TEST BLOOD SUGAR FIVE TIMES DAILY potassium chloride 10 mEq tablet extended release 10 meq PO DAILY Qty: 90 0RF lisinopril 40 mg tablet See Rx Instructions .ROUTE .COMPLEX Qty: 90 0RF Dose Instruction: TAKE 1 TABLET BY MOUTH DAILY Rx Instructions: TAKE 1 TABLET BY MOUTH DAILY chlorthalidone 50 mg tablet See Rx Instructions .ROUTE .COMPLEX Qty: 90 0RF Dose Instruction: TAKE 1 TABLET BY MOUTH DAILY Rx Instructions: TAKE 1 TABLET BY MOUTH DAILY amlodipine 10 mg tablet 10 mg PO DAILY gemfibrozil 600 mg tablet 600 mg PO BID rosuvastatin 20 mg tablet 20 mg PO DAILY insulin aspart U-100 100 unit/mL solution See Rx Instructions .ROUTE .COMPLEX Qty: 60 1RF Dose Instruction: INJECT 30 UNITS UNDER THE SKIN UP TO THREE TIMES DAILY WITH MEALS Rx Instructions: INJECT 3 UNITS UNDER THE SKIN UP TO THREE TIMES DAILY WITH MEALS tizanidine 4 mg tablet 8 mg PO BID Discharge Orders: Discharge ED (Routine); Ordered 03/29/22 Ordered By: Francisco Siddiqui Referrals: Maged Bustamante, PUBLIC SERVICE DIRECTOR [Primary Care Provider] - 4-7 days Patient Instructions: Weakness (Generalized) Activity Restrictions/Additional Instructions: Return for worsening weakness, chest discomfort, shortness of breath, mental status changes, syncope or passing out, any other concerning symptoms. Coding Level of Care Code ED Radiotelephone Operator for Jagruti Potter
--- NOTE | 2022-03-28 19:45 | XRR_ITS ---
PROCEDURE INFORMATION: Exam: XR Chest Exam date and time: 03/28/2022 7:52 PM Age: 71 years old Clinical indication: Other: Weakness; Prior surgery; Surgery date: 6+ months; Surgery type: Pacemaker TECHNIQUE: Imaging protocol: Radiologic exam of the chest. Views: 1 view. COMPARISON: CR XR chest 1V [id number] 01/31/2022 5:45 AM FINDINGS: Tubes, catheters and devices: Stable left pacemaker. Stable pain management/neurostimulator device. Lungs: Unremarkable. No consolidation. Pleural spaces: Unremarkable. No pleural effusion. No pneumothorax. Heart/Mediastinum: Unremarkable. No cardiomegaly. Bones/joints: Unremarkable. XR/XR chest 1V portable [id number] IMPRESSION: No acute findings.
[2022-03-28 19:59] VITALS: BP 128/69; PULSE 60; RESP 22; O2SAT 98
[2022-03-28 20:22] LABS: Basophils % 0.6 %; Eosinophils # 0.2 10^3/uL (0.0-0.8); Eosinophils % 2.9 %; Hematocrit 47.1 % (42.0-52.0); Hemoglobin 15.2 g/dL (11.7-16.6); Lymphocytes # 1.5 10^3/uL (0.8-4.8); Lymphocytes % 22.6 %; Mean Corpuscular HGB Conc 32.3 g/dL (30.0-36.0); Mean Corpuscular Hemoglobin 29.7 pg (28.0-34.0); Mean Platelet Volume 9.4 fL (7.4-10.4); Monocytes # 0.5 10^3/uL (0.2-0.9); Monocytes % 8.1 %; Neutrophils # 4.34 10^3/uL (1.8-7.7); Neutrophils % 65.5 %; Nucleated Red Blood Cells % 0 %; Platelet Count 178 10^3/cmm (130-400); Red Blood Count 5.12 10^6/uL (4.1-5.3); Red Cell Distribution Width 13.1 % (12.1-15.1); White Blood Count 6.6 10^3/uL (4.0-10.0)
[2022-03-28 20:25] LABS: Influenza A by IFA negative (Negative); Influenza B by IFA negative (Negative); SARS Covid-2 Antigen negative (Negative)
[2022-03-28 20:26] LABS: Add Urine Microscopic? NO; Charge for UA Resulting for Rev
[2022-03-28 20:40] VITALS: BP 131/67; PULSE 62; RESP 21; O2SAT 100
[2022-03-28 20:45] LABS: Bilirubin Urine Neg (Negative); Blood Urine Neg (Negative); Glucose Urine UA Norm (Normal); Ketones Urine Negative (Negative); Leukocyte Esterase Urine Negative (Negative); Nitrate Urine Negative (Negative); Protein Urine Neg (Negative); Specific Gravity, Urine 1.015 (1.005-1.030); Urine Appearance Clear (CLEAR); Urine Color Yellow (Yellow); Urobilinogen Urine Neg (Negative); pH Urine 6 (5-7)
[2022-03-28 20:46] LABS: Troponin(5th) Baseline 22 ng/L (0-15)
[2022-03-28 20:55] LABS: NT Pro B Type Natriuretic Pept 57 pg/mL (0-125)
[2022-03-28 21:13] LABS: Lactate (Lactic Acid level) 1.2 mmol/L (0.5-2.2)
--- NOTE | 2022-03-28 21:45 | ECG_ITS ---
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 Measurements Intervals [place] Rate: 59 P: 211 TN: 171 QRS: -68 QRSD: 188 T: 82 QT: 476 QTc: 475 Interpretive Statements ELECTRONIC ATRIAL PACEMAKER ELECTRONIC VENTRICULAR PACEMAKER Compared to ECG 01/31/2022 06:20:59 No significant changes Electronically Signed On 03-29-2022 11:23:02 TUBE COREMAKER by Jakob Dodd M.D. [email or web address] hospital at stone county2Peer ([place])[facility] b[facility], md, cancer centerRudder/store/OM/[id number]/[id number]
[2022-03-28 22:43] VITALS: BP 139/65; PULSE 60; RESP 18; O2SAT 99
[2022-03-28 22:45] LABS: Alanine Aminotransferase 10 U/L (0-41); Albumin Level 4.1 g/dL (3.5-5.2); Alkaline Phosphatase 76 U/L (40-130); Anion Gap 16.7 (5-19); Aspartate Amino Transferase 29 U/L (0-40); Blood Urea Nitrogen 20 mg/dL (8-23); Calcium 9.4 mg/dL (8.5-10.5); Carbon Dioxide 28 mmol/L (22-29); Chloride 96 mmol/L (98-107); Globulin 3.3 g/dL (1.3-4.6); Glucose 89 mg/dL (65-115); Magnesium 1.4 mg/dL (1.7-2.3); Osmolality Calculated 286 mOsm/kg (285-295); Potassium 3.7 mmol/L (3.5-5.1); Sodium 137 mmol/L (136-145); Total Bilirubin 0.3 mg/dL (0.15-1.2); Total Protein 7.4 g/dL (6.6-8.7)
[2022-03-28 22:58] LABS: Troponin 5 2HR 18.27 ng/L (0-15)
[2022-03-28 23:03] LABS: Troponin 5 2HR Delta -3.73 ABS# (0-10)
== END 2022-03-29 00:28 | disposition home or self-care (01) ==
PROVIDERS: Emergency Provider Emergency Medicine; PCP Registered Nurse
DX: R53.1 Weakness (principal); Z20.822 Contact with and (suspected) exposure to COVID-19; Z79.82 Long term (current) use of aspirin; Z79.84 Long term (current) use of oral hypoglycemic drugs; Z79.4 Long term (current) use of insulin; Z95.0 Presence of cardiac pacemaker; I10 Essential (primary) hypertension; E78.5 Hyperlipidemia, unspecified; E11.9 Type 2 diabetes mellitus without complications; G35 Multiple sclerosis
CPT/HCPCS: 71045; 80053; 81003; 83605; 83735; 83880; 84484; 85025; 87426; 87804; 93005; 99285

== ENCOUNTER 2022-05-05 15:42 | Emergency (ER) | payer MEDICARE, SELFPAY ==
[2022-05-05] VITALS (7 sets, daily range): BP systolic 104–146; BP diastolic 47–73; PULSE 62–95; RESP 16; TEMP 36.7; O2SAT 95–99
--- NOTE | 2022-05-05 16:05 | XR_ITS ---
WS: [id number] EXAMINATION: XR chest 1V portable [id number] REASON FOR EXAM: hypotension COMPARISON: 03/28/2022 ORDER DATE: 05/05/2022 4:37 PM TECHNIQUE: A single, portable frontal chest x-ray was obtained. X-RAY FINDINGS: Tubes, catheters and devices: Stable left pacemaker. Stable pain management/neurostimulator device. Lungs: Unremarkable. No consolidation. Pleural spaces: Unremarkable. No pleural effusion. No pneumothorax. Heart/Mediastinum: Unremarkable. No cardiomegaly. Bones/joints: Unremarkable. XR/XR chest 1V portable [id number] IMPRESSION: No acute findings.
--- NOTE | 2022-05-05 16:31 | ECG_ITS ---
[facility] Test Date: 2022-05-05 Pat Name: Nolan Palmer Department: Room: Gender: Male Senior Tax Manager: : 1950 Requested By: Heidi Esteban Order Number: [id number] Can MD: Jakob Dodd M.D. Measurements Intervals [place] Rate: 65 P: 228 [place]: 79 QRS: -74 QRSD: 187 T: 88 QT: 468 QTc: 489 Interpretive Statements ELECTRONIC ATRIAL PACEMAKER ELECTRONIC VENTRICULAR PACEMAKER Compared to ECG 03/28/2022 22:01:33 No significant changes Electronically Signed On 05-05-2022 16:43:06 CDT by Jakob Dodd M.D. [email or web address].[employer]/store/[id number]
--- NOTE | 2022-05-05 16:53 | ED_ITS ---
Documented by User: JOEY Austin 05/05/22 16:58 HPI - General Adult General: Chief complaint: General Medical Stated complaint: low BP, sent by Yousif Time Seen by Provider: 05/05/22 16:05 Source: patient and family () Mode of arrival: wheelchair Limitations: no limitations History of Present Illness: Patient is a 72-year-old male who presents to ED today after being seen at Dr. Chavez's office and sent to the ED secondary to hypotension. I spoke to Dr. Chavez directly who stated blood pressures were 70s over 40s in office. had mentioned patient had an episode earlier today where he seemed to swoon . states he has done this multiple times pre viously but has never checked a blood pressure during these episodes to see if he is getting hypotensive. Patient upon arrival has a blood pressure of 104/67. During my initial assessment blood pressure is 120s/60s. Patient states he does not have any symptoms currently. states herself and the patient have been sick with an upper respiratory infection over the past week or so. Patient denies chest pain, shortness of breath, difficulty breathing, fevers. [facility] ED PFSH: Medical History Degenerative joint disease of spine Enrolled in chronic care management Essential hypertension GERD (gastroesophageal reflux disease) Hyperlipidemia associated with type 2 diabetes mellitus Monoclonal gammopathy Multiple sclerosis Neuropathy Obesity CARMEN (obstructive sleep apnea) Pacemaker Surgical History Hx of unilateral orchiectomy Left orchiectomy for testicular torsion S/P hemorrhoidectomy S/P insertion of spinal cord stimulator S/P placement of cardiac pacemaker Family History Father CAD (coronary artery disease) Mother CAD (coronary artery disease) Hypertension Social History Smoking and tobacco status: never smoked Alcohol intake: never Adopted: No Caregiver/support person: No Lives independently: No Household members: spouse Marital status: Current occupational status: disabled Sexually active: Yes Current gender identity: Male Course Vital Signs: Vital signs: Vital Signs Temperature 98.0 F 05/05/22 15:56 Pulse Rate 68 05/05/22 17:46 Respiratory Rate 16 05/05/22 15:56 Blood Pressure 146/73 05/05/22 17:46 Pulse Oximetry 98 05/05/22 17:46 Oxygen Delivery Me thod 05/05/22 17:46 MDM - General Adult Lab Data 05/05/22 16:55 05/05/22 16:55 Radiology Impressions Chest X-Ray 05/05/22 16:05 IMPRESSION: No acute findings. Laboratory Results WBC 6.3 10^3/uL (4.0-10.0) 05/05/22 16:55 RBC 4.83 10^6/uL (4.1-5.3) 05/05/22 16:55 Hgb 14.6 g/dL (11.7-16.6) 05/05/22 16:55 Hct 44.9 % (42.0-52.0) 05/05/22 16:55 MCV 93.0 fl (80-94) 05/05/22 16:55 MCH 30.2 pg (28.0-34.0) 05/05/22 16:55 MCHC 32.5 g/dL (30.0-36.0) 05/05/22 16:55 RDW 13.7 % (12.1-15.1) 05/05/22 16:55 Plt Count 191 10^3/cmm (130-400) 05/05/22 16:55 MPV 9.6 fL (7.4-10.4) 05/05/22 16:55 Neut % (Auto) 70.2 % 05/05/22 16:55 Lymph % (Auto) 19.5 % 05/05/22 16:55 [place] % (Auto) 7.3 % 05/05/22 16:55 Eos % (Auto) 2.1 % 05/05/22 16:55 Baso % (Auto) 0.6 % 05/05/22 16:55 Neut # (Auto) 4.39 10^3/uL (1.8-7.7) 05/05/22 16:55 Lymph # (Auto) 1.2 10^3/uL (0.8-4.8) 05/05/22 16:55 [place] # (Auto) 0.5 10^3/uL (0.2-0.9) 05/05/22 16:55 Eos # (Auto) 0.1 10^3/uL (0.0-0.8) 05/05/22 16:55 Baso # (Auto) 0.0 10^3/uL (0.0-0.1) 05/05/22 16:55 Nucleated RBC % (auto) 0 % 05/05/22 16:55 Nucleated RBCs # 0.0 /100WBC 05/05/22 16:55 Sodium 141 mmol/L (136-145) 05/05/22 16:55 Potassium 3.9 mmol/L (3.5-5.1) 05/05/22 16:55 Chloride 100 mmol/L (98-107) 05/05/22 16:55 Carbon Dioxide 28 mmol/L (22-29) 05/05/22 16:55 Anion Gap 16.9 (5-19) 05/05/22 16:55 BUN 25 mg/dL (8-23) H 05/05/22 16:55 Creatinine 1.4 mg/dL (0.7-1.2) H 05/05/22 16:55 GFR Calculation Not Reportable 05/05/22 16:55 Glucose 148 mg/dL (65-115) H 05/05/22 16:55 Calculated Osmolality 299 mOsm/kg (285-295) H 05/05/22 16:55 Calcium 8.6 mg/dL (8.5-10.5) 05/05/22 16:55 Total Bilirubin 0.2 mg/dL (0.15-1.2) 05/05/22 16:55 AST 40 U/L (0-40) 05/05/22 16:55 ALT 10 U/L (0-41) 05/05/22 16:55 Alkaline Phosphatase 73 U/L (40-130) 05/05/22 16:55 Troponin T Baseline 33 ng/L (0-15) H 05/05/22 16:55 Total Protein 7.4 g/dL (6.6-8.7) 05/05/22 16:55 Albumin 4.2 g/dL (3.5-5.2) 05/05/22 16:55 Globulin 3.2 g/dL (1.3-4.6) 05/05/22 16:55 Urine Color Yellow (Yellow) 05/05/22 17:55 Urine Appearance Hazy (CLEAR) A 05/05/22 17:55 Urine pH 5 (5-7) 05/05/22 17:55 Ur Specific [place] 1.015 (1.005-1.030) 05/05/22 17:55 Urine Protein Trace (Negative) 05/05/22 17:55 Urine Glucose (UA) Norm (Normal) 05/05/22 17:55 Urine Ketones 1+ (Negative) H 05/05/22 17:55 Urine Blood Neg (Negative) 05/05/22 17:55 Urine Nitrate Negative (Negative) 05/05/22 17:55 Urine Bilirubin Neg (Negative) 05/05/22 17:55 Urine Urobilinogen Neg mg/dL (Negative) 05/05/22 17:55 Ur Leukocyte Esterase 1+ (Negative) H 05/05/22 17:55 Urine RBC None /hpf (0-2) 05/05/22 17:55 Urine WBC 10-15 /hpf (0-5) H 05/05/22 17:55 Ur Squamous Epith Cells None /hpf (0-5) 05/05/22 17:55 Amorphous Sediment Not Reportable 05/05/22 17:55 Urine Bacteria None /hpf (NONE) 05/05/22 17:55 Urine Mucus 2+ /hpf 05/05/22 17:55 Discharge Plan Discharge Patient Disposition: Home Clinical Impression: Dehydration, Hypotension, unspecified, Bacterial UTI Condition: Stable Prescriptions: New cephalexin 500 mg capsule 500 mg PO BID 7 Days Qty: 14 0RF No Action zinc gluconate 30 mg tablet 30 mg PO DAILY aspirin 325 mg tablet 325 mg PO DAILY carvedilol 6.25 mg tablet 6.25 mg PO BID Qty: 180 2RF gabapentin 800 mg tablet 800 mg PO BID 90 Days Qty: 180 1RF metformin 1,000 mg tablet 1,000 mg PO BID 90 Days Qty: 180 3RF Levemir U-100 Insulin 100 unit/mL solution See Rx Instructions .ROUTE .COMPLEX Qty: 100 3RF Dose Instruction: INJECT 1 MILLILITER SUBCUTANEOUSLY DAILY Rx Instructions: INJECT 1 MILLILITER SUBCUTANEOUSLY QPM give pt 6 vials this last him 3 months. (DME) OneTouch Ultra Test Strip See Rx Instructions .ROUTE .COMPLEX Qty: 400 0RF Dose Instruction: USE TO TEST BLOOD SUGAR FIVE TIMES DAILY Rx Instructions: USE TO TEST BLOOD SUGAR FIVE TIMES DAILY potassium chloride 10 mEq tablet extended release 10 meq PO DAILY Qty: 90 0RF lisinopril 40 mg tablet See Rx Instructions .ROUTE .COMPLEX Qty: 90 0RF Dose Instruction: TAKE 1 TABLET BY MOUTH DAILY Rx Instructions: TAKE 1 TABLET BY MOUTH DAILY chlorthalidone 50 mg tablet See Rx Instructions .ROUTE .COMPLEX Qty: 90 0RF Dose Instruction: TAKE 1 TABLET BY MOUTH DAILY Rx Instructions: TAKE 1 TABLET BY MOUTH DAILY amlodipine 10 mg tablet See Rx Instructions .ROUTE .COMPLEX Qty: 90 0RF Dose Instruction: TAKE 1 TABLET BY MOUTH DAILY Rx Instructions: TAKE 1 TABLET BY MOUTH DAILY gemfibrozil 600 mg tablet 600 mg PO BID rosuvastatin 20 mg tablet 20 mg PO DAILY insulin aspart U-100 100 unit/mL solution See Rx Instructions .ROUTE .COMPLEX Qty: 60 1RF Dose Instruction: INJECT 30 UNITS UNDER THE SKIN UP TO THREE TIMES DAILY WITH MEALS Rx Instructions: INJECT 3 UNITS UNDER THE SKIN UP TO THREE TIMES DAILY WITH MEALS tizanidine 4 mg tablet 8 mg PO BID Discharge Orders: Discharge ED (Routine); Ordered 05/05/22 Ordered By: Ryan Conde Referrals: Maged Bustamante FNP [Primary Care Provider] - Discharge Diet: Usual diet Discharge Activity: Increase activity as tolerated Activity Restrictions/Additional Instructions: Take antibiotic as directed. Hold lisinopril 40 mg until follow-up with primary care in 1 week. Monitor blood pressure once daily until follow-up appointment. You need to have your urine rechecked in 1 week to assure clearance of the infection. Discussed with primary care discontinuation of lisinopril or a dose lowering to help with low blood pressure. Return to ER for worsening symptoms such as chest pain, shortness of breath, or new concerns. Sign Out Sign Out Data: Patient Sign Out occurred on 05/05/22 at 17:10. Patient's care was discussed, and care was transferred from to Ryan Conde. Coding Level of Care Code ED User Support Analyst Supervisor for Jagruti Potter Documented by User: SOLITARIO Marcelo 05/05/22 18:51 HPI - General Adult General: Chief complaint: General Medical Stated complaint: low BP, sent by Dodd Time Seen by Provider: 05/05/22 16:05 History of Present Illness: Associated symptoms: Deny chest pain, dyspnea, nausea, rash or vomiting Review of Systems General: Reports: 10 or more systems reviewed and unremarkable except in HPI and below ENMT: Denies: throat pain Card: Denies: chest pain Resp: Denies: dyspnea GI: Denies: nausea, vomiting, diarrhea or constipation Skin/Breast: Denies: rash PFSH ED PFSH: Medical History Degenerative joint disease of spine Enrolled in chronic care management Essential hypertension GERD (gastroesophageal reflux disease) Hyperlipidemia associated with type 2 diabetes mellitus Monoclonal gammopathy Multiple sclerosis Neuropathy Obesity CARMEN (obstructive sleep apnea) Pacemaker Surgical History Hx of unilateral orchiectomy Left orchiectomy for testicular torsion S/P hemorrhoidectomy S/P insertion of spinal cord stimulator S/P placement of cardiac pacemaker Family History Father CAD (coronary artery disease) Mother CAD (coronary artery disease) Hypertension Social History Smoking and tobacco status: never smoked Alcohol intake: never Adopted: No Caregiver/support person: No Lives independently: No Household members: spouse Marital status: Current occupational status: disabled Sexually active: Yes Current gender identity: Male Physical Exam Const: COMMON NORMALS: alert HENMT: COMMON NORMALS: normocephalic HEAD & SCALP: normocephalic Neck/C-Spine: COMMON NORMALS: full ROM Resp: COMMON NORMALS: normal respiratory effort and clear to auscultation bilaterally AUSCULTATION: clear to auscultation bilaterally Cardio: COMMON NORMALS: regular rate RATE: regular rate GI: COMMON NORMALS: non-tender : COMMON NORMALS: Yes no CVA tenderness BLADDER/KIDNEY EXAM: Yes no CVA tenderness Back/Pelvis: COMMON NORMALS: no CVA tenderness Extremity: COMMON NORMALS: normal to inspection Neuro: SENSORIUM/ORIENTATION: Yes alert Skin: COMMON NORMALS: no rashes or lesions noted (Senile purpura) GENERAL SKIN EXAM: no rashes or lesions noted (Senile purpura) Course Vital Signs: Vital signs: Vital Signs Temperature 98.0 F 05/05/22 15:56 Pulse Rate 68 05/05/22 17:46 Respiratory Rate 16 05/05/22 15:56 Blood Pressure 146/73 05/05/22 17:46 Pulse Oximetry 98 05/05/22 17:46 Oxygen Delivery Me thod 05/05/22 17:46 MDM - General Adult Medical Decision Making 72-year-old male patient was at the physician's office and it was noted that patient had a significantly low blood pressure, in the 70s. Patient was brought into the ER and on arrival his blood pressure was 104 systolic. Patient's spouse states that they had had the flu over the last couple of weeks. On exam lungs are clear to auscultation abdomen soft nontender no edema is noted in the extremities. Heart rate is paced. Vital signs are normal. Differential diagnosis includes but not limited to dehydration, orthostatic hypotension, ACS, CHF, electrolyte imbalance. Patient's urine had some white blood cells and leukocyte Estrace which may be suggestive of a mild urinary tract infection. Patient was given 1 g of Rocephin we will keep her on cephalexin 500 twice daily for the next 7 days. I suspect though his hypotension is most likely due to his cardiac medications and blood pressure medication he routinely takes. Patient takes amlodipine 10 mg, carvedilol 6.25, chlorthalidone 50 mg, and lisinopril 40 mg. Recommend holding lisinopril 40 mg until follow-up with primary care for recheck of blood pressure and consideration of discontinuation or lowering the dose of that medicine. Patient and family both reported understanding of care plan and need for follow-up or return to the ER. Patient was stable to go home. Orthostatic blood pressures were normal. At rest patient did still have some blood pressures that dropped into the 90s systolic. Lab Data 05/05/22 16:55 05/05/22 16:55 Radiology Impressions Chest X-Ray 05/05/22 16:05 IMPRESSION: No acute findings. Laboratory Results WBC 6.3 10^3/uL (4.0-10.0) 05/05/22 16:55 RBC 4.83 10^6/uL (4.1-5.3) 05/05/22 16:55 Hgb 14.6 g/dL (11.7-16.6) 05/05/22 16:55 Hct 44.9 % (42.0-52.0) 05/05/22 16:55 MCV 93.0 fl (80-94) 05/05/22 16:55 MCH 30.2 pg (28.0-34.0) 05/05/22 16:55 MCHC 32.5 g/dL (30.0-36.0) 05/05/22 16:55 RDW 13.7 % (12.1-15.1) 05/05/22 16:55 Plt Count 191 10^3/cmm (130-400) 05/05/22 16:55 MPV 9.6 fL (7.4-10.4) 05/05/22 16:55 Neut % (Auto) 70.2 % 05/05/22 16:55 Lymph % (Auto) 19.5 % 05/05/22 16:55 [place] % (Auto) 7.3 % 05/05/22 16:55 Eos % (Auto) 2.1 % 05/05/22 16:55 Baso % (Auto) 0.6 % 05/05/22 16:55 Neut # (Auto) 4.39 10^3/uL (1.8-7.7) 05/05/22 16:55 Lymph # (Auto) 1.2 10^3/uL (0.8-4.8) 05/05/22 16:55 [place] # (Auto) 0.5 10^3/uL (0.2-0.9) 05/05/22 16:55 Eos # (Auto) 0.1 10^3/uL (0.0-0.8) 05/05/22 16:55 Baso # (Auto) 0.0 10^3/uL (0.0-0.1) 05/05/22 16:55 Nucleated RBC % (auto) 0 % 05/05/22 16:55 Nucleated RBCs # 0.0 /100WBC 05/05/22 16:55 Sodium 141 mmol/L (136-145) 05/05/22 16:55 Potassium 3.9 mmol/L (3.5-5.1) 05/05/22 16:55 Chloride 100 mmol/L (98-107) 05/05/22 16:55 Carbon Dioxide 28 mmol/L (22-29) 05/05/22 16:55 Anion Gap 16.9 (5-19) 05/05/22 16:55 BUN 25 mg/dL (8-23) H 05/05/22 16:55 Creatinine 1.4 mg/dL (0.7-1.2) H 05/05/22 16:55 GFR Calculation Not Reportable 05/05/22 16:55 Glucose 148 mg/dL (65-115) H 05/05/22 16:55 Calculated Osmolality 299 mOsm/kg (285-295) H 05/05/22 16:55 Calcium 8.6 mg/dL (8.5-10.5) 05/05/22 16:55 Total Bilirubin 0.2 mg/dL (0.15-1.2) 05/05/22 16:55 AST 40 U/L (0-40) 05/05/22 16:55 ALT 10 U/L (0-41) 05/05/22 16:55 Alkaline Phosphatase 73 U/L (40-130) 05/05/22 16:55 Troponin T Baseline 33 ng/L (0-15) H 05/05/22 16:55 Total Protein 7.4 g/dL (6.6-8.7) 05/05/22 16:55 Albumin 4.2 g/dL (3.5-5.2) 05/05/22 16:55 Globulin 3.2 g/dL (1.3-4.6) 05/05/22 16:55 Urine Color Yellow (Yellow) 05/05/22 17:55 Urine Appearance Hazy (CLEAR) A 05/05/22 17:55 Urine pH 5 (5-7) 05/05/22 17:55 Ur Specific [place] 1.015 (1.005-1.030) 05/05/22 17:55 Urine Protein Trace (Negative) 05/05/22 17:55 Urine Glucose (UA) Norm (Normal) 05/05/22 17:55 Urine Ketones 1+ (Negative) H 05/05/22 17:55 Urine Blood Neg (Negative) 05/05/22 17:55 Urine Nitrate Negative (Negative) 05/05/22 17:55 Urine Bilirubin Neg (Negative) 05/05/22 17:55 Urine Urobilinogen Neg mg/dL (Negative) 05/05/22 17:55 Ur Leukocyte Esterase 1+ (Negative) H 05/05/22 17:55 Urine RBC None /hpf (0-2) 05/05/22 17:55 Urine WBC 10-15 /hpf (0-5) H 05/05/22 17:55 Ur Squamous Epith Cells None /hpf (0-5) 05/05/22 17:55 Amorphous Sediment Not Reportable 05/05/22 17:55 Urine Bacteria None /hpf (NONE) 05/05/22 17:55 Urine Mucus 2+ /hpf 05/05/22 17:55 Discharge Plan Discharge Patient Disposition: Home Clinical Impression: Dehydration, Hypotension, unspecified, Bacterial UTI Condition: Stable Prescriptions: New cephalexin 500 mg capsule 500 mg PO BID 7 Days Qty: 14 0RF No Action zinc gluconate 30 mg tablet 30 mg PO DAILY aspirin 325 mg tablet 325 mg PO DAILY carvedilol 6.25 mg tablet 6.25 mg PO BID Qty: 180 2RF gabapentin 800 mg tablet 800 mg PO BID 90 Days Qty: 180 1RF metformin 1,000 mg tablet 1,000 mg PO BID 90 Days Qty: 180 3RF Levemir U-100 Insulin 100 unit/mL solution See Rx Instructions .ROUTE .COMPLEX Qty: 100 3RF Dose Instruction: INJECT 1 MILLILITER SUBCUTANEOUSLY DAILY Rx Instructions: INJECT 1 MILLILITER SUBCUTANEOUSLY QPM give pt 6 vials this last him 3 months. (DME) OneTouch Ultra Test Strip See Rx Instructions .ROUTE .COMPLEX Qty: 400 0RF Dose Instruction: USE TO TEST BLOOD SUGAR FIVE TIMES DAILY Rx Instructions: USE TO TEST BLOOD SUGAR FIVE TIMES DAILY potassium chloride 10 mEq tablet extended release 10 meq PO DAILY Qty: 90 0RF lisinopril 40 mg tablet See Rx Instructions .ROUTE .COMPLEX Qty: 90 0RF Dose Instruction: TAKE 1 TABLET BY MOUTH DAILY Rx Instructions: TAKE 1 TABLET BY MOUTH DAILY chlorthalidone 50 mg tablet See Rx Instructions .ROUTE .COMPLEX Qty: 90 0RF Dose Instruction: TAKE 1 TABLET BY MOUTH DAILY Rx Instructions: TAKE 1 TABLET BY MOUTH DAILY amlodipine 10 mg tablet See Rx Instructions .ROUTE .COMPLEX Qty: 90 0RF Dose Instruction: TAKE 1 TABLET BY MOUTH DAILY Rx Instructions: TAKE 1 TABLET BY MOUTH DAILY gemfibrozil 600 mg tablet 600 mg PO BID rosuvastatin 20 mg tablet 20 mg PO DAILY insulin aspart U-100 100 unit/mL solution See Rx Instructions .ROUTE .COMPLEX Qty: 60 1RF Dose Instruction: INJECT 30 UNITS UNDER THE SKIN UP TO THREE TIMES DAILY WITH MEALS Rx Instructions: INJECT 3 UNITS UNDER THE SKIN UP TO THREE TIMES DAILY WITH MEALS tizanidine 4 mg tablet 8 mg PO BID Discharge Orders: Discharge ED (Routine); Ordered 05/05/22 Ordered By: Ryan Conde Referrals: Maged Bustamante FNP [Primary Care Provider] - Discharge Diet: Usual diet Discharge Activity: Increase activity as tolerated Activity Restrictions/Additional Instructions: Take antibiotic as directed. Hold lisinopril 40 mg until follow-up with primary care in 1 week. Monitor blood pressure once daily until follow-up appointment. You need to have your urine rechecked in 1 week to assure clearance of the i nfection. Discussed with primary care discontinuation of lisinopril or a dose lowering to help with low blood pressure. Return to ER for worsening symptoms such as chest pain, shortness of breath, or new concerns. Sign Out Sign Out Data: Patient Sign Out occurred on 05/05/22 at 17:10. Patient's care was discussed, and care was transferred from to Ryan Conde. Coding Level of Care Code ED User Support Analyst Supervisor for Jagruti Potter
[2022-05-05 17:14] LABS: Basophils % 0.6 %; Eosinophils # 0.1 10^3/uL (0.0-0.8); Eosinophils % 2.1 %; Hematocrit 44.9 % (42.0-52.0); Hemoglobin 14.6 g/dL (11.7-16.6); Lymphocytes # 1.2 10^3/uL (0.8-4.8); Lymphocytes % 19.5 %; Mean Corpuscular HGB Conc 32.5 g/dL (30.0-36.0); Mean Corpuscular Hemoglobin 30.2 pg (28.0-34.0); Mean Platelet Volume 9.6 fL (7.4-10.4); Monocytes # 0.5 10^3/uL (0.2-0.9); Monocytes % 7.3 %; Neutrophils # 4.39 10^3/uL (1.8-7.7); Neutrophils % 70.2 %; Nucleated Red Blood Cells % 0 %; Platelet Count 191 10^3/cmm (130-400); Red Blood Count 4.83 10^6/uL (4.1-5.3); Red Cell Distribution Width 13.7 % (12.1-15.1); White Blood Count 6.3 10^3/uL (4.0-10.0)
[2022-05-05 17:42] LABS: Troponin(5th) Baseline 33 ng/L (0-15)
[2022-05-05 17:44] LABS: Alanine Aminotransferase 10 U/L (0-41); Albumin Level 4.2 g/dL (3.5-5.2); Alkaline Phosphatase 73 U/L (40-130); Anion Gap 16.9 (5-19); Aspartate Amino Transferase 40 U/L (0-40); Blood Urea Nitrogen 25 mg/dL (8-23); Calcium 8.6 mg/dL (8.5-10.5); Carbon Dioxide 28 mmol/L (22-29); Chloride 100 mmol/L (98-107); Globulin 3.2 g/dL (1.3-4.6); Glucose 148 mg/dL (65-115); Osmolality Calculated 299 mOsm/kg (285-295); Potassium 3.9 mmol/L (3.5-5.1); Sodium 141 mmol/L (136-145); Total Bilirubin 0.2 mg/dL (0.15-1.2); Total Protein 7.4 g/dL (6.6-8.7)
[2022-05-05] MEDS: sodium chloride 0.9% 500 ML 999 ML IV (17:57)
[2022-05-05 18:29] LABS: Add Urine Microscopic? YES; Bilirubin Urine Neg (Negative); Blood Urine Neg (Negative); Glucose Urine UA Norm (Normal); Ketones Urine 1+ (Negative); Leukocyte Esterase Urine 1+ (Negative); Nitrate Urine Negative (Negative); Protein Urine Trace (Negative); Specific Gravity, Urine 1.015 (1.005-1.030); Urine Appearance Hazy (CLEAR); Urine Color Yellow (Yellow); Urobilinogen Urine Neg (Negative); pH Urine 5 (5-7)
[2022-05-05 18:30] LABS: Add Urine Culture? No; Mucus Urine 2+ /hpf
--- NOTE | 2022-05-05 19:20 | ECG_ITS ---
[facility] Test Date: 2022-05-05 Pat Name: Nolan Palmer Department: Room: Gender: Male Hand I Tube Bender: : 1950 Requested By: Heidi Esteban Order Number: [id number] Juan José MD: Jakob Dodd M.D. Measurements Intervals [place] Rate: 63 P: 241 ME: 172 QRS: -74 QRSD: 186 T: 85 QT: 461 QTc: 475 Interpretive Statements ELECTRONIC ATRIAL PACEMAKER ELECTRONIC VENTRICULAR PACEMAKER ABNORMAL RHYTHM ECG Compared to ECG 05/05/2022 16:31:10 No significant changes Electronically Signed On 05-06-2022 7:43:17 CDT by Jakob Dodd M.D. [email or web address]
[2022-05-05] MEDS: cefTRIAXone 1,000 MG in sodium chloride 0.9% (plus) 50 ML 100 MG IV (19:41)
== END 2022-05-05 20:13 | disposition home or self-care (01) ==
PROVIDERS: Physician Assistant; Emergency Provider Nurse Practitioner Family; PCP Registered Nurse
DX: I95.9 Hypotension, unspecified (principal); E86.0 Dehydration; N39.0 Urinary tract infection, site not specified; B96.89 Other specified bacterial agents as the cause of diseases classified elsewhere; Z79.82 Long term (current) use of aspirin; Z79.4 Long term (current) use of insulin; Z79.84 Long term (current) use of oral hypoglycemic drugs; I10 Essential (primary) hypertension; E78.5 Hyperlipidemia, unspecified; E11.9 Type 2 diabetes mellitus without complications; G35 Multiple sclerosis; Z95.0 Presence of cardiac pacemaker
CPT/HCPCS: 71045; 80053; 81001; 84484; 85025; 93005; 96361; 96365; 99215; 99285; J0696; J7040

== ENCOUNTER → 2022-05-12 10:05 | Outpatient (BNVA) | payer MEDICARE, SELFPAY | PROVIDERS: PCP Registered Nurse; Visit Provider Registered Nurse | DX: N39.0 Urinary tract infection, site not specified (principal) | CPT/HCPCS: 81000; 87086 ==

== ENCOUNTER → 2022-06-01 08:13 | Outpatient (BNVA) | payer MEDICARE, SELFPAY | PROVIDERS: PCP Registered Nurse; Visit Provider Internal Medicine | DX: Z45.010 Encounter for checking and testing of cardiac pacemaker pulse generator [battery] (principal) | CPT/HCPCS: 93296 ==

== ENCOUNTER 2022-07-18 16:12 | Emergency (ER) | payer MEDICARE, SELFPAY ==
[2022-07-18 16:45] VITALS: BP 127/71; PULSE 70; RESP 12; TEMP 36.3; O2SAT 95; BMI 41.0
--- NOTE | 2022-07-18 17:19 | W.ED.GENADLT ---
Documented by User: Raul Camacho DO 07/18/22 17:21 HPI - General Adult General: Chief complaint: General Medical Stated complaint: low BP Time Seen by Provider: 07/18/22 17:02 History of Present Illness: Patient presents to the ER with complaints of blood pressure dropping after he takes his blood pressure medicine. Patient takes multiple blood pressure medicines twice a day. Approximately 1 to 3 hours afterwards his blood pressure drops patient is lightheaded dizzy and feels like he is going to pass out. This has been going on for several months. It started after they put his pacemaker in and did not adjust his blood pressure medicine. Patient has been seen for it by family practice and cardiology since this started and they have not changed anything. Onset (ago): month(s) Review of Systems General: Reports: 10 or more systems reviewed and unremarkable except in HPI and below PFSH ED PFSH: Medical History Degenerative joint disease of spine Enrolled in chronic care management Essential hypertension GERD (gastroesophageal reflux disease) Hyperlipidemia associated with type 2 diabetes mellitus Monoclonal gammopathy Multiple sclerosis Neuropathy Obesity CARMEN (obstructive sleep apnea) Pacemaker Surgical History Hx of unilateral orchiectomy Left orchiectomy for testicular torsion S/P hemorrhoidectomy S/P insertion of spinal cord stimulator S/P placement of cardiac pacemaker Family History Father CAD (coronary artery disease) Mother CAD (coronary artery disease) Hypertension Social History Smoking and tobacco status: never smoked Alcohol intake: never Substance/Drug Use: never Adopted: No Caregiver/support person: No Lives independently: No Household members: spouse Marital status: Current occupational status: disabled Sexually active: Yes Do you think of yourself as: Straight/Heterosexual Current gender identity: Male Physical Exam Const: COMMON NORMALS: no acute distress, average body habitus, patient oriented x3, no limitations, healthy appearing, alert and well nourished HENMT: COMMON NORMALS: normocephalic, atraumatic, hearing grossly normal bilaterally, external ears normal, Normal external nose present and moist oral mucous membranes HEAD & SCALP: normocephalic and atraumatic NOSE: Normal external nose present EXTERNAL EAR: Yes external ears normal Eye: COMMON NORMALS: Equal, round and reactive pupils present, EOMs intact bilaterally, conjunctivae normal and no scleral icterus CONJUNCTIVA: Yes conjunctivae normal PUPIL: Yes Equal, round and reactive pupils present Neck/C-Spine: COMMON NORMALS: full ROM, no lymphadenopathy, supple, no meningeal signs, no JVD and Thyroid normal THYROID: Thyroid normal Lymph: LYMPHATIC: no lymphadenopathy noted Chest: COMMONS NORMALS: normal inspection of the chest and normal palpation of entire chest wall Resp: COMMON NORMALS: normal respiratory effort, No retractions, No use of accessory muscles and clear to auscultation bilaterally AUSCULTATION: clear to auscultation bilaterally Cardio: COMMON NORMALS: no JVD, regular rate, regular rhythm, S1 normal heart sound present, S2 normal heart sound present, No gallops present (Cardio), No clicks present (Cardio), No murmurs present (Cardio) and No rub (Cardio) RATE: regular rate RHYTHM: regular rhythm HEART SOUNDS: S1 normal heart sound present and S2 normal heart sound present GI: COMMON NORMALS: Normal to inspection, nondistended, normoactive bowel sounds present, Soft to palpation, non-tender, No hepatosplenomegaly present and no masses PALPATION: Yes Soft to palpation and Yes No hepatosplenomegaly present : COMMON NORMALS: Yes no CVA tenderness BLADDER/KIDNEY EXAM: Yes no CVA tenderness Back/Pelvis: COMMON NORMALS: no CVA tenderness Neuro: COMMON NORMALS: patient oriented x3 SENSORIUM/ORIENTATION: Yes alert MENINGEAL SIGNS: Yes no meningeal signs Course Vital Signs: Vital signs: Vital Signs Temperature 97.4 F L 07/18/22 19:38 Pulse Rate 64 07/18/22 19:38 Respiratory Rate 16 07/18/22 19:38 Blood Pressure 146/70 07/18/22 19:38 Pulse Oximetry 99 07/18/22 19:38 Oxygen Delivery Me thod Room Air 07/18/22 18:11 MDM - General Adult Medical Decision Making Patient is on multiple blood pressure medicines and his blood pressure drops and gets lightheaded and dizzy a lot of x1 to 3 hours after he takes his blood pressure medicine. Patient's did bring in blood pressure log and this is consistent. Differential Diagnosis Overmedication of antihypertensives. Medical Records I reviewed the patient's medical records. Lab Data I reviewed the patient's lab results. 07/18/22 17:18 07/18/22 17:18 Laboratory Results WBC 4.9 10^3/uL (4.0-10.0) 07/18/22 17:18 RBC 4.99 10^6/uL (4.1-5.3) 07/18/22 17:18 Hgb 14.8 g/dL (11.7-16.6) 07/18/22 17:18 Hct 46.6 % (42.0-52.0) 07/18/22 17:18 MCV 93.4 fl (80-94) 07/18/22 17:18 MCH 29.7 pg (28.0-34.0) 07/18/22 17:18 MCHC 31.8 g/dL (30.0-36.0) 07/18/22 17:18 RDW 13.4 % (12.1-15.1) 07/18/22 17:18 Plt Count 167 10^3/cmm (130-400) 07/18/22 17:18 MPV 9.1 fL (7.4-10.4) 07/18/22 17:18 Neut % (Auto) 61.9 % 07/18/22 17:18 Lymph % (Auto) 24.8 % 07/18/22 17:18 [place] % (Auto) 9.2 % 07/18/22 17:18 Eos % (Auto) 2.7 % 07/18/22 17:18 Baso % (Auto) 1.2 % 07/18/22 17:18 Neut # (Auto) 3.01 10^3/uL (1.8-7.7) 07/18/22 17:18 Lymph # (Auto) 1.2 10^3/uL (0.8-4.8) 07/18/22 17:18 [place] # (Auto) 0.5 10^3/uL (0.2-0.9) 07/18/22 17:18 Eos # (Auto) 0.1 10^3/uL (0.0-0.8) 07/18/22 17:18 Baso # (Auto) 0.1 10^3/uL (0.0-0.1) 07/18/22 17:18 Nucleated RBC % (auto) 0 % 07/18/22 17:18 Nucleated RBCs # 0.0 /100WBC 07/18/22 17:18 Sodium 139 mmol/L (136-145) 07/18/22 17:18 Potassium 3.2 mmol/L (3.5-5.1) L 07/18/22 17:18 Chloride 98 mmol/L (98-107) 07/18/22 17:18 Carbon Dioxide 27 mmol/L (22-29) 07/18/22 17:18 Anion Gap 17.2 (5-19) 07/18/22 17:18 BUN 18 mg/dL (8-23) 07/18/22 17:18 Creatinine 1.0 mg/dL (0.7-1.2) 07/18/22 17:18 GFR Calculation Not Reportable 07/18/22 17:18 Glucose 103 mg/dL (65-115) 07/18/22 17:18 Calculated Osmolality 290 mOsm/kg (285-295) 07/18/22 17:18 Calcium 8.5 mg/dL (8.5-10.5) 07/18/22 17:18 Total Bilirubin 0.2 mg/dL (0.15-1.2) 07/18/22 17:18 AST 33 U/L (0-40) 07/18/22 17:18 ALT 9 U/L (0-41) 07/18/22 17:18 Alkaline Phosphatase 69 U/L (40-130) 07/18/22 17:18 Total Protein 7.1 g/dL (6.6-8.7) 07/18/22 17:18 Albumin 3.6 g/dL (3.5-5.2) 07/18/22 17:18 Globulin 3.5 g/dL (1.3-4.6) 07/18/22 17:18 Urine Color Yellow (Yellow) 07/18/22 18:10 Urine Appearance Clear (CLEAR) 07/18/22 18:10 Urine pH 6.5 (5-7) 07/18/22 18:10 Ur Specific Dorsey 1.005 (1.005-1.030) 07/18/22 18:10 Urine Protein Neg (Negative) 07/18/22 18:10 Urine Glucose (UA) Norm (Normal) 07/18/22 18:10 Urine Ketones Negative (Negative) 07/18/22 18:10 Urine Blood Neg (Negative) 07/18/22 18:10 Urine Nitrate Negative (Negative) 07/18/22 18:10 Urine Bilirubin Neg (Negative) 07/18/22 18:10 Urine Urobilinogen Norm mg/dL (Negative) 07/18/22 18:10 Ur Leukocyte Esterase Negative (Negative) 07/18/22 18:10 Discharge Plan Discharge Patient Disposition: Home Clinical Impression: Hypotension due to drugs Condition: Stable Prescriptions: No Action zinc gluconate 30 mg tablet 30 mg PO DAILY aspirin 325 mg tablet 325 mg PO DAILY carvedilol 6.25 mg tablet 6.25 mg PO BID Qty: 180 2RF gabapentin 800 mg tablet 800 mg PO BID 90 Days Qty: 180 1RF metformin 1,000 mg tablet 1,000 mg PO BID 90 Days Qty: 180 3RF Levemir U-100 Insulin 100 unit/mL solution See Rx Instructions .ROUTE .COMPLEX Qty: 100 3RF Dose Instruction: INJECT 1 MILLILITER SUBCUTANEOUSLY DAILY Rx Instructions: INJECT 1 MILLILITER SUBCUTANEOUSLY QPM give pt 6 vials this last him 3 months. lisinopril 10 mg tablet See Rx Instructions .ROUTE .COMPLEX Qty: 90 0RF Dose Instruction: TAKE 1 TABLET BY MOUTH DAILY Rx Instructions: TAKE 1 TABLET BY MOUTH DAILY amlodipine 10 mg tablet See Rx Instructions .ROUTE .COMPLEX Qty: 90 0RF Dose Instruction: TAKE 1 TABLET BY MOUTH DAILY Rx Instructions: TAKE 1 TABLET BY MOUTH DAILY (DME) OneTouch Ultra Test Strip See Rx Instructions .ROUTE .COMPLEX Qty: 400 0RF Dose Instruction: USE TO TEST BLOOD SUGAR 5 TIMES DAILY. Rx Instructions: USE TO TEST BLOOD SUGAR 5 TIMES DAILY. (DME) lancets [BD Ultra Fine Lancets] 33 gauge misc See Rx Instructions .Route Qty: 100 0RF Rx Instructions: test blood sugar 3 times daily potassium chloride 10 mEq tablet extended release 10 meq PO DAILY Qty: 90 0RF fluticasone propionate 50 mcg/actuation spray,suspension See Rx Instructions .ROUTE .COMPLEX Qty: 16 0RF Dose Instruction: SHAKE LIQUID AND USE 1 SPRAY IN EACH NOSTRIL TWICE DAILY FOR 10 DAYS Rx Instructions: SHAKE LIQUID AND USE 1 SPRAY IN EACH NOSTRIL TWICE DAILY FOR 10 DAYS chlorthalidone 50 mg tablet See Rx Instructions .ROUTE .COMPLEX Qty: 90 0RF Dose Instruction: TAKE 1 TABLET BY MOUTH DAILY Rx Instructions: TAKE 1 TABLET BY MOUTH DAILY tizanidine 4 mg tablet See Rx Instructions .ROUTE .COMPLEX Qty: 180 0RF Dose Instruction: TAKE 2 TABLETS BY MOUTH TWICE DAILY NEEDED FOR MILD PAIN Rx Instructions: TAKE 2 TABLETS BY MOUTH TWICE DAILY NEEDED FOR MILD PAIN gemfibrozil 600 mg tablet 600 mg PO BID rosuvastatin 20 mg tablet 20 mg PO DAILY insulin aspart U-100 100 unit/mL solution See Rx Instructions .ROUTE .COMPLEX Qty: 60 1RF Dose Instruction: INJECT 30 UNITS UNDER THE SKIN UP TO THREE TIMES DAILY WITH MEALS Rx Instructions: INJECT 3 UNITS UNDER THE SKIN UP TO THREE TIMES DAILY WITH MEALS Discharge Orders: Discharge ED (Routine); Ordered 07/18/22 Ordered By: Francisco Siddiqui Referrals: Maged Bustamante FNP [Primary Care Provider] - Patient Instructions: Hypotension (ED) Activity Restrictions/Additional Instructions: As we discussed, decrease your chlorthalidone dosage from 50mg to 25 mg (1/2 tablet) daily. Continue to monitor your blood pressures as you have been. Report those numbers to your doctor this coming week return for worsening symptoms including weakness, altered mental status, other concerns Coding Level of Care Code ED Glass Forming Engineer for Chg Fwd Documented by User: Francisco Siddiqui DO 07/19/22 00:17 HPI - General Adult General: Chief complaint: General Medical Stated complaint: low BP Time Seen by Provider: 07/18/22 17:02 PFS ED PFSH: Medical History Degenerative joint disease of spine Enrolled in chronic care management Essential hypertension GERD (gastroesophageal reflux disease) Hyperlipidemia associated with type 2 diabetes mellitus Monoclonal gammopathy Multiple sclerosis Neuropathy Obesity CARMEN (obstructive sleep apnea) Pacemaker Surgical History Hx of unilateral orchiectomy Left orchiectomy for testicular torsion S/P hemorrhoidectomy S/P insertion of spinal cord stimulator S/P placement of cardiac pacemaker Family History Father CAD (coronary artery disease) Mother CAD (coronary artery disease) Hypertension Social History Smoking and tobacco status: never smoked Alcohol intake: never Substance/Drug Use: never Adopted: No Caregiver/support person: No Lives independently: No Household members: spouse Marital status: Current occupational status: disabled Sexually active: Yes Do you think of yourself as: Straight/Heterosexual Current gender identity: Male Course Vital Signs: Vital signs: Vital Signs Temperature 97.4 F L 07/18/22 19:38 Pulse Rate 64 07/18/22 19:38 Respiratory Rate 16 07/18/22 19:38 Blood Pressure 146/70 07/18/22 19:38 Pulse Oximetry 99 07/18/22 19:38 Oxygen Delivery Me thod Room Air 07/18/22 18:11 MDM - General Adult Medical Decision Making Patient is on multiple blood pressure medicines and his blood pressure drops and gets lightheaded and dizzy a lot of x1 to 3 hours after he takes his blood pressure medicine. Patient's did bring in blood pressure log and this is consistent. 72-year-old male checked out to me by the previous physician at shift change. Laboratory testing reveals a normal CBC. Potassium is 3.2 consistent with chlorthalidone use. Other laboratory is not remarkable. Considering his blood pressure, he does appear to be consistently dropping after administration of medication. We discussed possibilities of reduction of medication to prevent this. Given hypokalemia, will half the dose of chlorthalidone hoping hypokalemia corrects itself, as well as hypotension after antihypertensive administration both day and night will decrease in severity. and patient agreed to this plan. They will return for any worsening symptoms. Lab Data 07/18/22 17:18 07/18/22 17:18 Laboratory Results WBC 4.9 10^3/uL (4.0-10.0) 07/18/22 17:18 RBC 4.99 10^6/uL (4.1-5.3) 07/18/22 17:18 Hgb 14.8 g/dL (11.7-16.6) 07/18/22 17:18 Hct 46.6 % (42.0-52.0) 07/18/22 17:18 MCV 93.4 fl (80-94) 07/18/22 17:18 MCH 29.7 pg (28.0-34.0) 07/18/22 17:18 MCHC 31.8 g/dL (30.0-36.0) 07/18/22 17:18 RDW 13.4 % (12.1-15.1) 07/18/22 17:18 Plt Count 167 10^3/cmm (130-400) 07/18/22 17:18 MPV 9.1 fL (7.4-10.4) 07/18/22 17:18 Neut % (Auto) 61.9 % 07/18/22 17:18 Lymph % (Auto) 24.8 % 07/18/22 17:18 [place] % (Auto) 9.2 % 07/18/22 17:18 Eos % (Auto) 2.7 % 07/18/22 17:18 Baso % (Auto) 1.2 % 07/18/22 17:18 Neut # (Auto) 3.01 10^3/uL (1.8-7.7) 07/18/22 17:18 Lymph # (Auto) 1.2 10^3/uL (0.8-4.8) 07/18/22 17:18 [place] # (Auto) 0.5 10^3/uL (0.2-0.9) 07/18/22 17:18 Eos # (Auto) 0.1 10^3/uL (0.0-0.8) 07/18/22 17:18 Baso # (Auto) 0.1 10^3/uL (0.0-0.1) 07/18/22 17:18 Nucleated RBC % (auto) 0 % 07/18/22 17:18 Nucleated RBCs # 0.0 /100WBC 07/18/22 17:18 Sodium 139 mmol/L (136-145) 07/18/22 17:18 Potassium 3.2 mmol/L (3.5-5.1) L 07/18/22 17:18 Chloride 98 mmol/L (98-107) 07/18/22 17:18 Carbon Dioxide 27 mmol/L (22-29) 07/18/22 17:18 Anion Gap 17.2 (5-19) 07/18/22 17:18 BUN 18 mg/dL (8-23) 07/18/22 17:18 Creatinine 1.0 mg/dL (0.7-1.2) 07/18/22 17:18 GFR Calculation Not Reportable 07/18/22 17:18 Glucose 103 mg/dL (65-115) 07/18/22 17:18 Calculated Osmolality 290 mOsm/kg (285-295) 07/18/22 17:18 Calcium 8.5 mg/dL (8.5-10.5) 07/18/22 17:18 Total Bilirubin 0.2 mg/dL (0.15-1.2) 07/18/22 17:18 AST 33 U/L (0-40) 07/18/22 17:18 ALT 9 U/L (0-41) 07/18/22 17:18 Alkaline Phosphatase 69 U/L (40-130) 07/18/22 17:18 Total Protein 7.1 g/dL (6.6-8.7) 07/18/22 17:18 Albumin 3.6 g/dL (3.5-5.2) 07/18/22 17:18 Globulin 3.5 g/dL (1.3-4.6) 07/18/22 17:18 Urine Color Yellow (Yellow) 07/18/22 18:10 Urine Appearance Clear (CLEAR) 07/18/22 18:10 Urine pH 6.5 (5-7) 07/18/22 18:10 Ur Specific Dorsey 1.005 (1.005-1.030) 07/18/22 18:10 Urine Protein Neg (Negative) 07/18/22 18:10 Urine Glucose (UA) Norm (Normal) 07/18/22 18:10 Urine Ketones Negative (Negative) 07/18/22 18:10 Urine Blood Neg (Negative) 07/18/22 18:10 Urine Nitrate Negative (Negative) 07/18/22 18:10 Urine Bilirubin Neg (Negative) 07/18/22 18:10 Urine Urobilinogen Norm mg/dL (Negative) 07/18/22 18:10 Ur Leukocyte Esterase Negative (Negative) 07/18/22 18:10 Discharge Plan Discharge Patient Disposition: Home Clinical Impression: Hypotension due to drugs Condition: Stable Prescriptions: No Action zinc gluconate 30 mg tablet 30 mg PO DAILY aspirin 325 mg tablet 325 mg PO DAILY carvedilol 6.25 mg tablet 6.25 mg PO BID Qty: 180 2RF gabapentin 800 mg tablet 800 mg PO BID 90 Days Qty: 180 1RF metformin 1,000 mg tablet 1,000 mg PO BID 90 Days Qty: 180 3RF Levemir U-100 Insulin 100 unit/mL solution See Rx Instructions .ROUTE .COMPLEX Qty: 100 3RF Dose Instruction: INJECT 1 MILLILITER SUBCUTANEOUSLY DAILY Rx Instructions: INJECT 1 MILLILITER SUBCUTANEOUSLY QPM give pt 6 vials this last him 3 months. lisinopril 10 mg tablet See Rx Instructions .ROUTE .COMPLEX Qty: 90 0RF Dose Instruction: TAKE 1 TABLET BY MOUTH DAILY Rx Instructions: TAKE 1 TABLET BY MOUTH DAILY amlodipine 10 mg tablet See Rx Instructions .ROUTE .COMPLEX Qty: 90 0RF Dose Instruction: TAKE 1 TABLET BY MOUTH DAILY Rx Instructions: TAKE 1 TABLET BY MOUTH DAILY (DME) OneTouch Ultra Test Strip See Rx Instructions .ROUTE .COMPLEX Qty: 400 0RF Dose Instruction: USE TO TEST BLOOD SUGAR 5 TIMES DAILY. Rx Instructions: USE TO TEST BLOOD SUGAR 5 TIMES DAILY. (DME) lancets [BD Ultra Fine Lancets] 33 gauge misc See Rx Instructions .Route Qty: 100 0RF Rx Instructions: test blood sugar 3 times daily potassium chloride 10 mEq tablet extended release 10 meq PO DAILY Qty: 90 0RF fluticasone propionate 50 mcg/actuation spray,suspension See Rx Instructions .ROUTE .COMPLEX Qty: 16 0RF Dose Instruction: SHAKE LIQUID AND USE 1 SPRAY IN EACH NOSTRIL TWICE DAILY FOR 10 DAYS Rx Instructions: SHAKE LIQUID AND USE 1 SPRAY IN EACH NOSTRIL TWICE DAILY FOR 10 DAYS chlorthalidone 50 mg tablet See Rx Instructions .ROUTE .COMPLEX Qty: 90 0RF Dose Instruction: TAKE 1 TABLET BY MOUTH DAILY Rx Instructions: TAKE 1 TABLET BY MOUTH DAILY tizanidine 4 mg tablet See Rx Instructions .ROUTE .COMPLEX Qty: 180 0RF Dose Instruction: TAKE 2 TABLETS BY MOUTH TWICE DAILY NEEDED FOR MILD PAIN Rx Instructions: TAKE 2 TABLETS BY MOUTH TWICE DAILY NEEDED FOR MILD PAIN gemfibrozil 600 mg tablet 600 mg PO BID rosuvastatin 20 mg tablet 20 mg PO DAILY insulin aspart U-100 100 unit/mL solution See Rx Instructions .ROUTE .COMPLEX Qty: 60 1RF Dose Instruction: INJECT 30 UNITS UNDER THE SKIN UP TO THREE TIMES DAILY WITH MEALS Rx Instructions: INJECT 3 UNITS UNDER THE SKIN UP TO THREE TIMES DAILY WITH MEALS Discharge Orders: Discharge ED (Routine); Ordered 07/18/22 Ordered By: Francisco Siddiqui Referrals: Maged Bustamante FNP [Primary Care Provider] - Patient Instructions: Hypotension (ED) Activity Restrictions/Additional Instructions: As we discussed, decrease your chlorthalidone dosage from 50mg to 25 mg (1/2 tablet) daily. Continue to monitor your blood pressures as you have been. Report those numbers to your doctor this coming week return for worsening symptoms including weakness, altered mental status, other concerns Coding Level of Care Code ED Glass Forming Engineer for Jagruti Potter
[2022-07-18 17:24] LABS: Basophils # 0.1 10^3/uL (0.0-0.1); Basophils % 1.2 %; Eosinophils # 0.1 10^3/uL (0.0-0.8); Eosinophils % 2.7 %; Hematocrit 46.6 % (42.0-52.0); Hemoglobin 14.8 g/dL (11.7-16.6); Lymphocytes # 1.2 10^3/uL (0.8-4.8); Lymphocytes % 24.8 %; Mean Corpuscular HGB Conc 31.8 g/dL (30.0-36.0); Mean Corpuscular Hemoglobin 29.7 pg (28.0-34.0); Mean Corpuscular Volume 93.4 fl (80-94); Mean Platelet Volume 9.1 fL (7.4-10.4); Monocytes # 0.5 10^3/uL (0.2-0.9); Monocytes % 9.2 %; Neutrophils # 3.01 10^3/uL (1.8-7.7); Neutrophils % 61.9 %; Nucleated Red Blood Cells % 0 %; Platelet Count 167 10^3/cmm (130-400); Red Blood Count 4.99 10^6/uL (4.1-5.3); Red Cell Distribution Width 13.4 % (12.1-15.1); White Blood Count 4.9 10^3/uL (4.0-10.0)
[2022-07-18 17:28] VITALS: BP 131/72; PULSE 91; RESP 14; O2SAT 98
[2022-07-18 17:47] LABS: Alanine Aminotransferase 9 U/L (0-41); Albumin Level 3.6 g/dL (3.5-5.2); Alkaline Phosphatase 69 U/L (40-130); Anion Gap 17.2 (5-19); Aspartate Amino Transferase 33 U/L (0-40); Blood Urea Nitrogen 18 mg/dL (8-23); Calcium 8.5 mg/dL (8.5-10.5); Carbon Dioxide 27 mmol/L (22-29); Chloride 98 mmol/L (98-107); Globulin 3.5 g/dL (1.3-4.6); Glucose 103 mg/dL (65-115); Osmolality Calculated 290 mOsm/kg (285-295); Potassium 3.2 mmol/L (3.5-5.1); Sodium 139 mmol/L (136-145); Total Bilirubin 0.2 mg/dL (0.15-1.2); Total Protein 7.1 g/dL (6.6-8.7)
[2022-07-18 18:11] VITALS: BP 145/77; PULSE 91; RESP 14; O2SAT 100
[2022-07-18 18:18] LABS: Add Urine Microscopic? NO; Charge for UA Resulting for Rev
[2022-07-18 18:30] LABS: Bilirubin Urine Neg (Negative); Blood Urine Neg (Negative); Glucose Urine UA Norm (Normal); Ketones Urine Negative (Negative); Leukocyte Esterase Urine Negative (Negative); Nitrate Urine Negative (Negative); Protein Urine Neg (Negative); Specific Gravity, Urine 1.005 (1.005-1.030); Urine Appearance Clear (CLEAR); Urine Color Yellow (Yellow); Urobilinogen Urine Norm (Negative); pH Urine 6.5 (5-7)
[2022-07-18 19:36] VITALS: BP 146/70; PULSE 64; RESP 16; O2SAT 99
[2022-07-18 19:38] VITALS: BP 146/70; PULSE 64; RESP 16; TEMP 36.3; O2SAT 99
== END 2022-07-18 19:39 | disposition home or self-care (01) ==
PROVIDERS: Emergency Medicine; Emergency Provider Emergency Medicine; PCP Registered Nurse
DX: I95.2 Hypotension due to drugs (principal); T46.5X5A Adverse effect of other antihypertensive drugs, initial encounter
CPT/HCPCS: 80053; 81003; 85025; 99283

== ENCOUNTER → 2022-07-26 13:00 | Outpatient (BNVA) | payer MEDICARE, SELFPAY | PROVIDERS: PCP Registered Nurse; Visit Provider Nurse Practitioner Family | DX: I95.9 Hypotension, unspecified (principal) | CPT/HCPCS: 99213 ==

== ENCOUNTER → 2022-10-15 11:39 | Outpatient (BNVA) | payer MEDICARE, SELFPAY | PROVIDERS: PCP Registered Nurse; Visit Provider Registered Nurse | DX: E11.9 Type 2 diabetes mellitus without complications (principal) | CPT/HCPCS: 80053; 83036 ==

== ENCOUNTER → 2022-10-22 08:52 | Outpatient (BNVA) | payer MEDICARE, SELFPAY | PROVIDERS: PCP Registered Nurse; Visit Provider Internal Medicine | DX: I10 Essential (primary) hypertension (principal); G47.33 Obstructive sleep apnea (adult) (pediatric); E11.69 Type 2 diabetes mellitus with other specified complication; E78.5 Hyperlipidemia, unspecified; Z79.4 Long term (current) use of insulin; I73.9 Peripheral vascular disease, unspecified | CPT/HCPCS: 99214 ==

== ENCOUNTER → 2023-02-22 09:42 | Outpatient (BNVA) | payer MEDICARE, SELFPAY | PROVIDERS: PCP Registered Nurse; Visit Provider Podiatrist Foot & Ankle Surgery | DX: E11.42 Type 2 diabetes mellitus with diabetic polyneuropathy (principal); B35.3 Tinea pedis; L60.3 Nail dystrophy; Z79.4 Long term (current) use of insulin; G62.9 Polyneuropathy, unspecified; I73.9 Peripheral vascular disease, unspecified; Z79.84 Long term (current) use of oral hypoglycemic drugs | CPT/HCPCS: 11721; 99203 ==

== ENCOUNTER 2023-02-28 11:40 | Oncology outpatient (recurring) (ONCR) | payer MEDICARE, SELFPAY ==
[2023-02-28 12:14] VITALS: BP 145/75; PULSE 70; TEMP 36.4; O2SAT 99
[2023-02-28 12:37] LABS: Basophils # 0.1 10^3/uL (0.0-0.1); Basophils % 1.1 %; Eosinophils # 0.1 10^3/uL (0.0-0.8); Eosinophils % 2.5 %; Hematocrit 47.4 % (37-53); Lymphocytes # 0.9 10^3/uL (0.8-4.8); Lymphocytes % 20.5 %; Mean Corpuscular HGB Conc 32.3 g/dL (30-55); Mean Corpuscular Hemoglobin 29.4 pg (27-33); Mean Corpuscular Volume 91.2 fl (82-101); Mean Platelet Volume 9.4 fL (7.4-10.4); Monocytes # 0.4 10^3/uL (0.2-0.9); Monocytes % 9.9 %; Neutrophils # 2.91 10^3/uL (1.8-7.7); Neutrophils % 65.8 %; Nucleated Red Blood Cells % 0 %; Platelet Count 181 10^3/cmm (157-399); Red Cell Distribution Width 13.5 % (12.1-15.1); White Blood Count 4.43 10^3/uL (3.29-11.43)
--- NOTE | 2023-02-28 12:52 | XR_ITS ---
WS: [id number] Exam: XR hip RT 2-3V wo/w pel* [id number] Date/Time of Exam: 02/28/2023 12:52 PM Reason For Exam: right hip pain after injury Comparison 02/02/2016. No acute fracture or dislocation. Mild degenerative narrowing of the joint compartment. Eburnation of the acetabular rim. Normal soft tissues. Very little change since the last study. IMPRESSION: 1. Degenerative changes of the RIGHT hip which are stable since the last exam.
[2023-02-28 12:55] LABS: Alanine Aminotransferase 9 U/L (0-41); Albumin Level 3.8 g/dL (3.5-5.2); Alkaline Phosphatase 84 U/L (40-130); Anion Gap 15.3 (5-19); Aspartate Amino Transferase 33 U/L (0-40); Blood Urea Nitrogen 13 mg/dL (8-23); Calcium 9.3 mg/dL (8.5-10.5); Carbon Dioxide 33 mmol/L (22-29); Chloride 94 mmol/L (98-107); Globulin 3.8 g/dL (1.3-4.6); Glucose 188 mg/dL (65-115); Immunoglobulin IGA 108 mg/dL (70-400); Immunoglobulin IGG 1405 mg/dL (700-1600); Immunoglobulin IGM 26 mg/dL (40-230); Osmolality Calculated 293 mOsm/kg (285-295); Potassium 3.3 mmol/L (3.5-5.1); Sodium 139 mmol/L (136-145); Total Bilirubin 0.5 mg/dL (0.15-1.2); Total Protein 7.6 g/dL (6.6-8.7)
[2023-03-01 09:05] LABS: PROTEIN, TOTAL 7.2 g/dL (6.1-8.1)
[2023-03-01 12:19] LABS: KAPPA LIGHT CHAIN, FREE, SERUM 130.7 mg/L (3.3-19.4); KAPPA/LAMBDA LIGHT CHAINS FREE 9.98 (0.26-1.65); LAMBDA LIGHT CHAIN, FREE, SERU 13.1 mg/L (5.7-26.3)
[2023-03-01 14:45] LABS: ABNORMAL PROTEIN BAND 1 0.2 g/dL (NONE DETECTED); ALBUMIN 3.8 g/dL (3.8-4.8); ALPHA 1 GLOBULIN 0.3 g/dL (0.2-0.3); ALPHA 2 GLOBULIN 0.9 g/dL (0.5-0.9); BETA 1 GLOBULIN 0.5 g/dL (0.4-0.6); BETA 2 GLOBULIN 0.4 g/dL (0.2-0.5); GAMMA GLOBULIN 1.3 g/dL (0.8-1.7)
== END 2023-03-16 23:59 | disposition home or self-care (01) ==
PROVIDERS: PCP Registered Nurse; Visit Provider Internal Medicine Medical Oncology
DX: D47.2 Monoclonal gammopathy (principal); G62.9 Polyneuropathy, unspecified; Z95.0 Presence of cardiac pacemaker; Z79.899 Other long term (current) drug therapy
CPT/HCPCS: 36415; 73502; 80053; 82784; 83883; 84155; 84165; 85025; 99214

== ENCOUNTER → 2023-03-02 13:24 | Outpatient (BNVA) | payer MEDICARE, SELFPAY | PROVIDERS: PCP Registered Nurse; Visit Provider Registered Nurse | DX: C90.00 Multiple myeloma not having achieved remission (principal) | CPT/HCPCS: 84156; 84166 ==

== ENCOUNTER → 2023-04-19 09:25 | Outpatient (BNVA) | payer MEDICARE, SELFPAY | PROVIDERS: PCP Registered Nurse; Visit Provider Registered Nurse | DX: N40.0 Benign prostatic hyperplasia without lower urinary tract symptoms (principal); E11.69 Type 2 diabetes mellitus with other specified complication; E78.5 Hyperlipidemia, unspecified; Z79.4 Long term (current) use of insulin | CPT/HCPCS: 80053; 83036; 84153 ==

== ENCOUNTER → 2023-04-21 10:47 | Outpatient (BNVA) | payer MEDICARE, SELFPAY | PROVIDERS: PCP Registered Nurse; Visit Provider Nurse Practitioner Family | DX: I10 Essential (primary) hypertension (principal) | CPT/HCPCS: 99213 ==

== ENCOUNTER 2023-04-27 06:28 | Outpatient (CLI) | payer MEDICARE, SELFPAY ==
--- NOTE | 2023-04-27 07:15 | US_ITS ---
WS: [id number] Complete ABDOMINAL ULTRASOUND HISTORY: R19.03 - Right lower quadrant abdominal swelling, mass an... COMPARISON: None available. Liver: 18.7 cm in length. Mildly enlarged liver with coarse echotexture. Attenuation of the ultrasoun d from hepatic steatosis. No mass. Portal Vein: Normal hepatopetal flow with monophasic waveform. Gallbladder: Normally distended gallbladder with no stones or wall thickening. CBD: 0.3 cm Pancreas: Poorly visualized. Obscured by body habitus. Right kidney: 12.7 cm x 5.8 x 5.9 cm. Cortex:1.1 cm. Normal size kidney with no obstruction. Several cortical cysts are identified. The largest from the m id kidney measures 4.2 x 4.7 x 3.7 cm. No solid mass or obstruction. Left kidney: 12.6 cm x 4.8 cm x 6.5 cm. Cortex: 1.3 cm. Normal size and echogenicity. No hydronephrosis or mass. Spleen: 12.0 cm. Normal size and echogenicity. Aorta and IVC: Unremarkable abdominal aorta and IVC. Ultrasound of the LEFT lower quadrant in the area of reported mass demonstrates no abnormality by ult rasound. Impression: 1. Normal gallbladder. 2. Multiple simple RIGHT renal cysts. The largest measures 4.2 x 4.7 x 3.7 cm. 3. Study is limited by body habitus. 4. Mild hepatic steatosis and hepatomegaly. 5. No abnormality noted by ultrasound in the LEFT lower quadrant as directed by the patient.
== END 2023-04-27 06:29 | disposition home or self-care (01) ==
LOC: RAD 06:28
PROVIDERS: PCP Registered Nurse; Visit Provider Registered Nurse
DX: R19.03 Right lower quadrant abdominal swelling, mass and lump (principal); Z12.11 Encounter for screening for malignant neoplasm of colon; N28.1 Cyst of kidney, acquired; K76.0 Fatty (change of) liver, not elsewhere classified; R16.0 Hepatomegaly, not elsewhere classified
CPT/HCPCS: 76700; 99204

== ENCOUNTER 2023-04-29 14:23 | Emergency (ER) | payer MEDICARE, SELFPAY ==
[2023-04-29 14:28] VITALS: BP 176/94; PULSE 73; RESP 17; TEMP 36.4; O2SAT 95
--- NOTE | 2023-04-29 14:43 | W.ED.WOUNDLC ---
HPI - Wound/Laceration General: Chief Complaint: Extremity Problem,Nontraumatic Stated Complaint: rt lower ext. bleeding Time Seen by Provider: 04/29/23 14:35 Source: EMS Mode of arrival: EMS Limitations: no limitations History of Present Illness: Patient is a 73-year-old male who presents to the ED today via EMS for evaluation of a bleeding varicose vein that began just prior to arrival after he was bending over to put on his shoes. Patient states he held pressure to the area but could not get to stop thus prompting him to call EMS. Upon my initial examination, dressing from EMS was removed and bleeding area has subsided. He will be watched/monitored for return. Onset (ago): hour(s) Extremity Location: Right: lower leg Place: home Patient tetanus UTD: Yes Context: accidental Associated symptoms: Reports no associated symptoms Treatments prior to arrival: bandage Review of Systems Skin/Breast: Reports: other (varicose vein bleed) [facility] ED PFSH: Medical History Degenerative joint disease of spine GERD (gastroesophageal reflux disease) Monoclonal gammopathy Pacemaker Enrolled in chronic care management Neuropathy CARMEN (obstructive sleep apnea) Obesity Multiple sclerosis Hyperlipidemia associated with type 2 diabetes mellitus Essential hypertension Surgical History Hx of unilateral orchiectomy Left orchiectomy for testicular torsion S/P insertion of spinal cord stimulator S/P placement of cardiac pacemaker S/P hemorrhoidectomy Family History Father CAD (coronary artery disease) Mother CAD (coronary artery disease) Hypertension Social History Smoking and tobacco/nicotine status: never used tobacco/nicotine Alcohol intake: never Substance/Drug Use: never Adopted: No Caregiver/support person: No Lives independently: No Household members: spouse Marital status: Current occupational status: disabled Sexually active: Yes Do you think of yourself as: Straight/Heterosexual Current gender identity: Male Physical Exam Const: COMMON NORMALS: no acute distress, patient oriented x3, no limitations, alert and well nourished Extremity: RIGHT LOWER EXTREMITY: Yes lower leg OTHER: small 2mm area of hemostasis overlying a small varicose vein noted to R anterior lower leg Neuro: COMMON NORMALS: patient oriented x3 SENSORIUM/ORIENTATION: Yes alert Skin: NARRATIVE SKIN EXAM: see above Course Vital Signs: Vital signs: Vital Signs Temperature 97.6 F 04/29/23 14:28 Pulse Rate 73 04/29/23 14:28 Respiratory Rate 17 04/29/23 14:28 Blood Pressure 176/94 04/29/23 14:28 Pulse Oximetry 95 04/29/23 14:28 Oxygen Delivery Me thod Room Air 04/29/23 14:28 MDM - Wound/Laceration Medical Decision Making Bleeding had subsided upon arrival to the emergency department. Patient was watched over half an hour no further bleeding resumed. Will dress wound and recommend he leave dressing on for the next 24 hours. Instructions given at home if bleeding resumes. Return precautions discussed. Medical Records I reviewed the patient's medical records. No radiology studies performed this visit Discharge Plan Discharge Patient Disposition: Home Clinical Impression: Bleeding from varicose vein Condition: Stable Prescriptions: No Action zinc gluconate 30 mg tablet 30 mg PO DAILY aspirin 325 mg tablet 325 mg PO DAILY chlorthalidone 50 mg tablet 50 mg PO DAILY Qty: 90 3RF Hold Instructions: Doctor's Order carvedilol 12.5 mg tablet 12.5 mg PO BID Qty: 180 3RF (DME) diabetic shoes with 3 inserts See Rx Instructions .Route .MEDSUPPLY Qty: 1 0RF Rx Instructions: As directed to the shoe sonya ketoconazole 2 % cream 1 applic topical BID Qty: 60 0RF Levemir U-100 Insulin 100 unit/mL solution See Rx Instructions .ROUTE .COMPLEX Dose Instruction: INJECT 1 MILLILITER SUBCUTANEOUSLY DAILY Rx Instructions: INJECT 60 units SUBCUTANEOUSLY QPM give pt 6 vials this last him 3 months. lisinopril 10 mg tablet 10 mg PO BID Qty: 180 3RF GlucaGen HypoKit 1 mg recon soln 1 mg SUBCUT Q20M PRN (Reason: hypoglycemia) 30 Days Qty: 3 1RF Rx Instructions: until target blood sugar attained tizanidine 4 mg tablet See Rx Instructions .ROUTE .COMPLEX Qty: 180 0RF Dose Instruction: TAKE 2 TABLETS BY MOUTH TWICE DAILY NEEDED FOR MILD PAIN Rx Instructions: TAKE 2 TABLETS BY MOUTH TWICE DAILY NEEDED FOR MILD PAIN insulin aspart U-100 100 unit/mL solution See Rx Instructions .ROUTE .COMPLEX 90 Days Qty: 10 0RF Dose Instruction: INJECT 30 UNITS UNDER THE SKIN UP TO THREE TIMES DAILY WITH MEALS Rx Instructions: INJECT 3 UNITS UNDER THE SKIN UP TO THREE TIMES DAILY WITH MEALS gemfibrozil 600 mg tablet See Rx Instructions .ROUTE .COMPLEX Qty: 180 0RF Dose Instruction: TAKE 1 TABLET BY MOUTH TWICE DAILY Rx Instructions: TAKE 1 TABLET BY MOUTH TWICE DAILY gabapentin 800 mg tablet See Rx Instructions .ROUTE .COMPLEX Qty: 180 0RF Dose Instruction: TAKE 1 TABLET BY MOUTH TWICE DAILY Rx Instructions: TAKE 1 TABLET BY MOUTH TWICE DAILY rosuvastatin 20 mg tablet See Rx Instructions .ROUTE .COMPLEX Qty: 90 0RF Dose Instruction: TAKE 1 TABLET BY MOUTH DAILY Rx Instructions: TAKE 1 TABLET BY MOUTH DAILY metformin 1,000 mg tablet See Rx Instructions .ROUTE .COMPLEX Qty: 180 0RF Dose Instruction: TAKE 1 TABLET BY MOUTH TWICE DAILY Rx Instructions: TAKE 1 TABLET BY MOUTH TWICE DAILY potassium chloride 10 mEq tablet extended release See Rx Instructions .ROUTE .COMPLEX Qty: 90 0RF Dose Instruction: TAKE 1 TABLET BY MOUTH DAILY Rx Instructions: TAKE 1 TABLET BY MOUTH DAILY (DME) OneTouch Ultra Test Strip See Rx Instructions .ROUTE .COMPLEX Qty: 400 0RF Dose Instruction: USE TO TEST BLOOD SUGAR FIVE TIMES DAILY Rx Instructions: USE TO TEST BLOOD SUGAR FIVE TIMES DAILY (DME) lancets [OneTouch Delica Plus Lancet] 33 gauge misc See Rx Instructions .ROUTE .COMPLEX Qty: 100 0RF Dose Instruction: USE TO TEST BLOOD SUGAR THREE TIMES DAILY Rx Instructions: USE TO TEST BLOOD SUGAR THREE TIMES DAILY tamsulosin 0.4 mg capsule 0.4 mg PO DAILY 30 Days Qty: 30 0RF Rx Instructions: take at night amlodipine 2.5 mg tablet 2.5 mg PO DAILY Qty: 180 3RF Rx Instructions: may take additional doses as needed for high BP Discharge Orders: Discharge ED (Routine); Ordered 04/29/23 Ordered By: Heidi Esteban Referrals: Maged Bustamante FNP [Primary Care Provider] - Activity Restrictions/Additional Instructions: As we discussed your wound has been bandaged here. Do not mess with wound or remove bandage over the next 24 hours. If bleeding resumes, elevate your leg, apply ice to the area, and apply firm pressure for 20 to 30 minutes. If you still cannot get bleeding to stop you may return to the emergency department. Coding Level of Care Code ED Laundry Tub Maker for Jagruti Potter
[2023-04-29 15:42] VITALS: PULSE 75; O2SAT 95
== END 2023-04-29 16:04 | disposition home or self-care (01) ==
PROVIDERS: Emergency Provider Physician Assistant; PCP Registered Nurse
DX: I83.891 Varicose veins of right lower extremity with other complications (principal); Z79.82 Long term (current) use of aspirin; Z79.4 Long term (current) use of insulin; Z79.84 Long term (current) use of oral hypoglycemic drugs; Z95.0 Presence of cardiac pacemaker; G35 Multiple sclerosis; E78.5 Hyperlipidemia, unspecified; I10 Essential (primary) hypertension; E11.9 Type 2 diabetes mellitus without complications
CPT/HCPCS: 99283

== ENCOUNTER → 2023-05-02 09:32 | Outpatient (BNVA) | payer MEDICARE, SELFPAY | PROVIDERS: PCP Registered Nurse; Visit Provider Podiatrist Foot & Ankle Surgery | DX: L60.3 Nail dystrophy (principal); Z79.4 Long term (current) use of insulin; G62.9 Polyneuropathy, unspecified; I73.9 Peripheral vascular disease, unspecified; B35.3 Tinea pedis; E11.42 Type 2 diabetes mellitus with diabetic polyneuropathy; Z79.84 Long term (current) use of oral hypoglycemic drugs | CPT/HCPCS: 11721 ==

== ENCOUNTER → 2023-07-04 09:42 | Outpatient (BNVA) | payer MEDICARE, SELFPAY | PROVIDERS: PCP Registered Nurse; Visit Provider Podiatrist Foot & Ankle Surgery | DX: L60.3 Nail dystrophy (principal); Z79.4 Long term (current) use of insulin; G62.9 Polyneuropathy, unspecified; I73.9 Peripheral vascular disease, unspecified; B35.3 Tinea pedis; E11.42 Type 2 diabetes mellitus with diabetic polyneuropathy; Z79.84 Long term (current) use of oral hypoglycemic drugs | CPT/HCPCS: 11721; 99213 ==

== ENCOUNTER 2023-07-12 18:25 | Inpatient (IN) | payer MEDICARE, SELFPAY ==
[2023-07-12 18:32] VITALS: BP 152/69; PULSE 74; RESP 16; TEMP 36.7; O2SAT 96; BMI 41.0
[2023-07-12 18:36] LABS: Glucose Point of Care 72 mg/dL (70-110)
[2023-07-12 18:39] VITALS: RESP 18
[2023-07-12 18:57] LABS: Basophils % 0.5 %; Eosinophils # 0.1 10^3/uL (0.0-0.8); Hematocrit 44.3 % (37-53); Lymphocytes # 0.9 10^3/uL (0.8-4.8); Lymphocytes % 11.3 %; Mean Corpuscular HGB Conc 32.3 g/dL (30-55); Mean Corpuscular Hemoglobin 30.2 pg (27-33); Mean Corpuscular Volume 93.7 fl (82-101); Monocytes # 0.6 10^3/uL (0.2-0.9); Monocytes % 6.7 %; Neutrophils # 6.56 10^3/uL (1.8-7.7); Neutrophils % 80.3 %; Nucleated Red Blood Cells % 0 %; Platelet Count 163 10^3/cmm (157-399); Red Blood Count 4.73 10^6/uL (3.85-5.65); Red Cell Distribution Width 13.4 % (12.1-15.1); White Blood Count 8.17 10^3/uL (3.29-11.43)
--- NOTE | 2023-07-12 19:09 | W.ED.WEAKNES ---
Documented by User: JOEY Calderon 07/12/23 20:21 HPI - Weakness General: Chief complaint: Weakness Stated complaint: Low BS Time Seen by Provider: 07/12/23 18:35 Source: patient and family Mode of arrival: EMS Limitations: no limitations History of Present Illness: Patient is a 73-year-old male who is brought to the emergency department by ambulance due to low blood sugar. Per family in the room, patient had an episode of confusion while on the phone, in which family had a neighbor checked on him. Upon checking he was very loud and became violent, and was found to have a blood sugar of 26. Ambulance was called and patient was given 30 of dextrose upon transfer. In the emergency department blood sugars brought up to 72. Patient's last A1c was 6.1. Family does note that he gets occasionally loud and violent like this and blood sugar is always found to be low. She states that he thinks he has not been eating much today and/or has been taking too much insulin as he has been self-medicating recently, whereas she normally handles this. Currently patient is asymptomatic and is not complaining of anything. He is reportedly at baseline mentation. No complaints of chest pain, breathing difficulties, or other symptoms to note at this time. Onset (ago): hour(s) Duration: now resolved Context: other (Low blood sugar) Associated symptoms: Reports confusion; Denies chest pain, chills, dysuria, fever(s), headache(s), nausea or vomiting Review of Systems General: Reports: 10 or more systems reviewed and unremarkable except in HPI and below Const: Reports: other (Low blood sugar); Denies: fever(s), chills or fatigue Eyes: Denies: change in vision ENMT: Denies: throat pain, ear or mastoid pain or nasal discharge Card: Denies: chest pain, palpitations, swelling of feet/ankles or lightheadedness Resp: Denies: dyspnea, productive cough or wheezing GI: Denies: abdominal pain, nausea, vomiting, diarrhea or constipation : Denies: flank pain, difficulty urinating, dysuria or urinary frequency Musc: Denies: neck pain, back pain or joint pain Skin/Breast: Denies: rash Neuro: Reports: confusion and behavioral changes; Denies: headache(s), numbness in extremities or weakness in extremities PFSH ED PFSH: Medical History (Updated 07/15/23 @ 00:02 by LAVERNE Galvez) Diabetes mellitus type 2 with complications Microscopic hematuria Right leg swelling Hypoglycemia Decreased hearing of both ears Myeloma Degenerative joint disease of spine GERD (gastroesophageal reflux disease) Monoclonal gammopathy Pacemaker Enrolled in chronic care management Neuropathy CARMEN (obstructive sleep apnea) Obesity Multiple sclerosis Hyperlipidemia associated with type 2 diabetes mellitus Essential hypertension Surgical History (Updated 07/12/23 @ 20:28 by Jason Werner MD) Hx of colonoscopy unknown when completed Hx of unilateral orchiectomy Left orchiectomy for testicular torsion S/P insertion of spinal cord stimulator S/P placement of cardiac pacemaker S/P hemorrhoidectomy Family History Father CAD (coronary artery disease) Mother CAD (coronary artery disease) Hypertension Social History Smoking and tobacco/nicotine status: never used tobacco/nicotine Alcohol intake: never Substance/Drug Use: never Adopted: No Caregiver/support person: No Lives independently: No Household members: spouse Marital status: Current occupational status: disabled Sexually active: Yes Do you think of yourself as: Straight/Heterosexual Current gender identity: Male Physical Exam Const: COMMON NORMALS: no acute distress, patient oriented x3 and no limitations GENERAL APPEARANCE: cooperative, comfortable and well developed NUTRITIONAL APPEARANCE: obese ORIENTATION/CONSCIOUSNESS: Yes awake, Yes oriented to person, Yes oriented to place and Yes oriented to time HENMT: COMMON NORMALS: normocephalic, atraumatic and hearing grossly normal bilaterally HEAD & SCALP: normocephalic and atraumatic Eye: COMMON NORMALS: Equal, round and reactive pupils present, EOMs intact bilaterally and conjunctivae normal CONJUNCTIVA: Yes conjunctivae normal PUPIL: Yes Equal, round and reactive pupils present Neck/C-Spine: COMMON NORMALS: full ROM, supple and no JVD Resp: COMMON NORMALS: normal respiratory effort, No retractions, No use of accessory muscles and clear to auscultation bilaterally AUSCULTATION: clear to auscultation bilaterally Cardio: COMMON NORMALS: no JVD, regular rate, regular rhythm, No clicks present (Cardio), No murmurs present (Cardio) and No rub (Cardio) RATE: regular rate RHYTHM: regular rhythm GI: COMMON NORMALS: Normal to inspection, nondistended, normoactive bowel sounds present, Soft to palpation and non-tender INSPECTION: Yes central obesity AUSCULTATION: Yes normoactive bowel sounds PALPATION: Yes Soft to palpation RECTAL EXAM: Yes deferred : COMMON NORMALS: Yes no CVA tenderness BLADDER/KIDNEY EXAM: Yes no CVA tenderness Back/Pelvis: COMMON NORMALS: no CVA tenderness, thoracic and lumbar spine normal to inspection, no thoracic nor lumbar tenderness and thoraco-lumbar ROM normal Extremity: COMMON NORMALS: normal to inspection, full ROM and capillary refill normal Neuro: COMMON NORMALS: patient oriented x3, CN's II-XII intact bilaterally, moves all extremities, no focal motor deficits and no sensory deficits noted SENSORIUM/ORIENTATION: Yes oriented to person, Yes oriented to place and Yes oriented to time Psych: COMMON NORMALS: mental status grossly normal and Normal thought process present THOUGHT PROCESS: Normal thought process present Skin: COMMON NORMALS: no rashes or lesions noted GENERAL SKIN EXAM: no rashes or lesions noted Course Vital Signs: Vital signs: Vital Signs Temperature 97.9 F 07/14/23 11:24 Pulse Rate 65 07/14/23 11:24 Respiratory Rate 16 07/14/23 11:24 Blood Pressure 172/90 07/14/23 11:24 Pulse Oximetry 93 07/14/23 11:24 Oxygen Delivery Me thod Room Air 07/14/23 11:24 Fraction of Inspir ed Oxygen 21 07/12/23 23:23 MDM - Weakness Medical Decision Making Patient brought into the emergency department by ambulance due to low blood sugar. Family had stated history of same, with similar behavioral changes associated with the low blood sugar. Initially his blood sugar read in the 30s for EMS, was given 30 of dextrose that brought it up to 72 in the emergency department. However CBC revealed his blood sugar was back down to 36, and was started with an IV bolus of D10. This was brought up to 141. I spoke with hospitalist, Dr. Werner, who will see patient. Pending admission at this time. Lab Data 07/14/23 04:16 07/14/23 04:16 Radiology Impressions Abdomen/Pelvis CT 07/14/23 12:00 IMPRESSION: 1. Sigmoid diverticulosis. No evidence of acute diverticulitis. 2. Enlarged prostate. Recommend correlation PSA. Evidence of bladder outlet obstruction. 3. Large LEFT greater than RIGHT fat-containing inguinal hernias. No herniated bowel. 4. Distended stomach with fluid and food products. 5. No hydronephrosis in either kidney. 6. Incidental RIGHT greater than LEFT renal cysts. 7. Small RIGHT adrenal adenoma. 8. No other acute findings. Laboratory Results WBC 6.08 10^3/uL (3.29-11.43) 07/13/23 05:09 RBC 5.07 10^6/uL (3.85-5.65) 07/13/23 05:09 Hgb 15.30 g/dL (11.27-16.99) 07/13/23 05:09 Hct 50.3 % (37-53) 07/13/23 05:09 MCV 99.2 fl (82-101) D 07/13/23 05:09 MCH 30.2 pg (27-33) 07/13/23 05:09 MCHC 30.4 g/dL (30-55) D 07/13/23 05:09 RDW 13.5 % (12.1-15.1) 07/13/23 05:09 Plt Count 167 10^3/cmm (157-399) 07/13/23 05:09 MPV 9.7 fL (7.4-10.4) 07/13/23 05:09 Neut % (Auto) 70.7 % 07/13/23 05:09 Lymph % (Auto) 17.9 % 07/13/23 05:09 Nye % (Auto) 8.9 % 07/13/23 05:09 Eos % (Auto) 1.5 % 07/13/23 05:09 Baso % (Auto) 0.7 % 07/13/23 05:09 Neut # (Auto) 4.30 10^3/uL (1.8-7.7) 07/13/23 05:09 Lymph # (Auto) 1.1 10^3/uL (0.8-4.8) 07/13/23 05:09 Nye # (Auto) 0.5 10^3/uL (0.2-0.9) 07/13/23 05:09 Eos # (Auto) 0.1 10^3/uL (0.0-0.8) 07/13/23 05:09 Baso # (Auto) 0.0 10^3/uL (0.0-0.1) 07/13/23 05:09 Nucleated RBC % (auto) 0 % 07/13/23 05:09 Nucleated RBCs # 0.0 /100WBC 07/13/23 05:09 Sodium 141 mmol/L (136-145) 07/13/23 05:09 Potassium 3.4 mmol/L (3.5-5.1) L 07/13/23 05:09 Chloride 101 mmol/L (98-107) 07/13/23 05:09 Carbon Dioxide 27 mmol/L (22-29) 07/13/23 05:09 Anion Gap 16.4 (5-19) 07/13/23 05:09 BUN 18 mg/dL (8-23) 07/13/23 05:09 Creatinine 0.9 mg/dL (0.7-1.2) 07/13/23 05:09 GFR Calculation Not Reportable 07/13/23 05:09 Glucose 161 mg/dL (65-115) H 07/13/23 05:09 POC Glucose 150 mg/dL (70-110) H 07/13/23 05:58 Estimat Average Glucose 140 07/12/23 18:45 Hemoglobin A1c 6.5 % (4.0-6.0) H 07/12/23 18:45 Calculated Osmolality 297 mOsm/kg (285-295) H 07/13/23 05:09 Calcium 9.0 mg/dL (8.5-10.5) 07/13/23 05:09 Magnesium 1.3 mg/dL (1.7-2.3) L 07/12/23 18:45 Total Bilirubin 0.2 mg/dL (0.15-1.2) 07/12/23 18:45 AST 33 U/L (0-40) 07/12/23 18:45 ALT 9 U/L (0-41) 07/12/23 18:45 Alkaline Phosphatase 82 U/L (40-130) 07/12/23 18:45 Total Protein 7.1 g/dL (6.6-8.7) 07/12/23 18:45 Albumin 4.1 g/dL (3.5-5.2) 07/12/23 18:45 Globulin 3.0 g/dL (1.3-4.6) 07/12/23 18:45 Urine Color Yellow (Yellow) 07/12/23 18:45 Urine Appearance Clear (CLEAR) 07/12/23 18:45 Urine pH 6 (5-7) 07/12/23 18:45 Ur Specific Mallory 1.005 (1.005-1.030) 07/12/23 18:45 Urine Protein Trace (Negative) 07/12/23 18:45 Urine Glucose (UA) Norm (Normal) 07/12/23 18:45 Urine Ketones Negative (Negative) 07/12/23 18:45 Urine Blood 2+ (Negative) H 07/12/23 18:45 Urine Nitrate Negative (Negative) 07/12/23 18:45 Urine Bilirubin Neg (Negative) 07/12/23 18:45 Urine Urobilinogen Norm mg/dL (Negative) 07/12/23 18:45 Ur Leukocyte Esterase Negative (Negative) 07/12/23 18:45 Urine RBC 5-10 /hpf (0-2) H 07/12/23 18:45 Urine WBC 0-4 /hpf (0-5) H 07/12/23 18:45 Ur Squamous Epith Cells None /hpf (0-5) 07/12/23 18:45 Amorphous Sediment Not Reportable 07/12/23 18:45 Urine Bacteria None /hpf (NONE) 07/12/23 18:45 Hyaline Casts 0-4 /lpf H 07/12/23 18:45 Urine Mucus Trace /hpf 07/12/23 18:45 No radiology studies performed this visit Discharge Plan Discharge Patient Disposition: Placed in Observation Admit Provider: Jason Werner Clinical Impression: Hypoglycemia Coding Level of Care Code ED Vehicle Maintenance Supervisor for Chg Fwd Documented by User: Farshad Shearer DO 07/18/23 15:53 HPI - Weakness General: Chief complaint: Weakness Stated complaint: Low BS Time Seen by Provider: 07/12/23 18:35 [facility] ED PFS: Medical History (Updated 07/15/23 @ 00:02 by LAVERNE Galvez) Diabetes mellitus type 2 with complications Microscopic hematuria Right leg swelling Hypoglycemia Decreased hearing of both ears Myeloma Degenerative joint disease of spine GERD (gastroesophageal reflux disease) Monoclonal gammopathy Pacemaker Enrolled in chronic care management Neuropathy CARMEN (obstructive sleep apnea) Obesity Multiple sclerosis Hyperlipidemia associated with type 2 diabetes mellitus Essential hypertension Surgical History (Updated 07/12/23 @ 20:28 by Jason Werner MD) Hx of colonoscopy unknown when completed Hx of unilateral orchiectomy Left orchiectomy for testicular torsion S/P insertion of spinal cord stimulator S/P placement of cardiac pacemaker S/P hemorrhoidectomy Family History Father CAD (coronary artery disease) Mother CAD (coronary artery disease) Hypertension Social History Smoking and tobacco/nicotine status: never used tobacco/nicotine Alcohol intake: never Substance/Drug Use: never Adopted: No Caregiver/support person: No Lives independently: No Household members: spouse Marital status: Current occupational status: disabled Sexually active: Yes Do you think of yourself as: Straight/Heterosexual Current gender identity: Male Course Vital Signs: Vital signs: Vital Signs Temperature 97.9 F 07/14/23 11:24 Pulse Rate 65 07/14/23 11:24 Respiratory Rate 16 07/14/23 11:24 Blood Pressure 172/90 07/14/23 11:24 Pulse Oximetry 93 07/14/23 11:24 Oxygen Delivery Me thod Room Air 07/14/23 11:24 Fraction of Inspir ed Oxygen 21 07/12/23 23:23 MDM - Weakness Medical Decision Making Patient brought into the emergency department by ambulance due to low blood sugar. Family had stated history of same, with similar behavioral changes associated with the low blood sugar. Initially his blood sugar read in the 30s for EMS, was given 30 of dextrose that brought it up to 72 in the emergency department. However CBC revealed his blood sugar was back down to 36, and was started with an IV bolus of D10. This was brought up to 141. I spoke with hospitalist, Dr. Werner, who will see patient. Pending admission at this time. Chart reviewed Medical Records I reviewed the patient's medical records. Lab Data I reviewed the patient's lab results. 07/14/23 04:16 07/14/23 04:16 Radiology Impressions Abdomen/Pelvis CT 07/14/23 12:00 IMPRESSION: 1. Sigmoid diverticulosis. No evidence of acute diverticulitis. 2. Enlarged prostate. Recommend correlation PSA. Evidence of bladder outlet obstruction. 3. Large LEFT greater than RIGHT fat-containing inguinal hernias. No herniated bowel. 4. Distended stomach with fluid and food products. 5. No hydronephrosis in either kidney. 6. Incidental RIGHT greater than LEFT renal cysts. 7. Small RIGHT adrenal adenoma. 8. No other acute findings. Laboratory Results WBC 6.08 10^3/uL (3.29-11.43) 07/13/23 05:09 RBC 5.07 10^6/uL (3.85-5.65) 07/13/23 05:09 Hgb 15.30 g/dL (11.27-16.99) 07/13/23 05:09 Hct 50.3 % (37-53) 07/13/23 05:09 MCV 99.2 fl (82-101) D 07/13/23 05:09 MCH 30.2 pg (27-33) 07/13/23 05:09 MCHC 30.4 g/dL (30-55) D 07/13/23 05:09 RDW 13.5 % (12.1-15.1) 07/13/23 05:09 Plt Count 167 10^3/cmm (157-399) 07/13/23 05:09 MPV 9.7 fL (7.4-10.4) 07/13/23 05:09 Neut % (Auto) 70.7 % 07/13/23 05:09 Lymph % (Auto) 17.9 % 07/13/23 05:09 Nye % (Auto) 8.9 % 07/13/23 05:09 Eos % (Auto) 1.5 % 07/13/23 05:09 Baso % (Auto) 0.7 % 07/13/23 05:09 Neut # (Auto) 4.30 10^3/uL (1.8-7.7) 07/13/23 05:09 Lymph # (Auto) 1.1 10^3/uL (0.8-4.8) 07/13/23 05:09 Nye # (Auto) 0.5 10^3/uL (0.2-0.9) 07/13/23 05:09 Eos # (Auto) 0.1 10^3/uL (0.0-0.8) 07/13/23 05:09 Baso # (Auto) 0.0 10^3/uL (0.0-0.1) 07/13/23 05:09 Nucleated RBC % (auto) 0 % 07/13/23 05:09 Nucleated RBCs # 0.0 /100WBC 07/13/23 05:09 Sodium 141 mmol/L (136-145) 07/13/23 05:09 Potassium 3.4 mmol/L (3.5-5.1) L 07/13/23 05:09 Chloride 101 mmol/L (98-107) 07/13/23 05:09 Carbon Dioxide 27 mmol/L (22-29) 07/13/23 05:09 Anion Gap 16.4 (5-19) 07/13/23 05:09 BUN 18 mg/dL (8-23) 07/13/23 05:09 Creatinine 0.9 mg/dL (0.7-1.2) 07/13/23 05:09 GFR Calculation Not Reportable 07/13/23 05:09 Glucose 161 mg/dL (65-115) H 07/13/23 05:09 POC Glucose 150 mg/dL (70-110) H 07/13/23 05:58 Estimat Average Glucose 140 07/12/23 18:45 Hemoglobin A1c 6.5 % (4.0-6.0) H 07/12/23 18:45 Calculated Osmolality 297 mOsm/kg (285-295) H 07/13/23 05:09 Calcium 9.0 mg/dL (8.5-10.5) 07/13/23 05:09 Magnesium 1.3 mg/dL (1.7-2.3) L 07/12/23 18:45 Total Bilirubin 0.2 mg/dL (0.15-1.2) 07/12/23 18:45 AST 33 U/L (0-40) 07/12/23 18:45 ALT 9 U/L (0-41) 07/12/23 18:45 Alkaline Phosphatase 82 U/L (40-130) 07/12/23 18:45 Total Protein 7.1 g/dL (6.6-8.7) 07/12/23 18:45 Albumin 4.1 g/dL (3.5-5.2) 07/12/23 18:45 Globulin 3.0 g/dL (1.3-4.6) 07/12/23 18:45 Urine Color Yellow (Yellow) 07/12/23 18:45 Urine Appearance Clear (CLEAR) 07/12/23 18:45 Urine pH 6 (5-7) 07/12/23 18:45 Ur Specific Mallory 1.005 (1.005-1.030) 07/12/23 18:45 Urine Protein Trace (Negative) 07/12/23 18:45 Urine Glucose (UA) Norm (Normal) 07/12/23 18:45 Urine Ketones Negative (Negative) 07/12/23 18:45 Urine Blood 2+ (Negative) H 07/12/23 18:45 Urine Nitrate Negative (Negative) 07/12/23 18:45 Urine Bilirubin Neg (Negative) 07/12/23 18:45 Urine Urobilinogen Norm mg/dL (Negative) 07/12/23 18:45 Ur Leukocyte Esterase Negative (Negative) 07/12/23 18:45 Urine RBC 5-10 /hpf (0-2) H 07/12/23 18:45 Urine WBC 0-4 /hpf (0-5) H 07/12/23 18:45 Ur Squamous Epith Cells None /hpf (0-5) 07/12/23 18:45 Amorphous Sediment Not Reportable 07/12/23 18:45 Urine Bacteria None /hpf (NONE) 07/12/23 18:45 Hyaline Casts 0-4 /lpf H 07/12/23 18:45 Urine Mucus Trace /hpf 07/12/23 18:45 Discharge Plan Discharge Patient Disposition: Placed in Observation Admit Provider: Jason Werner Clinical Impression: Hypoglycemia Coding Level of Care Code ED Vehicle Maintenance Supervisor for Jagruti Potter
[2023-07-12 19:18] LABS: Alanine Aminotransferase 9 U/L (0-41); Albumin Level 4.1 g/dL (3.5-5.2); Alkaline Phosphatase 82 U/L (40-130); Anion Gap 14.2 (5-19); Aspartate Amino Transferase 33 U/L (0-40); Blood Urea Nitrogen 24 mg/dL (8-23); Calcium 8.6 mg/dL (8.5-10.5); Carbon Dioxide 33 mmol/L (22-29); Chloride 100 mmol/L (98-107); Osmolality Calculated 299 mOsm/kg (285-295); Potassium 3.2 mmol/L (3.5-5.1); Sodium 144 mmol/L (136-145); Total Bilirubin 0.2 mg/dL (0.15-1.2); Total Protein 7.1 g/dL (6.6-8.7)
[2023-07-12 19:21] LABS: Add Urine Microscopic? YES; Bilirubin Urine Neg (Negative); Blood Urine 2+ (Negative); Glucose Urine UA Norm (Normal); Ketones Urine Negative (Negative); Leukocyte Esterase Urine Negative (Negative); Nitrate Urine Negative (Negative); Protein Urine Trace (Negative); Specific Gravity, Urine 1.005 (1.005-1.030); Urine Appearance Clear (CLEAR); Urine Color Yellow (Yellow); Urobilinogen Urine Norm (Negative); pH Urine 6 (5-7)
[2023-07-12 19:22] LABS: Glucose 36 mg/dL (65-115)
[2023-07-12 19:30] LABS: Hyaline Casts Urine 0-4 /lpf; Mucus Urine TRACE /hpf; WBC Urine 0-4 /hpf (0-5)
[2023-07-12 19:31] LABS: Add Urine Culture? No
[2023-07-12] MEDS: dextrose 10% 250 ML 1000 ML IV (19:36)
[2023-07-12 19:56] LABS: Glucose Point of Care 141 mg/dL (70-110)
[2023-07-12 20:07] VITALS: BP 160/83; PULSE 68; RESP 18; O2SAT 99
--- NOTE | 2023-07-12 20:20 | P.HP_ITS ---
Providers/Chief Complaint 2 Admitting Physician: Jason Werner Primary Care Provider: SOLITARIO Byrd Chief Complaint: Low BS History of Present Illness Pleasant 73-year-old male with history of DM2 on Levemir 60 units every morning, sliding scale NovoLog 3 times a day was brought in for evaluation after he was acting in a confused manner towards his neighbor, which appears happens intermittently if he gets low blood sugar. EMS was called by his , blood glucose was 26. He received dextrose, on arrival in ER blood glucose low again at 36, was given additional 1 L of D10. Blood glucose came up to 72 and then 141. He states that this morning when he woke up his blood glucose was 72 he ate some breakfast -2 sausage links, and blood sugar improved up to 248 at which point he took 2 units of short acting sliding scale and his Levemir. Review of Systems 2 Const: Reports: chills; Denies: fever(s), body aches or malaise ENMT: Denies: throat pain Card: Denies: chest pain, edema, pre-syncope or dyspnea on exertion Resp: Denies: dyspnea, productive cough, change in phlegm color or hemoptysis GI: Denies: abdominal pain, nausea, vomiting, diarrhea, constipation, hematochezia or melena : Denies: flank pain, difficulty urinating, urinary frequency or hematuria Musc: Reports: extremity swelling (Intermittent swelling of right ankle); Denies: back pain, joint swelling or joint redness Skin/Breast: Denies: rash or new lesions Neuro: Reports: confusion; Denies: headache(s), numbness in extremities or weakness in extremities Medications/Allergies Home Medications Medication Instructions Recorded Confirmed Last Taken Type aspirin 325 mg tablet 325 mg PO DAILY 03/27/19 07/04/23 01/29/22 History chlorthalidone 50 mg tablet 50 mg PO DAILY #90 tabs 10/22/22 07/04/23 Unknown Rx diabetic shoes with 3 inserts #1 ea 02/22/23 07/04/23 Unknown Rx blood sugar diagnostic (Knewbi.comTouch #400 strips 04/06/23 07/12/23 Unknown Rx Ultra Test strips) lancets 33 gauge (OneTouch Delica #100 ea 04/06/23 07/12/23 Unknown Rx Plus Lancet) carvedilol 12.5 mg tablet 12.5 mg PO BID #180 tabs 04/21/23 07/04/23 Unknown Rx ketoconazole 2 % topical cream 1 applic topical BID #60 grams 05/02/23 07/04/23 Unknown Rx insulin aspart U-100 100 unit/mL See Rx Instructions .Route 06/01/23 07/12/23 Unknown Rx subcutaneous solution .COMPLEX 90 days #10 mL insulin detemir U-100 100 unit/mL See Rx Instructions .Route 06/01/23 07/12/23 Unknown Rx subcutaneous solution (Levemir .COMPLEX #10 mL U-100 Insulin) gabapentin 800 mg tablet See Rx Instructions .Route 06/16/23 07/12/23 Unknown Rx .COMPLEX #180 tabs gemfibrozil 600 mg tablet See Rx Instructions .Route 06/16/23 07/12/23 Unknown Rx .COMPLEX #180 tabs tizanidine 4 mg tablet See Rx Instructions .Route 06/16/23 07/12/23 Unknown Rx .COMPLEX #180 tabs rosuvastatin 20 mg tablet See Rx Instructions .Route 06/17/23 07/12/23 Unknown Rx .COMPLEX #90 tabs metformin 1,000 mg tablet See Rx Instructions .Route 06/20/23 07/12/23 Unknown Rx .COMPLEX #180 tabs potassium chloride 10 mEq See Rx Instructions .Route 06/20/23 07/12/23 Unknown Rx tablet,extended release .COMPLEX #90 tabs amlodipine 2.5 mg tablet 2.5 mg PO QID #120 tabs 06/22/23 07/12/23 Unknown Rx lisinopril 20 mg tablet 20 mg PO BID #60 tabs 06/22/23 07/12/23 Unknown Rx clotrimazole-betamethasone 1 1 applic topical BID 2 weeks #15 07/04/23 07/04/23 Unknown Rx %-0.05 % topical cream grams Allergies Allergy/AdvReac Type Severity Reaction Status Date / Time barley Allergy ALGY-Difficulty Verified 07/04/23 09:46 Breathing peas Allergy ALGY-Anaphy Verified 07/04/23 09:46 laxis PFSH Acute 2 PFSH: Medical History (Updated 07/12/23 @ 21:07 by Jason Werner MD) Degenerative joint disease of spine GERD (gastroesophageal reflux disease) Monoclonal gammopathy Pacemaker Enrolled in chronic care management Neuropathy CARMEN (obstructive sleep apnea) Obesity Multiple sclerosis Hyperlipidemia associated with type 2 diabetes mellitus Essential hypertension Surgical History (Updated 07/12/23 @ 20:28 by Jason Werner MD) Hx of colonoscopy unknown when completed Hx of unilateral orchiectomy Left orchiectomy for testicular torsion S/P insertion of spinal cord stimulator S/P placement of cardiac pacemaker S/P hemorrhoidectomy Family History Father CAD (coronary artery disease) Mother CAD (coronary artery disease) Hypertension Social History Smoking and tobacco/nicotine status: never used tobacco/nicotine Alcohol intake: never Substance/Drug Use: never Adopted: No Caregiver/support person: No Lives independently: No Household members: spouse Marital status: Current occupational status: disabled Sexually active: Yes Do you think of yourself as: Straight/Heterosexual Current gender identity: Male Vitals/I&O/Wt Last Vital Signs Temp 98.1 F 07/12/23 18:32 Pulse 68 07/12/23 20:07 Resp 18 07/12/23 20:07 BP 160/83 07/12/23 20:07 Pulse Ox 99 07/12/23 20:07 O2 Del Method Room Air 07/12/23 20:07 07/12/23 07/12/23 07/12/23 06:59 14:59 22:59 Intake Total 250 / 250 Balance 250 / 250 Weight last 48 hrs Weight 115.212 kg Physical Exam 2 Const: COMMON NORMALS: patient oriented x3 and alert GENERAL APPEARANCE: c ooperative NUTRITIONAL APPEARANCE: obese ORIENTATION/CONSCIOUSNESS: Yes awake OTHER: Pleasant, conversant. HENMT: COMMON NORMALS: oropharynx normal Neck/C-Spine: COMMON NORMALS: no JVD Resp: COMMON NORMALS: normal respiratory effort and clear to auscultation bilaterally AUSCULTATION: clear to auscultation bilaterally Cardio: COMMON NORMALS: no JVD, regular rhythm, S1 normal heart sound present, S2 normal heart sound present and No murmurs present (Cardio) RHYTHM: regular rhythm HEART SOUNDS: S1 normal heart sound present and S2 normal heart sound present GI: COMMON NORMALS: Normal to inspection, nondistended, normoactive bowel sounds present, Soft to palpation and non-tender PALPATION: Yes Soft to palpation Extremity: COMMON NORMALS: no joint enlargement GENERAL: Yes edema (2+ RLE) Neuro: COMMON NORMALS: patient oriented x3 and moves all extremities S ENSORIUM/ORIENTATION: Yes alert Skin: COMMON NORMALS: no rashes or lesions noted GENERAL SKIN EXAM: no rashes or lesions noted Data 07/12/23 18:45 07/12/23 18:45 A&P Assessment and plan (1) Hypoglycemia: Acute hyperglycemia in a gentleman with diabetes associated with acute metabolic encephalopathy. This appears to be a recurrent issue. Blood glucose 26 at home, received dextrose by EMS, still hypoglycemic in the ER 36, additional dextrose given. At risk of additional hypoglycemia given he had taken his Levemir this morning. Morning blood glucose was 72. He ate breakfast -2 sausage links, blood glucose went up to 240s, he gave himself 2 units of NovoLog and took the Levemir. Discussed with him to skip Levemir in case his blood glucose is low in the morning, discussed also that measuring right after having a meal may produce a misleading Harrison resolved. He verbalized understanding. Holding insulin at current time. Consider resuming once glucoses reliably rising, consider adjustment of insulin regimen/dose. Consider additional education with patient and family. He otherwise reports having some chills with the hypoglycemia, does not have other symptoms of acute infection. Reviewed vitals, CBC, CMP, UA, ER provider note, discussed with ER provider. Additionally noted hypokalemia, requesting replacement. For now continue with D5 half NS, reassess blood glucose. Monitor for risk of fluid overload. (2) Right leg swelling: Assess venous duplex of right lower extremity to assess for DVT. (3) Microscopic hematuria: UA looks like is returning with microscopic hematuria, please discussed with him, refer for follow-up with urology. (4) Diabetes mellitus type 2 with complications: With chronic neuropathy. Check A1c given recurrent hypoglycemia. Hold off Current time. Accu-Cheks. Consider carbohydrate diet. Resume and adjust insulin regimen once glucose reliably without hypoglycemia. (5) Hypokalemia: Replace potassium. Check magnesium. Plan HTN: Monitor blood pressures, resume home medications once confirmed. Pacemaker CARMEN Multiple sclerosis Monoclonal gammopathy Other medical problems BPH: Continue tamsulosin. Requesting home medications to be confirmed, please review and reconcile once available. Attestations 2 Medical Necessity Statement*: Place in observation for additional assessment and management of recurrent hypoglycemia symptomatic with systemic symptoms with acute metabolic encephalopathy, additional conditions as above. Diagnoses Hypoglycemia E16.2 Right leg swelling M79.89 Microscopic hematuria R31.29 Diabetes mellitus type 2 with complications E11.8 Hypokalemia E87.6
[2023-07-12 20:39] VITALS: BMI 42.1
[2023-07-12 20:50] VITALS: BP 132/84; PULSE 75; RESP 20; TEMP 36.4; O2SAT 97
--- NOTE | 2023-07-12 20:51 | USCV_ITS ---
Nolan Palmer Age: 73 Gender: M : 1950 Exam Date: 07/12/2023 21:17 Ordering Phys: Jason Werner MD Technologist: JERRY Exam Location: [facility] – [place] Indication: swelling assess for dvt HISTORY: swelling assess for dvt. No history of DVT per patient. PROCEDURES: Venous duplex imaging was performed in only the right lower extremity. The following venous structures were evaluated: common femoral vein, profunda vein, proximal portion of the greater saphenous vein, superficial femoral vein, and the popliteal vein. In addition, the posterior tibial and peroneal veins were evaluated. Serial compression, augmentation maneuvers, and spectral Doppler flow evaluation were performed, which were normal. On the right side, the common femoral, superficial femoral, profunda femoral, popliteal, posterior tibial, greater saphenous veins and the peroneal veins were identified and interrogated in the standard fashion. These veins were found to be easily compressible with spontaneous blood flow. No evidence of thrombus noted. CONCLUSIONS No evidence of right lower extremity DVT. José Landry MD (Electronically Signed) Final Date: 13 Jul 2023 10:23 S
[2023-07-12 21:13] LABS: Glucose Point of Care 80 mg/dL (70-110)
[2023-07-12 21:31] LABS: Magnesium 1.3 mg/dL (1.7-2.3)
--- NOTE | 2023-07-12 22:09 | PC.NURSE ---
Bright red blood noted in patient's stool in toilet. I asked patient if he has been having bloody stools and he states yes, for a long time. Patient states, I had hemorrhoid surgery about 20 years ago and about 6 months after the surgery, the bleeding started again.
[2023-07-12] MEDS: dextrose 5%-sod chloride 0.45% 1,000 ML 75 ML IV (22:12)
[2023-07-12] MEDS: potassium chloride ER 20 mEq Tablet PO (22:12)
[2023-07-12] MEDS: enoxaparin 40 mg/0.4 mL Syringe SUBCUT (22:12)
[2023-07-12] MEDS: magnesium sulfate premix 4 GM/100 ML PREMIX IV (22:13)
[2023-07-12 22:18] LABS: Estmated Average Glucose 140; Hemoglobin A1C 6.5 % (4.0-6.0)
[2023-07-12 23:04] LABS: Glucose Point of Care 132 mg/dL (70-110)
[2023-07-12 23:23] VITALS: RESP 18
--- NOTE | 2023-07-12 23:44 | PC.RESP ---
Cpap set up for patient at 2323. Patient was no able to give home setting. patient cpap set up on cpap auto 5-15 at this time. per RT to titrate. Patient on room air. no distress noted.
[2023-07-13] VITALS: BP 143/81; PULSE 82; RESP 20; TEMP 36.4; O2SAT 97
[2023-07-13 01:06] LABS: Glucose Point of Care 138 mg/dL (70-110)
[2023-07-13 03:31] LABS: Glucose Point of Care 143 mg/dL (70-110)
[2023-07-13 04:00] VITALS: BP 163/47; PULSE 75; RESP 18; TEMP 36.7; O2SAT 97
[2023-07-13 05:24] LABS: Basophils % 0.7 %; Eosinophils # 0.1 10^3/uL (0.0-0.8); Eosinophils % 1.5 %; Hematocrit 50.3 % (37-53); Lymphocytes # 1.1 10^3/uL (0.8-4.8); Lymphocytes % 17.9 %; Mean Corpuscular HGB Conc 30.4 g/dL (30-55); Mean Corpuscular Hemoglobin 30.2 pg (27-33); Mean Corpuscular Volume 99.2 fl (82-101); Mean Platelet Volume 9.7 fL (7.4-10.4); Monocytes # 0.5 10^3/uL (0.2-0.9); Monocytes % 8.9 %; Neutrophils % 70.7 %; Nucleated Red Blood Cells % 0 %; Platelet Count 167 10^3/cmm (157-399); Red Blood Count 5.07 10^6/uL (3.85-5.65); Red Cell Distribution Width 13.5 % (12.1-15.1); White Blood Count 6.08 10^3/uL (3.29-11.43)
[2023-07-13 05:44] LABS: Blood Urea Nitrogen 18 mg/dL (8-23); Carbon Dioxide 27 mmol/L (22-29); Chloride 101 mmol/L (98-107); Creatinine Clr Calc Pharmacy 87.1286; Glucose 161 mg/dL (65-115); Osmolality Calculated 297 mOsm/kg (285-295); Sodium 141 mmol/L (136-145)
[2023-07-13 05:49] LABS: Anion Gap 16.4 (5-19); Potassium 3.4 mmol/L (3.5-5.1)
[2023-07-13 06:01] LABS: Glucose Point of Care 150 mg/dL (70-110)
[2023-07-13 08:00] VITALS: BP 125/67; PULSE 93; RESP 18; TEMP 36.6; O2SAT 95
--- NOTE | 2023-07-13 08:09 | PC.PHAR ---
PT STATES TOOK AM MEDICATIONS ON Tuesday07/12/23
[2023-07-13] MEDS: tamsulosin 0.4 mg Capsule 0.400000000000000022 MG PO (08:45)
--- NOTE | 2023-07-13 10:29 | PC.CHAP ---
Pastoral Care Encounter/Spiritual Assessment Type of Contact [] Declined manager of hospital visit [] Patient/Family/Request visit [] Outpatient visit [] Follow-up visit [] Physician referral [] Code/Alert [] Routine visit [] Staff referral [] Actively dying [] Patient sleeping [] Family support [] [] Out of room [] Palliative care [] [] Receiving care in room [] Pre-surgical visit [] Trauma [] Long length of stay [] ICU visit [] Other: Relational/Emotional Strength [x] Patient feels connected with others/family/visitors/staff [] Distress [] Loneliness/isolation [] Abandonment Spirituality of Patient [x] Person of Eloisa [] Attends Christianity of their Eloisa [x] Believes in Prayer [] Reads Bible or Orthodoxy materials [] There are Spiritual issues to be addressed Lace Sewer Interventions [x] Prayer [] Active listening [] Non-anxious presence [] Spiritual/emotional support [] Crisis/trauma care [] Spiritual counseling [] Bereavement support [] Provided bereavement packet [] Provided Bible/devotional materials [] Provided toy/stuffed animal, coloring book to patient or family member [] Provided Communion [] Anointing/Brick [] Salvation [] Completed spiritual assessment [] Other: Impact on Illness or Injury [] Angry [] Fearful [] Anxious [] Often cries [] Exhaustion [] Unable to work [] Unable to attend anglican [] Unable to walk/stand [] Unable to read [] Unable to drive [] Unable to eat/drink [] Unable to sleep [] Unable to be with family [] Patient intubated [] Other: Summary Time spent with patient 5 min
--- NOTE | 2023-07-13 10:57 | P.PN_ITS ---
Subjective 2 Subjective: Patient is stating that he has cut down on his Lantus from 20 units to 60 units lately I have asked him to take 40 units now onwards He takes NovoLog does carb counting and take extra units at home No active symptoms of hypoglycemia but stating that he is not feeling right he does get hot flashes and gets sweaty at times time Will discontinue D5 start medium intensity sliding scale, Will like to monitor for 1 more day patient is agreeable Vitals/I&O/Wt Last Vital Signs Temp 98 F 07/13/23 08:00 Pulse 93 07/13/23 08:00 Resp 18 07/13/23 08:00 BP 125/67 07/13/23 08:00 Pulse Ox 95 07/13/23 08:00 O2 Del Method CPAP 07/13/23 04:00 FiO2 21 07/12/23 23:23 07/12/23 07/13/23 07/13/23 22:59 06:59 14:59 Intake Total 250 / 250 580 / 830 Output Total 700 / 700 Balance 250 / 250 -120 / 130 Weight last 48 hrs Weight 118.161 kg Weight 118.478 kg Weight 115.212 kg Physical Exam 2 Narrative: Awake and alert GCS 15 Hard of hearing Nonfocal neuroexam No active sign of stroke GCS 15 currently on room air Data 07/13/23 05:09 07/13/23 05:09 A&P Assessment and plan (1) Essential hypertension: (2) Pacemaker: (3) Diabetes mellitus type 2 with complications: (4) Obesity: Qualifiers: Obesity type: due to excess calories Obesity classification: adult class 3 (BMI >= 40) Serious obesity comorbidity presence: with serious comorbidity Body mass index: BMI 40.0-44.9 Qualified Code(s): E66.01 - Morbid (severe) obesity due to excess calories; Z68.41 - Body mass index [BMI]40.0- 44.9, adult (5) Decreased hearing of both ears: (6) Microscopic hematuria: (7) Hypokalemia: (8) Myeloma: (9) Monoclonal gammopathy: (10) Multiple sclerosis: (11) CARMEN (obstructive sleep apnea): (12) Hypokalemia: Plan No evidence of DVT Episodic hypoglycemia improved discontinue D5 normal saline IV fluids Continue medium intensity surgical Hemoglobin A1c is below 7 I have asked patient to cut back on Lantus to 40 units in careful to take NovoLog which can cause low blood sugars History of monoclonal gammopathy and multiple myeloma no acute exacerbation Microscopic hematuria Patient will repeat UA in a week and if positive he will need urology outpatient follow-up Continue to prophylaxis Full code Consistent carb diet Disposition: Home by tomorrow Attestations 2 Medical Necessity Statement*: Will discharge him by tomorrow Diagnoses Essential hypertension I10 Pacemaker Z95.0 Diabetes mellitus type 2 with complications E11.8 Class 3 severe obesity due to excess calories with serious comorbidity and body mass index (BMI) of 40.0 to 44.9 in adult E66.01; Z68.41 Obesity type: due to excess calories Obesity classification: adult class 3 (BMI >= 40) Serious obesity comorbidity presence: with serious comorbidity Body mass index: BMI 40.0-44.9 Decreased hearing of both ears H91.93 Microscopic hematuria R31.29 Hypokalemia E87.6 Myeloma C90.00 Monoclonal gammopathy D47.2 Multiple sclerosis G35 CARMEN (obstructive sleep apnea) G47.33
[2023-07-13 11:28] LABS: Glucose Point of Care 177 mg/dL (70-110)
[2023-07-13 12:00] VITALS: BP 159/89; PULSE 63; RESP 17; TEMP 36.6; O2SAT 96
[2023-07-13] MEDS: magnesium oxide 400 mg tablet PO ×2 (12:10→18:38)
[2023-07-13] MEDS: potassium chloride ER 20 mEq Tablet 40 MEQ PO (12:11)
[2023-07-13] MEDS: chlorthalidone 25 mg Tablet 50 MG PO (12:11)
[2023-07-13] MEDS: insulin lispro 100 unit/1 mL SUBCUT ×2 (12:22→18:38)
[2023-07-13 16:00] VITALS: BP 161/94; PULSE 63; RESP 18; TEMP 36.9; O2SAT 93
[2023-07-13 16:01] LABS: Glucose Point of Care 143 mg/dL (70-110)
[2023-07-13] MEDS: ondansetron 2 mg/ML SDV 2 mL 4 MG IVP (17:21)
[2023-07-13] MEDS: gabapentin 400 mg Capsule 800 MG PO (18:38)
[2023-07-13] MEDS: lisinopril 20 mg Tablet PO (18:38)
[2023-07-13] MEDS: carvedilol 12.5 mg Tablet PO (18:38)
[2023-07-13 20:00] VITALS: BP 167/88; PULSE 65; RESP 18; TEMP 36.3; O2SAT 94
[2023-07-13] MEDS: enoxaparin 40 mg/0.4 mL Syringe SUBCUT (20:58)
[2023-07-13 20:59] LABS: Glucose Point of Care 184 mg/dL (70-110)
[2023-07-13 23:56] LABS: Glucose Point of Care 152 mg/dL (70-110)
[2023-07-14] VITALS: BP 169/97; PULSE 78; RESP 20; TEMP 36.5; O2SAT 94
[2023-07-14 04:00] VITALS: BP 154/81; PULSE 72; RESP 20; TEMP 36.5; O2SAT 92
[2023-07-14 04:17] LABS: Glucose Point of Care 145 mg/dL (70-110)
[2023-07-14 05:27] LABS: Basophils % 0.7 %; Eosinophils # 0.1 10^3/uL (0.0-0.8); Eosinophils % 1.1 %; Hematocrit 45.6 % (37-53); Lymphocytes # 1.2 10^3/uL (0.8-4.8); Lymphocytes % 20.7 %; Mean Corpuscular HGB Conc 32.5 g/dL (30-55); Mean Corpuscular Volume 92.5 fl (82-101); Mean Platelet Volume 10.1 fL (7.4-10.4); Monocytes # 0.4 10^3/uL (0.2-0.9); Monocytes % 7.4 %; Neutrophils # 3.93 10^3/uL (1.8-7.7); Neutrophils % 69.7 %; Nucleated Red Blood Cells % 0 %; Platelet Count 178 10^3/cmm (157-399); Red Blood Count 4.93 10^6/uL (3.85-5.65); Red Cell Distribution Width 13.5 % (12.1-15.1); White Blood Count 5.64 10^3/uL (3.29-11.43)
[2023-07-14 05:54] LABS: Anion Gap 13.4 (5-19); Blood Urea Nitrogen 16 mg/dL (8-23); Calcium 9.2 mg/dL (8.5-10.5); Carbon Dioxide 32 mmol/L (22-29); Chloride 96 mmol/L (98-107); Creatinine Clr Calc Pharmacy 86.6666; Glucose 132 mg/dL (65-115); Osmolality Calculated 289 mOsm/kg (285-295); Potassium 3.4 mmol/L (3.5-5.1); Sodium 138 mmol/L (136-145)
[2023-07-14 06:33] LABS: Glucose Point of Care 133 mg/dL (70-110)
[2023-07-14 07:33] VITALS: BP 157/75; PULSE 88; RESP 17; TEMP 36.7; O2SAT 91
[2023-07-14] MEDS: chlorthalidone 25 mg Tablet 50 MG PO (09:52)
[2023-07-14] MEDS: carvedilol 12.5 mg Tablet PO (09:52)
[2023-07-14] MEDS: lisinopril 20 mg Tablet PO (09:52)
[2023-07-14] MEDS: gabapentin 400 mg Capsule 800 MG PO (09:52)
[2023-07-14] MEDS: tamsulosin 0.4 mg Capsule 0.400000000000000022 MG PO (09:52)
[2023-07-14] MEDS: magnesium oxide 400 mg tablet PO (09:52)
[2023-07-14] MEDS: potassium chloride ER 20 mEq Tablet 40 MEQ PO (09:52)
--- NOTE | 2023-07-14 10:43 | P.DS_ITS ---
Discharge Providers Date of Admission: 07/13/23 10:57 Date of Discharge: July 14, 2023 Attending Provider at Admission: Jason Werner Attending Provider at Discharge: rEich Chance MD Primary Care Provider: SOLITARIO Byrd Diagnoses at Discharge Discharge Diagnosis (1) Essential hypertension: Status: Acute (2) Pacemaker: Status: Acute (3) Diabetes mellitus type 2 with complications: Status: Acute (4) Obesity: Status: Acute Qualifiers: Body mass index: BMI 40.0-44.9 Obesity classification: adult class 3 (BMI >= 40) Obesity type: due to excess calories Serious obesity comorbidity presence: with serious comorbidity Qualified Code(s): E66.01 - Morbid (severe) obesity due to excess calories; Z68.41 - Body mass index [BMI]40.0-44.9, adult (5) Decreased hearing of both ears: Status: Acute (6) Microscopic hematuria: Status: Acute (7) Hypokalemia: Status: Acute (8) Myeloma: Status: Acute (9) Monoclonal gammopathy: Status: Acute (10) Multiple sclerosis: Status: Acute (11) CARMEN (obstructive sleep apnea): Status: Acute Reason for Visit Reason for Visit: Low BS Hospital Course Hospital Course 73-year-old male who was admitted for management evaluation of metabolic encephalopathy related to hypoglycemia, patient is stating that his hemoglobin A1c has been around 7 and his Lantus units were around 100 units which were recently cut down to 60 units by the PCP, patient calculates carbs and try to t francy NovoLog accordingly but roughly takes 5 units Premeal, during hospitalization he was put on D5 IV fluids which improved his hypoglycemia, metabolic encephalopathy improved, I have asked him to cut back on his Lantus units to 40 units and tried NovoLog 3 units instead of 5 along sliding scale. Patient remained hemodynamically stable, experienced 1-2 episode of nausea with vomiting 07/12, on 07/13 he is able to tolerate diet no active nausea vomiting or diarrhea. Did not vomit after breakfast. Requesting CT abdomen pelvis without contrast before discharge. Patient is stating that for last week or so he did notice mild discomfort right lower quadrant area without any fever, diarrhea or vomiting at home. Physical Exam Narrative: Awake and alert GCS 15 Abdomen soft No signs of peritonitis Abdomen distended, Morbidly obese Awake and alert GCS 15 Discharge Data Studies Completed and Pending Completed Studies During Hospitalization Category Date Time Status US venous duplex lower extremity RT [CV venous duplex Ultrasound 07/12/23 20:51 [place] [id number]] Routine Pending at discharge Category Date Time Status CT abdomen pelvis wo con [id number] Routine Cat Scan 07/14/23 10:13 Ordered Basic Metabolic Panel AM LABS Lab 07/15/23 04:00 Ordered Complete Blood Count w/Auto AM LABS Lab 07/15/23 04:00 Ordered Laboratory Results WBC 5.64 10^3/uL (3.29-11.43) 07/14/23 04:16 RBC 4.93 10^6/uL (3.85-5.65) 07/14/23 04:16 Hgb 14.80 g/dL (11.27-16.99) 07/14/23 04:16 Hct 45.6 % (37-53) 07/14/23 04:16 MCV 92.5 fl (82-101) D 07/14/23 04:16 MCH 30.0 pg (27-33) 07/14/23 04:16 MCHC 32.5 g/dL (30-55) D 07/14/23 04:16 RDW 13.5 % (12.1-15.1) 07/14/23 04:16 Plt Count 178 10^3/cmm (157-399) 07/14/23 04:16 MPV 10.1 fL (7.4-10.4) 07/14/23 04:16 Neut % (Auto) 69.7 % 07/14/23 04:16 Lymph % (Auto) 20.7 % 07/14/23 04:16 [place] % (Auto) 7.4 % 07/14/23 04:16 Eos % (Auto) 1.1 % 07/14/23 04:16 Baso % (Auto) 0.7 % 07/14/23 04:16 Neut # (Auto) 3.93 10^3/uL (1.8-7.7) 07/14/23 04:16 Lymph # (Auto) 1.2 10^3/uL (0.8-4.8) 07/14/23 04:16 [place] # (Auto) 0.4 10^3/uL (0.2-0.9) 07/14/23 04:16 Eos # (Auto) 0.1 10^3/uL (0.0-0.8) 07/14/23 04:16 Baso # (Auto) 0.0 10^3/uL (0.0-0.1) 07/14/23 04:16 Nucleated RBC % (auto) 0 % 07/14/23 04:16 Nucleated RBCs # 0.0 /100WBC 07/14/23 04:16 Sodium 138 mmol/L (136-145) 07/14/23 04:16 Potassium 3.4 mmol/L (3.5-5.1) L 07/14/23 04:16 Chloride 96 mmol/L (98-107) L 07/14/23 04:16 Carbon Dioxide 32 mmol/L (22-29) H 07/14/23 04:16 Anion Gap 13.4 (5-19) 07/14/23 04:16 BUN 16 mg/dL (8-23) 07/14/23 04:16 Creatinine 0.9 mg/dL (0.7-1.2) 07/14/23 04:16 GFR Calculation Not Reportable 07/14/23 04:16 Glucose 132 mg/dL (65-115) H 07/14/23 04:16 POC Glucose 133 mg/dL (70-110) H 07/14/23 06:27 Estimat Average Glucose 140 07/12/23 18:45 Hemoglobin A1c 6.5 % (4.0-6.0) H 07/12/23 18:45 Calculated Osmolality 289 mOsm/kg (285-295) 07/14/23 04:16 Calcium 9.2 mg/dL (8.5-10.5) 07/14/23 04:16 Magnesium 1.3 mg/dL (1.7-2.3) L 07/12/23 18:45 Total Bilirubin 0.2 mg/dL (0.15-1.2) 07/12/23 18:45 AST 33 U/L (0-40) 07/12/23 18:45 ALT 9 U/L (0-41) 07/12/23 18:45 Alkaline Phosphatase 82 U/L (40-130) 07/12/23 18:45 Total Protein 7.1 g/dL (6.6-8.7) 07/12/23 18:45 Albumin 4.1 g/dL (3.5-5.2) 07/12/23 18:45 Globulin 3.0 g/dL (1.3-4.6) 07/12/23 18:45 Urine Color Yellow (Yellow) 07/12/23 18:45 Urine Appearance Clear (CLEAR) 07/12/23 18:45 Urine pH 6 (5-7) 07/12/23 18:45 Ur Specific [place] 1.005 (1.005-1.030) 07/12/23 18:45 Urine Protein Trace (Negative) 07/12/23 18:45 Urine Glucose (UA) Norm (Normal) 07/12/23 18:45 Urine Ketones Negative (Negative) 07/12/23 18:45 Urine Blood 2+ (Negative) H 07/12/23 18:45 Urine Nitrate Negative (Negative) 07/12/23 18:45 Urine Bilirubin Neg (Negative) 07/12/23 18:45 Urine Urobilinogen Norm mg/dL (Negative) 07/12/23 18:45 Ur Leukocyte Esterase Negative (Negative) 07/12/23 18:45 Urine RBC 5-10 /hpf (0-2) H 07/12/23 18:45 Urine WBC 0-4 /hpf (0-5) H 07/12/23 18:45 Ur Squamous Epith Cells None /hpf (0-5) 07/12/23 18:45 Amorphous Sediment Not Reportable 07/12/23 18:45 Urine Bacteria None /hpf (NONE) 07/12/23 18:45 Hyaline Casts 0-4 /lpf H 07/12/23 18:45 Urine Mucus Trace /hpf 07/12/23 18:45 Vitals Last Vital Signs Temp 98.0 F 07/14/23 07:33 Pulse 88 07/14/23 07:33 Resp 17 07/14/23 07:33 BP 157/75 07/14/23 07:33 Pulse Ox 91 07/14/23 07:33 O2 Del Method Room Air 07/14/23 07:33 FiO2 21 07/12/23 23:23 Discharge Plan Discharge Patient Disposition: Home Condition: Stable Prescriptions: Continued aspirin 325 mg tablet 325 mg PO DAILY chlorthalidone 50 mg tablet 50 mg PO DAILY Qty: 90 3RF Hold Instructions: Doctor's Order carvedilol 12.5 mg tablet 12.5 mg PO BID Qty: 180 3RF (DME) diabetic shoes with 3 inserts See Rx Instructions .Route .MEDSUPPLY Qty: 1 0RF Rx Instructions: As directed to the shoe guys (DME) OneTouch Ultra Test Strip See Rx Instructions .ROUTE .COMPLEX Qty: 400 0RF Dose Instruction: USE TO TEST BLOOD SUGAR FIVE TIMES DAILY Rx Instructions: USE TO TEST BLOOD SUGAR FIVE TIMES DAILY (DME) lancets [OneTouch Delica Plus Lancet] 33 gauge misc See Rx Instructions .ROUTE .COMPLEX Qty: 100 0RF Dose Instruction: USE TO TEST BLOOD SUGAR THREE TIMES DAILY Rx Instructions: USE TO TEST BLOOD SUGAR THREE TIMES DAILY insulin aspart U-100 100 unit/mL solution See Rx Instructions .ROUTE .COMPLEX 90 Days Qty: 10 0RF Dose Instruction: INJECT 30 UNITS UNDER THE SKIN UP TO THREE TIMES DAILY WITH MEALS Rx Instructions: INJECT 3 UNITS UNDER THE SKIN UP TO THREE TIMES DAILY WITH MEALS tizanidine 4 mg tablet See Rx Instructions .ROUTE .COMPLEX Qty: 180 0RF Dose Instruction: TAKE 2 TABLETS BY MOUTH TWICE DAILY NEEDED FOR MILD PAIN Rx Instructions: TAKE 2 TABLETS BY MOUTH TWICE DAILY NEEDED FOR MILD PAIN lisinopril 20 mg tablet 20 mg PO BID Qty: 60 3RF amlodipine 2.5 mg tablet 2.5 mg PO QID Qty: 120 6RF potassium chloride 10 mEq tablet extended release 10 meq PO DAILY gabapentin 800 mg tablet 800 mg PO BID metformin 1,000 mg tablet 1,000 mg PO BID clotrimazole-betamethasone 1-0.05 % cream 1 applic topical BID PRN (Reason: Skin Irritation) ketoconazole 2 % cream 1 applic topical BID PRN (Reason: Skin Irritation) rosuvastatin 20 mg tablet 20 mg PO DAILY Changed Levemir U-100 Insulin 100 unit/mL solution 40 unit SUBCUT QPM Qty: 10 2RF Dose Instruction: INJECT 1 MILLILITER SUBCUTANEOUSLY DAILY Rx Instructions: INJECT 40 units SUBCUTANEOUSLY QPM give pt 6 vials this last him 3 months. Discontinued gemfibrozil 600 mg tablet 600 mg PO BID Discharge Orders: Discharge Order (Routine); Ordered 07/14/23 Ordered By: Erich Chance Referrals: Maged Bustamante FNP [Primary Care Provider] - 07/19/23 3:00 pm Reza Farley MD [Referring] - 2 weeks (We have notified your physician's clinic of the need for a follow-up appointment to be scheduled. If you have not heard from them within the next 2 business days, please call them directly. ) Patient Instructions: Hypoglycemia in a Person with Diabetes (GEN), What to Do if Your Blood Sugar is Low (GEN), Opioid Safety Discharge Attestations Time Spent in Discharge Care*: greater than 30 min Status at Discharge: Cognitive status at discharge: cognitively intact , Behavioral status at discharge: cooperative , Quality Metrics Clinical Quality Measures [ No reported AMI, CVA or VTE this stay] Coding Level of Care Code Acute Code for Chg Fwd Diagnoses Essential hypertension I10 Pacemaker Z95.0 Diabetes mellitus type 2 with complications E11.8 Class 3 severe obesity due to excess calories with serious comorbidity and body mass index (BMI) of 40.0 to 44.9 in adult E66.01; Z68.41 Body mass index: BMI 40.0-44.9 Obesity classification: adult class 3 (BMI >= 40) Obesity type: due to excess calories Serious obesity comorbidity presence: with serious comorbidity Decreased hearing of both ears H91.93 Microscopic hematuria R31.29 Hypokalemia E87.6 Myeloma C90.00 Monoclonal gammopathy D47.2 Multiple sclerosis G35 CARMEN (obstructive sleep apnea) G47.33
[2023-07-14 11:24] VITALS: BP 172/90; PULSE 65; RESP 16; TEMP 36.6; O2SAT 93
[2023-07-14 11:30] LABS: Glucose Point of Care 168 mg/dL (70-110)
[2023-07-14] MEDS: insulin lispro 100 unit/1 mL SUBCUT (11:53)
--- NOTE | 2023-07-14 12:00 | CT_ITS ---
WS: [id number] CT ABDOMEN PELVIS TECHNIQUE: Noncontrast CT of the abdomen and pelvis with coronal and sagittal reformatted images. CLINICAL INFORMATION: RLQ pain COMPARISON: None. DLP: 1257.[address] scans at [facility] use at least one of these dose optimization techniques: automated e xposure control; mA and/or kV adjustment per patient size (includes targeted exams where dose is matc hed to clinical indication); or iterative reconstruction. FINDINGS: Hepatomegaly. Otherwise normal noncontrast liver. Normal GE junction. Distended stomach with food pro ducts. Fatty atrophy of the pancreas. Noncontrast spleen appears normal. Adrenal glands are normal. S mall RIGHT adrenal adenoma measuring 12 mm. No hydronephrosis in either kidney. Bilateral renal cysts largest in the RIGHT involving the lower pole measuring 4.6 x 4.1 cm. Normal caliber abdominal aorta . Aortic calcification. Enlarged prostate measuring 5.8 cm. Recommend correlation PSA. Evidence of bl adder outlet obstruction with mild diffuse bladder wall thickening. Sigmoid diverticulosis. No evidence of acute diverticulitis. Tortuous sigmoid colon. Contracted gallb ladder. Small fat-containing umbilical hernia. Slight induration in the abdominal wall bilaterally li patricia due to subcutaneous injections. Small amount of air in the RIGHT subcutaneous abdominal wall als o presumably due to recent injections. No abscess or fluid collection. Mild lumbar curve. Partially v isualized spinal stimulator. Large LEFT greater than RIGHT fat-containing inguinal hernias. No hernia yvon bowel. CT/CT abdomen pelvis wo con [id number] IMPRESSION: 1. Sigmoid diverticulosis. No evidence of acute diverticulitis. 2. Enlarged prostate. Recommend correlation PSA. Evidence of bladder outlet ob struction. 3. Large LEFT greater than RIGHT fat-containing inguinal hernias. No herniated bowel. 4. Distended stomach with fluid and food products. 5. No hydronephrosis in either kidney. 6. Incidental RIGHT greater than LEFT renal cysts. 7. Small RIGHT adrenal adenoma. 8. No other acute findings.
== END 2023-07-14 15:21 | disposition home or self-care (01) | DRG 637 ==
LOC: ER 20:03 → MEDSURG 20:13
PROVIDERS: Admitting Provider Internal Medicine; Emergency Provider Physician Assistant; PCP Registered Nurse; Visit Provider Internal Medicine
DX: E11.649 Type 2 diabetes mellitus with hypoglycemia without coma (principal); G93.41 Metabolic encephalopathy; Z68.41 Body mass index [BMI] 40.0-44.9, adult; E11.42 Type 2 diabetes mellitus with diabetic polyneuropathy; Z79.4 Long term (current) use of insulin; I10 Essential (primary) hypertension; Z95.0 Presence of cardiac pacemaker; E66.01 Morbid (severe) obesity due to excess calories; R31.29 Other microscopic hematuria; E87.6 Hypokalemia; D47.2 Monoclonal gammopathy; N40.0 Benign prostatic hyperplasia without lower urinary tract symptoms; G35 Multiple sclerosis; Z79.82 Long term (current) use of aspirin; M79.89 Other specified soft tissue disorders; G47.33 Obstructive sleep apnea (adult) (pediatric)
CPT/HCPCS: 36415; 36416; 74176; 80048; 80053; 81001; 82962; 83036; 83735; 85025; 93971; 94660; 96360; 96372; 99285; G0378; J1650; J1815; J2405; J3475; J7799

== ENCOUNTER 2023-08-11 07:29 | Day surgery (SDC) | payer MEDICARE, SELFPAY ==
--- NOTE | 2023-08-11 07:41 | W.PM.OPSFHP ---
Same Day Surgery H&P Indication for Procedure/HPI DATE OF PROCEDURE: August 11, 2023 CHIEF COMPLAINT/INDICATIONFOR SURGICAL PROCEDURE: need for screening colonoscopy PREOP DIAGNOSIS: need for screening colonoscopy PLANNED PROCEDURE: Operation Date: 08/11/23 08:20 Proposed Procedures p Colonoscopy(Not Applicable) - Fco Mack MD Medications/Allergies* Home Medications Medication Instructions Recorded Confirmed Type aspirin 325 mg tablet 325 mg PO DAILY 03/27/19 08/09/23 History clotrimazole-betamethasone 1 1 applic topical BID PRN Skin 07/13/23 08/09/23 History %-0.05 % topical cream Irritation gabapentin 800 mg tablet 800 mg PO BID 07/13/23 08/09/23 History ketoconazole 2 % topical cream 1 applic topical BID PRN Skin 07/13/23 08/09/23 History Irritation metformin 1,000 mg tablet 1,000 mg PO BID 07/13/23 08/09/23 History potassium chloride 10 mEq 10 meq PO DAILY 07/13/23 08/09/23 History tablet,extended release rosuvastatin 20 mg tablet 20 mg PO DAILY 07/13/23 08/09/23 History insulin aspart U-100 100 unit/mL See Rx Instructions .Route .COMPLEX 08/09/23 08/09/23 History subcutaneous solution (Novolog U-100 Insulin aspart) tizanidine 4 mg tablet 8 mg PO BID PRN Pain 08/09/23 08/09/23 History Allergies/Adverse Reactions Allergy/AdvReac Type Severity Reaction Status Date / Time barley Allergy ALGY-Difficulty Verified 08/09/23 11:41 Breathing peas Allergy ALGY-Anaphy Verified 08/09/23 11:41 laxis Pertinent History/Comorbid Conditions* Medical History (Updated 07/25/23 @ 18:56 by Renato Dewey MD) Diabetes mellitus type 2 with complications Microscopic hematuria Right leg swelling Hypoglycemia Decreased hearing of both ears Myeloma Degenerative joint disease of spine GERD (gastroesophageal reflux disease) Monoclonal gammopathy Pacemaker Enrolled in chronic care management Neuropathy CARMEN (obstructive sleep apnea) Obesity Multiple sclerosis Hyperlipidemia associated with type 2 diabetes mellitus Essential hypertension Surgical History (Updated 07/12/23 @ 20:28 by Jason Werner MD) Hx of colonoscopy unknown when completed Hx of unilateral orchiectomy Left orchiectomy for testicular torsion S/P insertion of spinal cord stimulator S/P placement of cardiac pacemaker S/P hemorrhoidectomy Family History (Updated 04/16/19 @ 08:06 by Shannan Coleman RN) CAD (coronary artery disease) Father Mother Hypertension Mother Social History Smoking and tobacco/nicotine status: never used tobacco/nicotine Alcohol intake: never Substance/Drug Use: never Adopted: No Caregiver/support person: No Lives independently: No Household members: spouse Marital status: Current occupational status: disabled Sexually active: Yes Do you think of yourself as: Straight/Heterosexual Current gender identity: Male Pertinent Exam Findings alert, oriented x 3, clear to auscultation bilaterally and regular rate & rhythm Recommendations Surgery/Procedure today Coding Level of Care Code Acute Code for Chg Fwstella
[2023-08-11 07:50] VITALS: BP 176/101; PULSE 97; RESP 18; TEMP 36.6; O2SAT 93; BMI 41.9
[2023-08-11] MEDS: sodium chloride 0.9% 1,000 ML 30 ML IV (07:58)
[2023-08-11 08:02] LABS: Glucose Point of Care 115 mg/dL (70-110)
--- NOTE | 2023-08-11 08:03 | P.ANESASSM_ITS ---
Pre-Anesthetic Assessment Height/Weight: Height 1.68 m Weight 117.934 kg Temp Pulse Resp BP Pulse Ox O2 Del Method 97.8 F 97 18 176/101 93 Room Air 08/11/23 07:50 08/11/23 07:50 08/11/23 07:50 08/11/23 07:50 08/11/23 07:50 08/11/23 07:50 Preop Diagnosis: need for screening colonoscopy Operation Date: 08/11/23 08:20 Proposed Procedures p Colonoscopy(Not Applicable) - Fco Mack MD Familial anesthetic complications: None Was Beta Justina taken within 24 hours: Yes Was Clonidine taken within 24 hours: N/A Last intake: Intake Last Liquid Date 08/10/23 Last Liquid Time 23:30 Last Solid Date 08/09/23 Last Solid Time 12:00 Social No alcohol and No tobacco Exam alert, oriented x 3 and clear to auscultation bilaterally (Diminished) Pacemaker Airway Submandibular: within normal limits Cervical ROM: Other (Decreased ROM) Mallampati: Class III Dentition: false History/ROS No significant history except as noted and No significant complaints Pulmonary Cough, Exertional Dyspnea and Sleep Apnea (CPAP) CV/HEM Arrythmia, Coronary Artery Disease, Congestive Heart Failure, Hypertension and Peripheral Vascular Disease CONCLUSIONS Normal left ventricular size, systolic function and wall thickness, with no regional wall motion abnormalities. Normal left ventricular wall thickness. Grade I/IV diastolic dysfunction (abnormal relaxation filling pattern), normal to mildly elevated filling pressures. The right ventricle is normal in size and function. Mild pulmonary hypertension. RVSP 43 mm Hg. Structurally normal mitral valve without significant stenosis or prolapse. Trace mitral valve regurgitation. Mildly dilated ascending aorta. Moderately dilated IVC. None reported Hepatic None reported GI Inguinal hernia Metabolic Diabetes Mellitus, Hyperlipidemia and Morbid Obesity [facility]/skel Lower Back Pain (Spine stimulator) and Weakness (Was diagnosed with MS, diagnosed for 20 years, then was told he didn't have it) Neuropsych Headache, Neuropathy and Transient Ischemic Attack Anesthetic Plan ASA status: 3 Anesthesia: Anesthesia Evaluation, General and MAC Risk of > 500 ml blood loss (7ml/kg in children): No Medications/Allergies Home Medications Medication Instructions Recorded Confirmed Last Taken Type aspirin 325 mg tablet 325 mg PO DAILY 03/27/19 08/09/23 08/08/23 History chlorthalidone 50 mg tablet 50 mg PO DAILY #90 tabs 10/22/22 08/11/23 08/10/23 Rx diabetic shoes with 3 inserts #1 ea 02/22/23 08/05/23 Unknown Rx lancets 33 gauge ([facility] [place] #100 ea 04/06/23 08/05/23 Unknown Rx Plus Lancet) carvedilol 12.5 mg tablet 12.5 mg PO BID #180 tabs 04/21/23 08/11/23 08/11/23 Rx lisinopril 20 mg tablet 20 mg PO BID #60 tabs 06/22/23 08/11/23 08/10/23 Rx clotrimazole-betamethasone 1 1 applic topical BID PRN Skin 07/13/23 08/09/23 Unknown History %-0.05 % topical cream Irritation gabapentin 800 mg tablet 800 mg PO BID 07/13/23 08/09/23 08/08/23 History ketoconazole 2 % topical cream 1 applic topical BID PRN Skin 07/13/23 08/11/23 Unknown History Irritation metformin 1,000 mg tablet 1,000 mg PO BID 07/13/23 08/11/23 08/09/23 History potassium chloride 10 mEq 10 meq PO DAILY 07/13/23 08/11/23 08/10/23 History tablet,extended release rosuvastatin 20 mg tablet 20 mg PO DAILY 07/13/23 08/11/23 08/10/23 History insulin detemir U-100 100 unit/mL 40 unit (0.4 mL) SUBCUT QAM #6 mL 07/19/23 08/11/23 08/09/23 Rx subcutaneous solution (Levemir U-100 Insulin) albuterol sulfate 2.5 mg/3 mL 2.5 mg (3 mL) inhalation QID PRN 07/25/23 08/11/23 Unknown Rx (0.083 %) solution for nebulization shortness of breath or wheezing #90 mL blood sugar [facility] 07/25/23 08/05/23 Unknown Rx Ultra Test strips) promethazine-DM 6.25 mg-15 mg/5 mL 7.5 ml PO BEDTIME 10 days #75 mL 08/05/23 08/11/23 08/10/23 Rx oral syrup amlodipine 2.5 mg tablet 2.5 mg PO QID #120 tabs 08/09/23 08/11/23 08/11/23 Rx insulin aspart U-100 100 unit/mL See Rx Instructions .Route .COMPLEX 08/09/23 08/11/23 08/09/23 History subcutaneous solution (Novolog U-100 Insulin aspart) tizanidine 4 mg tablet 8 mg PO BID PRN Pain 08/09/23 08/11/23 08/09/23 History Allergies Allergy/AdvReac Type Severity Reaction Status Date / Time barley Allergy ALGY-Difficulty Verified 08/09/23 11:41 Breathing peas Allergy ALGY-Anaphy Verified 08/09/23 11:41 laxis Current Medications Generic Name Dose Route Start Last Admin Trade Name Freq PRN Reason Stop Dose Admin Sodium Chloride 1,000 mls @ 30 mls/hr 08/11/23 07:45 08/11/23 07:58 Sodium Chloride 0.9% IV 30 mls/hr .Q24H MING Administration PFSH Anesthesia Medical History Diabetes mellitus type 2 with complications Microscopic hematuria Right leg swelling Hypoglycemia Decreased hearing of both ears Myeloma Degenerative joint disease of spine GERD (gastroesophageal reflux disease) Monoclonal gammopathy Pacemaker Enrolled in chronic care management Neuropathy CARMEN (obstructive sleep apnea) Obesity Multiple sclerosis Hyperlipidemia associated with type 2 diabetes mellitus Essential hypertension Surgical History Hx of colonoscopy unknown when completed Hx of unilateral orchiectomy Left orchiectomy for testicular torsion S/P insertion of spinal cord stimulator S/P placement of cardiac pacemaker S/P hemorrhoidectomy Family History Father CAD (coronary artery disease) Mother CAD (coronary artery disease) Hypertension Social History Smoking and tobacco/nicotine status: never used tobacco/nicotine Alcohol intake: never Substance/Drug Use: never Adopted: No Caregiver/support person: No Lives independently: No Household members: spouse Marital status: Current occupational status: disabled Sexually active: Yes Do you think of yourself as: Straight/Heterosexual Current gender identity: Male Data Anesthesia Cardiac Studies: Echocardiogram 01/29/22 Echocardiogram Ultrasound 11/15/19
[2023-08-11 09:33] VITALS: BP 135/81; PULSE 66; RESP 14; TEMP 36.6; O2SAT 94
[2023-08-11 09:48] VITALS: BP 144/82; PULSE 71; RESP 18; O2SAT 99
[2023-08-11 10:01] LABS: Glucose Point of Care 110 mg/dL (70-110)
--- NOTE | 2023-08-11 10:25 | ANE.PACU2 ---
Inpatient post-anesthesia follow up: Airway intact: Yes Vital signs: Temperature 97.9 F Pulse Rate 71 Respiratory Rate 18 Blood Pressure 144/82 Pulse Oximetry 99 Oxygen Delivery Me thod Room Air Oxygen Flow Rate Fraction of Inspir ed Oxygen Hydration adequate: Yes Nausea and vomiting: No Pain level: 1 Mental status: Baseline
== END 2023-08-11 10:25 | disposition home or self-care (01) ==
PROVIDERS: PCP Registered Nurse; Visit Provider Surgery
PROC: 0DJD8ZZ Inspection of Lower Intestinal Tract, Via Natural or Artificial Opening Endoscopic (ICD-10-PCS; CPT 45378; principal; 2023-08-11 08:20)
DX: Z12.11 Encounter for screening for malignant neoplasm of colon (principal); Z79.82 Long term (current) use of aspirin; Z79.4 Long term (current) use of insulin; Z95.0 Presence of cardiac pacemaker; G47.33 Obstructive sleep apnea (adult) (pediatric); E66.01 Morbid (severe) obesity due to excess calories; Z68.41 Body mass index [BMI] 40.0-44.9, adult; G35 Multiple sclerosis; I11.0 Hypertensive heart disease with heart failure; I50.9 Heart failure, unspecified; Z86.73 Personal history of transient ischemic attack (TIA), and cerebral infarction without residual deficits
CPT/HCPCS: 36416; 45380; 45385; 82962; 88305; J2371; J2704; J3490; J7030

== ENCOUNTER → 2023-08-31 11:35 | Outpatient (BNVA) | payer MEDICARE, SELFPAY | PROVIDERS: PCP Registered Nurse; Visit Provider Surgery | DX: Z09 Encounter for follow-up examination after completed treatment for conditions other than malignant neoplasm (principal) | CPT/HCPCS: 99213 ==

== ENCOUNTER → 2023-09-05 09:54 | Outpatient (BNVA) | payer MEDICARE, SELFPAY | PROVIDERS: PCP Registered Nurse; Visit Provider Podiatrist Foot & Ankle Surgery | DX: L60.3 Nail dystrophy (principal); Z79.4 Long term (current) use of insulin; G62.9 Polyneuropathy, unspecified; I73.9 Peripheral vascular disease, unspecified; B35.3 Tinea pedis; E11.42 Type 2 diabetes mellitus with diabetic polyneuropathy; Z79.84 Long term (current) use of oral hypoglycemic drugs; L84 Corns and callosities | CPT/HCPCS: 11055; 11721 ==

== ENCOUNTER → 2023-10-27 12:37 | Outpatient (BNVA) | payer MEDICARE, SELFPAY | PROVIDERS: PCP Registered Nurse; Visit Provider Internal Medicine | DX: I10 Essential (primary) hypertension (principal); G47.33 Obstructive sleep apnea (adult) (pediatric); E11.69 Type 2 diabetes mellitus with other specified complication; E78.5 Hyperlipidemia, unspecified; Z79.4 Long term (current) use of insulin; I73.9 Peripheral vascular disease, unspecified | CPT/HCPCS: 99214 ==

== ENCOUNTER → 2023-11-01 15:42 | Outpatient (BNVA) | payer MEDICARE, SELFPAY | PROVIDERS: PCP Registered Nurse; Visit Provider Registered Nurse | DX: E11.9 Type 2 diabetes mellitus without complications (principal); I73.9 Peripheral vascular disease, unspecified | CPT/HCPCS: 80053; 83036; 86140 ==

== ENCOUNTER → 2023-11-15 09:52 | Outpatient (BNVA) | payer MEDICARE, SELFPAY | PROVIDERS: PCP Registered Nurse; Visit Provider Podiatrist Foot & Ankle Surgery | DX: L60.3 Nail dystrophy (principal); Z79.4 Long term (current) use of insulin; G60.9 Hereditary and idiopathic neuropathy, unspecified; I73.9 Peripheral vascular disease, unspecified; B35.3 Tinea pedis; E11.69 Type 2 diabetes mellitus with other specified complication; L84 Corns and callosities; Z79.84 Long term (current) use of oral hypoglycemic drugs | CPT/HCPCS: 11056; 11721 ==

== ENCOUNTER → 2023-12-21 09:48 | Outpatient (BNVA) | payer MEDICARE, SELFPAY | PROVIDERS: PCP Registered Nurse; Visit Provider Internal Medicine Cardiovascular Disease | DX: Z45.010 Encounter for checking and testing of cardiac pacemaker pulse generator [battery] (principal) | CPT/HCPCS: 93296 ==

== ENCOUNTER → 2024-02-23 14:08 | Outpatient (BNVA) | payer MEDICARE, SELFPAY | PROVIDERS: PCP Registered Nurse; Visit Provider Registered Nurse | DX: E11.9 Type 2 diabetes mellitus without complications; Z79.4 Long term (current) use of insulin | CPT/HCPCS: 82962 ==

== ENCOUNTER 2024-03-21 10:24 | Outpatient (CLI) | payer MEDICARE, SELFPAY ==
[2024-03-28 09:15] LABS: ALBUMIN 100 %; ALPHA-1-GLOBULINS 0 %; ALPHA-2-GLOBULINS 0 %; BETA GLOBULINS 0 %; GAMMA GLOBULINS 0 %
== END 2024-03-21 10:25 | disposition home or self-care (01) ==
LOC: LAB 10:26
PROVIDERS: Nurse Practitioner; PCP Registered Nurse; Visit Provider Registered Nurse
DX: R13.10 Dysphagia, unspecified (principal); D47.2 Monoclonal gammopathy; R93.89 Abnormal findings on diagnostic imaging of other specified body structures
CPT/HCPCS: 82570; 84166; 86335; 92611

== ENCOUNTER 2024-03-21 11:00 | Oncology outpatient (recurring) (ONCR) | payer MEDICARE, SELFPAY ==
[2024-03-20 13:42] LABS: Basophils % 0.7 %; Eosinophils # 0.2 10^3/uL (0.0-0.8); Eosinophils % 3.4 %; Hematocrit 41.6 % (37-53); Lymphocytes # 1.1 10^3/uL (0.8-4.8); Lymphocytes % 23.9 %; Mean Corpuscular HGB Conc 32.2 g/dL (30-55); Mean Corpuscular Hemoglobin 29.5 pg (27-33); Mean Corpuscular Volume 91.6 fl (82-101); Mean Platelet Volume 9.9 fL (7.4-10.4); Monocytes # 0.4 10^3/uL (0.2-0.9); Monocytes % 7.8 %; Neutrophils # 2.86 10^3/uL (1.8-7.7); Nucleated Red Blood Cells % 0 %; Platelet Count 129 10^3/cmm (157-399); Red Blood Count 4.54 10^6/uL (3.85-5.65); Red Cell Distribution Width 13.6 % (12.1-15.1); White Blood Count 4.47 10^3/uL (3.29-11.43)
[2024-03-20 14:03] LABS: Alanine Aminotransferase 16 U/L (0-41); Albumin Level 3.5 g/dL (3.5-5.2); Alkaline Phosphatase 137 U/L (40-130); Anion Gap 14.8 (5-19); Aspartate Amino Transferase 44 U/L (0-40); Blood Urea Nitrogen 21 mg/dL (8-23); Calcium 8.6 mg/dL (8.5-10.5); Carbon Dioxide 29 mmol/L (22-29); Chloride 99 mmol/L (98-107); Creatinine Clr Calc Pharmacy 64.4453; Glucose 206 mg/dL (65-115); Immunoglobulin IGA 91 mg/dL (70-400); Immunoglobulin IGG 1633 mg/dL (700-1600); Osmolality Calculated 297 mOsm/kg (285-295); Potassium 3.8 mmol/L (3.5-5.1); Sodium 139 mmol/L (136-145); Total Bilirubin 0.3 mg/dL (0.15-1.2); Total Protein 6.5 g/dL (6.6-8.7)
[2024-03-20 14:04] LABS: Immunoglobulin IGM < 25 mg/dL (40-230)
[2024-03-21 09:18] LABS: PROTEIN, TOTAL 6.3 g/dL (6.1-8.1)
--- NOTE | 2024-03-21 11:00 | FL_ITS ---
WS: [id number] Modified barium swallow, 03/21/2024 Clinical Data: Frequent choking with food and water Comparison: None. Fluoroscopy time: 2min [id number] # of spot films: Multiple Findings: The patient had delayed oral preparation with nerissa cracker. There was premature spill to the vallecula and occasionally to the piriform sinuses. There is a small amount of penetration with thin liquids but no aspiration. Minimal residue cleared with swallowing. The barium tablet passed rapidly from the oropharynx into the hypopharynx. The passage through the esophagus into the stomach was not imaged. FL/FL barium swallow modifd [id number] Impression: 1. Delayed oral preparation with nerissa cracker. 2. Premature spill to the vallecula and piriform sinuses. 3. Minimal penetration with thin liquids but no aspiration.
[2024-03-22 11:40] LABS: KAPPA LIGHT CHAIN, FREE, SERUM 162.6 mg/L (3.3-19.4); LAMBDA LIGHT CHAIN, FREE, SERU 13.9 mg/L (5.7-26.3)
[2024-03-22 20:29] LABS: ABNORMAL PROTEIN BAND 1 0.3 g/dL (NONE DETECTED); ABNORMAL PROTEIN BAND 2 0.9 g/dL (NONE DETECTED); ALBUMIN 3.3 g/dL (3.8-4.8); ALPHA 1 GLOBULIN 0.3 g/dL (0.2-0.3); ALPHA 2 GLOBULIN 0.7 g/dL (0.5-0.9); BETA 1 GLOBULIN 0.4 g/dL (0.4-0.6); BETA 2 GLOBULIN 0.3 g/dL (0.2-0.5); GAMMA GLOBULIN 1.3 g/dL (0.8-1.7)
== END 2024-04-13 23:59 | disposition home or self-care (01) ==
LOC: RAD 03-22 → ONCMED 03-22 09:11
PROVIDERS: Nurse Practitioner; PCP Registered Nurse; Visit Provider Surgery
DX: R13.10 Dysphagia, unspecified (principal)
CPT/HCPCS: 36415; 74230; 80053; 82784; 83883; 84153; 84155; 84165; 85025; 86334; 99215

== ENCOUNTER 2024-03-29 08:22 | Day surgery (SDC) | payer MEDICARE, SELFPAY ==
[2024-03-29 08:45] VITALS: BP 182/82; PULSE 84; RESP 16; TEMP 36.7; O2SAT 96
[2024-03-29 08:52] VITALS: BMI 41.1
--- NOTE | 2024-03-29 08:57 | W.PM.OPSUD ---
Surgery/Procedure H&P Update DATE OF PROCEDURE: March 29, 2024 DATE H&P PERFORMED: 03/14/24 H&P UPDATE INFORMATION: I have reviewed H&P completed within last 30 days, I have examined patient prior to procedure, No changes to prior documentation and H&P is in [facility] EMR on date indicated PLANNED PROCEDURE: Operation Date: 03/29/24 09:55 Proposed Procedures p EGD 40079, R13.10(Not Applicable) - Fco Mack MD
--- NOTE | 2024-03-29 09:41 | ECG_ITS ---
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
--- NOTE | 2024-03-29 09:46 | ANES.PREANE2 ---
Pre-Anesthetic Assessment Height/Weight: Height 1.68 m Weight 115.666 kg Temp Pulse Resp BP Pulse Ox O2 Del Method 98.0 F 84 16 182/82 96 Room Air 03/29/24 08:45 03/29/24 08:45 03/29/24 08:45 03/29/24 08:45 03/29/24 08:45 03/29/24 08:45 Preop Diagnosis: dysphagia Operation Date: 03/29/24 09:55 Proposed Procedures p EGD 48813, R13.10(Not Applicable) - Fco Mack MD Familial anesthetic complications: none Was Beta Justina taken within 24 hours: Yes Was Clonidine taken within 24 hours: N/A Last intake: Intake Last Liquid Date 03/28/24 Last Liquid Time 23:00 Last Solid Date 03/28/24 Last Solid Time 23:00 Social No alcohol and No tobacco Exam alert, oriented x 3 and regular rate & rhythm Airway Mallampati: Class III Dentition: false (upper) History/ROS No significant history except as noted Pulmonary Exertional Dyspnea (he states he has had this for years and feels his activity tolerance is at baseline) CV/HEM Hypertension pacemaker; Echo 01/29/22: CONCLUSIONS Normal left ventricular size, systolic function and wall thickness, with no regional wall motion abnormalities. Normal left ventricular wall thickness. Grade I/IV diastolic dysfunction (abnormal relaxation filling pattern), normal to mildly elevated filling pressures. The right ventricle is normal in size and function. Mild pulmonary hypertension. RVSP 43 mm Hg. Structurally normal mitral valve without significant stenosis or prolapse. Trace mitral valve regurgitation. Mildly dilated ascending aorta. Moderately dilated IVC. None reported Hepatic None reported GI dysphagia Metabolic Diabetes Mellitus and Morbid Obesity [facility] [place] spinal stimulator Neuropsych None reported Anesthetic Plan ASA status: 3 Anesthesia: Anesthesia Evaluation and MAC Risk of > 500 ml blood loss (7ml/kg in children): No Medications/Allergies Home Medications ?Medication ?Instructions ?Recorded ?Confirmed ?Last Taken ?Type aspirin 325 mg tablet 325 mg PO DAILY 03/27/19 03/29/24 03/27/24 History chlorthalidone 50 mg tablet 50 mg PO DAILY #90 tabs 10/22/22 03/29/24 03/28/24 Rx diabetic shoes with 3 inserts #1 ea 02/22/23 03/29/24 03/28/24 Rx ketoconazole 2 % topical cream 1 applic topical BID PRN Skin 07/13/23 03/29/24 03/28/24 History Irritation carvedilol 6.25 mg tablet 12.5 mg (2 x 6.25 mg) PO QID #360 10/27/23 03/29/24 03/29/24 Rx tabs furosemide 40 mg tablet (Lasix) 40 mg PO DAILY PRN edema #90 tabs 10/27/23 03/29/24 03/28/24 Rx ketoconazole 2 % topical cream 1 applic topical DAILY #30 grams 01/31/24 03/29/24 03/28/24 Rx insulin lispro 100 unit/mL See Rx Instructions SUBCUT TID 90 02/23/24 03/29/24 03/27/24 Rx subcutaneous pen (Humalog KwikPen days #15 mL (U-100) Insulin) lisinopril 20 mg tablet 20 mg PO BID 90 days #180 tabs 02/23/24 03/29/24 03/28/24 Rx pantoprazole 20 mg tablet,delayed 20 mg PO DAILY 30 days #30 tabs 02/23/24 03/29/24 03/28/24 Rx release insulin glargine 100 unit/mL (3 60 unit (0.6 mL) SUBCUT QAM 90 03/14/24 03/29/24 03/28/24 Rx mL) subcutaneous pen (Lantus days #54 mL Solostar U-100 Insulin) lancets 33 gauge (OneTouch Delica #100 ea 03/16/24 03/29/24 03/28/24 Rx Plus Lancet) blood sugar diagnostic (OneTouch #400 strips 03/22/24 03/29/24 03/28/24 Rx Ultra Test strips) amlodipine 2.5 mg tablet 2.5 mg PO BID 03/27/24 03/29/24 03/29/24 History gabapentin 800 mg tablet 800 mg PO BID 03/27/24 03/29/24 03/28/24 History metformin 1,000 mg tablet 1,000 mg PO BID 03/27/24 03/29/24 03/28/24 History potassium chloride 10 mEq 10 meq PO DAILY 03/27/24 03/29/24 03/28/24 History tablet,extended release rosuvastatin 20 mg tablet 20 mg PO DAILY 03/27/24 03/29/24 03/28/24 History tizanidine 4 mg tablet 8 mg PO BID PRN Pain 03/27/24 03/29/24 03/28/24 History Allergies Allergy/AdvReac Type Severity Reaction Status Date / Time barley Allergy ALGY-Difficulty Verified 03/27/24 11:17 Breathing peas Allergy ALGY-Anaphy Verified 03/27/24 11:17 laxis [facility] Anesthesia Medical History (Updated 03/24/24 @ 18:48 by Maida Jeffery NP) Monoclonal gammopathy Diabetes mellitus type 2 with complications Microscopic hematuria Right leg swelling Hypoglycemia Decreased hearing of both ears Myeloma Degenerative joint disease of spine GERD (gastroesophageal reflux disease) Pacemaker Enrolled in chronic care management Neuropathy CARMEN (obstructive sleep apnea) Obesity Multiple sclerosis Hyperlipidemia associated with type 2 diabetes mellitus Essential hypertension Surgical History Hx of colonoscopy unknown when completed Hx of unilateral orchiectomy Left orchiectomy for testicular torsion S/P insertion of spinal cord stimulator S/P placement of cardiac pacemaker S/P hemorrhoidectomy Family History Father CAD (coronary artery disease) Mother CAD (coronary artery disease) Hypertension Social History Smoking and tobacco/nicotine status: never used tobacco/nicotine Alcohol intake: never Substance/Drug Use: never Adopted: No Caregiver/support person: No Lives independently: No Household members: spouse Marital status: Current occupational status: disabled Sexually active: Yes Do you think of yourself as: Straight/Heterosexual Current gender identity: Male Data Anesthesia Cardiac Studies: Echocardiogram 01/29/22 Echocardiogram Ultrasound 11/15/19
[2024-03-29 10:25] VITALS: BP 151/74; PULSE 73; RESP 16; TEMP 36.4; O2SAT 96
--- NOTE | 2024-03-29 10:28 | ANE.PACU2 ---
Inpatient post-anesthesia follow up: Airway intact: Yes Vital signs: Temperature 97.5 F Pulse Rate 73 Respiratory Rate 16 Blood Pressure 151/74 Pulse Oximetry 96 Oxygen Delivery Me thod Nasal Cannula Oxygen Flow Rate 2 Fraction of Inspir ed Oxygen Hydration adequate: Yes Nausea and vomiting: No Pain level: 0 Mental status: Baseline
[2024-03-29 10:44] LABS: Glucose Point of Care 134 mg/dL (70-110)
[2024-03-29 10:46] VITALS: BP 155/84; PULSE 69; RESP 20; O2SAT 98
== END 2024-03-29 11:01 | disposition home or self-care (01) ==
PROVIDERS: PCP Registered Nurse; Visit Provider Surgery
PROC: 0DJ08ZZ Inspection of Upper Intestinal Tract, Via Natural or Artificial Opening Endoscopic (ICD-10-PCS; principal; 2024-03-29 09:55)
DX: K29.50 Unspecified chronic gastritis without bleeding (principal); K29.80 Duodenitis without bleeding; R13.10 Dysphagia, unspecified; R06.09 Other forms of dyspnea; I10 Essential (primary) hypertension; Z95.0 Presence of cardiac pacemaker; E66.01 Morbid (severe) obesity due to excess calories; Z68.41 Body mass index [BMI] 40.0-44.9, adult; Z79.899 Other long term (current) drug therapy; Z79.4 Long term (current) use of insulin; Z79.82 Long term (current) use of aspirin; Z79.84 Long term (current) use of oral hypoglycemic drugs; Z91.018 Allergy to other foods; G47.33 Obstructive sleep apnea (adult) (pediatric); G35 Multiple sclerosis; E11.40 Type 2 diabetes mellitus with diabetic neuropathy, unspecified; E11.69 Type 2 diabetes mellitus with other specified complication; D47.2 Monoclonal gammopathy; K22.89 Other specified disease of esophagus
CPT/HCPCS: 36416; 43239; 82962; 88305; 88342; 93005; J2704; J3490

== ENCOUNTER → 2024-04-11 10:18 | Outpatient (BNVA) | payer MEDICARE, SELFPAY | PROVIDERS: PCP Registered Nurse; Visit Provider Surgery | DX: Z09 Encounter for follow-up examination after completed treatment for conditions other than malignant neoplasm (principal); K22.711 Barrett's esophagus with high grade dysplasia | CPT/HCPCS: 99214 ==

== ENCOUNTER → 2024-05-03 14:21 | Outpatient (BNVA) | payer MEDICARE, SELFPAY | PROVIDERS: PCP Registered Nurse; Visit Provider Internal Medicine | DX: I10 Essential (primary) hypertension (principal); G47.33 Obstructive sleep apnea (adult) (pediatric); E11.69 Type 2 diabetes mellitus with other specified complication; E78.5 Hyperlipidemia, unspecified; Z79.4 Long term (current) use of insulin; I73.9 Peripheral vascular disease, unspecified | CPT/HCPCS: 99214 ==

== ENCOUNTER → 2024-05-09 14:22 | Outpatient (BNVA) | payer MEDICARE, SELFPAY | PROVIDERS: PCP Registered Nurse; Visit Provider Podiatrist Foot & Ankle Surgery | DX: E11.42 Type 2 diabetes mellitus with diabetic polyneuropathy (principal); L60.3 Nail dystrophy; L84 Corns and callosities; Z79.4 Long term (current) use of insulin; G60.9 Hereditary and idiopathic neuropathy, unspecified; I73.9 Peripheral vascular disease, unspecified; B35.3 Tinea pedis; M77.42 Metatarsalgia, left foot; R60.9 Edema, unspecified; E11.49 Type 2 diabetes mellitus with other diabetic neurological complication; Z79.84 Long term (current) use of oral hypoglycemic drugs | CPT/HCPCS: 11056; 11721; 99213 ==

== ENCOUNTER → 2024-06-06 10:57 | Outpatient (BNVA) | payer MEDICARE, SELFPAY | PROVIDERS: PCP Registered Nurse; Visit Provider Internal Medicine | DX: Z45.018 Encounter for adjustment and management of other part of cardiac pacemaker (principal) | CPT/HCPCS: 93296 ==

== ENCOUNTER → 2024-08-09 14:03 | Outpatient (BNVA) | payer MEDICARE, SELFPAY | PROVIDERS: PCP Registered Nurse; Visit Provider Podiatrist Foot & Ankle Surgery | DX: E11.49 Type 2 diabetes mellitus with other diabetic neurological complication (principal); L60.3 Nail dystrophy; L84 Corns and callosities; Z79.4 Long term (current) use of insulin; G60.9 Hereditary and idiopathic neuropathy, unspecified; I73.9 Peripheral vascular disease, unspecified; B35.3 Tinea pedis; M77.42 Metatarsalgia, left foot; R60.9 Edema, unspecified; Z79.84 Long term (current) use of oral hypoglycemic drugs | CPT/HCPCS: 11056; 11721 ==

== ENCOUNTER → 2024-08-30 11:39 | Outpatient (BNVA) | payer MEDICARE, SELFPAY | PROVIDERS: PCP Registered Nurse; Visit Provider Registered Nurse | DX: E11.9 Type 2 diabetes mellitus without complications (principal); Z79.4 Long term (current) use of insulin | CPT/HCPCS: 80053; 80061; 83036; 85025 ==

== ENCOUNTER → 2024-09-05 11:00 | Outpatient (BNVA) | payer MEDICARE, SELFPAY | PROVIDERS: PCP Registered Nurse; Visit Provider Internal Medicine Cardiovascular Disease | DX: Z45.018 Encounter for adjustment and management of other part of cardiac pacemaker (principal) | CPT/HCPCS: 93296 ==

== ENCOUNTER → 2024-10-25 14:23 | Outpatient (BNVA) | payer MEDICARE, SELFPAY | PROVIDERS: PCP Registered Nurse; Visit Provider Podiatrist Foot & Ankle Surgery | DX: E11.8 Type 2 diabetes mellitus with unspecified complications (principal); B35.3 Tinea pedis; L60.3 Nail dystrophy; E11.9 Type 2 diabetes mellitus without complications; Z79.4 Long term (current) use of insulin; G60.9 Hereditary and idiopathic neuropathy, unspecified; I73.9 Peripheral vascular disease, unspecified; M77.42 Metatarsalgia, left foot; R60.9 Edema, unspecified; Z79.84 Long term (current) use of oral hypoglycemic drugs | CPT/HCPCS: 11721; 99213 ==

== ENCOUNTER → 2024-11-08 14:14 | Outpatient (BNVA) | payer MEDICARE, SELFPAY | PROVIDERS: PCP Registered Nurse; Visit Provider Internal Medicine | DX: I10 Essential (primary) hypertension (principal); G47.33 Obstructive sleep apnea (adult) (pediatric); E11.69 Type 2 diabetes mellitus with other specified complication; E78.5 Hyperlipidemia, unspecified; Z79.4 Long term (current) use of insulin; E11.51 Type 2 diabetes mellitus with diabetic peripheral angiopathy without gangrene | CPT/HCPCS: 99214 ==

== ENCOUNTER → 2024-11-20 11:50 | Outpatient (BNVA) | payer MEDICARE, SELFPAY | PROVIDERS: PCP Registered Nurse; Visit Provider Registered Nurse | DX: M62.838 Other muscle spasm (principal) | CPT/HCPCS: 80048 ==

== ENCOUNTER 2024-11-29 08:49 | Oncology outpatient (recurring) (ONCR) | payer MEDICARE, SELFPAY ==
--- NOTE | 2024-11-29 09:15 | CT_ITS ---
WS: [id number] CT ABDOMEN AND PELVIS NONCONTRAST HISTORY: N20.0 - Calculus of kidney TECHNIQUE: Imaging performed through the abdomen and pelvis. Coronal and sagittal reformats are submitted. All CT scans at [facility] use at least one of these dose optimization techniques: automated exposure control; mA and/or kV adjustment per patient size (includes targeted exams where dose is matched to clinical indication); or iterative reconstruction. DLP: 1024.63 mGy.cm COMPARISON: 07/14/2023 Lower thorax: Lung bases are clear. Cardiac pacer wires in the RIGHT heart. Small caliber hiatal hernia. Liver: Normal size liver. No mass or bile duct dilatation. Gallbladder: Normal gallbladder. No pericholecystic fluid or cholelithiasis. No gallbladder wall thickening. Pancreas: Normal size and attenuation. Normal pancreatic duct. No pancreatitis or mass. Spleen: Normal. Adrenal glands: Normal. No mass. Right kidney: Normal size RIGHT kidney with mild perinephric stranding which may be chronic. There are 2 exophytic cysts with the largest from the lower pole measuring 4.9 x 5.1 cm. No obstruction of the kidney. Left kidney: Mild perinephric stranding. Tiny exophytic nodule from the anterior lower kidney is stable. No ureteral obstruction. Aorta: Normal abdominal aorta, no aneurysm or atherosclerosis. No free fluid, intraperitoneal air or significant lymphadenopathy. GI tract: Normally distended stomach. No small bowel obstruction. Tortuous colon with constipation. Moderate sigmoid burden beginning within the descending colon extending to the sigmoid. No evidence for acute diverticulitis and no obstruction. Abdominal wall: Small umbilical hernia contains fat only. Pelvis: Enlarged prostate gland encroaching into the base the bladder. Urinary bladder is moderately well distended. Widely patent fat-containing inguinal canals. Osseous structures: Degenerative changes in the lumbar spine. Partial fusion RIGHT SI joint. Spinal cord stimulator. CT/CT kidney stone [id number] IMPRESSION: 1. Mild bilateral perinephric stranding with no renal obstruction. 2. Stable LEFT renal low-attenuation masses which are probably cysts. 3. No ureteral calcification. 4. Moderate sigmoid diverticulosis. No evidence for acute diverticulitis. 5. Fat-containing bilateral inguinal canals. 6. Enlarged prostate gland encroaching into the base of the bladder.
== END 2024-12-14 23:59 | disposition home or self-care (01) ==
LOC: ONCMED 08:54
PROVIDERS: PCP Registered Nurse; Visit Provider Surgery
DX: R13.10 Dysphagia, unspecified (principal); D47.2 Monoclonal gammopathy; R97.20 Elevated prostate specific antigen [PSA]; R55 Syncope and collapse; G62.9 Polyneuropathy, unspecified; Z95.0 Presence of cardiac pacemaker; Z79.899 Other long term (current) drug therapy; N20.0 Calculus of kidney
CPT/HCPCS: 74176

== ENCOUNTER → 2024-12-26 11:40 | Outpatient (BNVA) | payer MEDICARE, SELFPAY | PROVIDERS: PCP Registered Nurse; Visit Provider Internal Medicine | DX: Z45.018 Encounter for adjustment and management of other part of cardiac pacemaker (principal) | CPT/HCPCS: 93296 ==

== ENCOUNTER → 2025-01-17 13:15 | Outpatient (BNVA) | payer MEDICARE, SELFPAY | PROVIDERS: PCP Registered Nurse; Visit Provider Podiatrist Foot & Ankle Surgery | DX: E11.42 Type 2 diabetes mellitus with diabetic polyneuropathy (principal); B35.3 Tinea pedis; E11.8 Type 2 diabetes mellitus with unspecified complications; L60.3 Nail dystrophy; Z79.4 Long term (current) use of insulin; G60.9 Hereditary and idiopathic neuropathy, unspecified; I73.9 Peripheral vascular disease, unspecified; M77.42 Metatarsalgia, left foot; R60.9 Edema, unspecified; Z79.84 Long term (current) use of oral hypoglycemic drugs | CPT/HCPCS: 11056; 11721 ==